=== PATIENT | female | born 2000 | race Caucasian/White ===

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

== ENCOUNTER → 2019-04-19 09:43 | Outpatient (CLI) | payer BC, SELFPAY ==
[2018-08-17 17:57] VITALS: BMI 36.1
[2019-04-19 12:26] LABS: Erythrocyte Sedimentation Rate 68 mm/hr (0-20)
[2019-04-19 12:29] LABS: Absolute Neutrophil Count 8.5 X10^3/uL (2.0-7.7); Basophil# 0.04 X10^3/uL; Basophil% 0.3 % (0-1); Eosinophil# 0.11 X10^3/uL; Eosinophils% 0.9 % (0-5); Hematocrit 36.6 % (37-47); Hemoglobin 11.1 g/dL (12.0-15.0); Mean Corp Hgb Conc 30.3 g/dL (32-36); Mean Corpuscular Hgb 24.4 pg (27.0-32.0); Mean Corpuscular Volume 80.4 fL (81-99); Mean Platelet Vol. 11.5 fl (6.2-12.0); Monocyte% 4.1 % (0-10); NRBC Flagged by Analyzer 0 % (0-5); Neutrophil # 8.52 X10^3/uL (2.7-7.7); Neutrophil % 70.5 % (47-70); Platelet Count 358 K/mm3 (150-450); RBC Distribution Width CV 14.8 % (11.6-14.6); RBC Distribution Width SD 43.2 fl (35.1-43.9); Red Blood Count 4.55 M/mm3 (4.2-5.4); White Blood Count 12.1 K/mm3 (4.4-11.0)
[2019-04-19 12:41] LABS: ALB/GLOB Ratio 0.6 RATIO (0.9-2.4); AST(SGOT) 8 U/L (15-37); Alanine Aminotransfer ALT/SGPT 16 U/L (13-56); Alkaline Phosphatase 103 U/L (45-117); Anion Gap 8 (5-15); BUN 7 mg/dL (7-18); BUN/Creat Ratio 9.9 RATIO (10-20); Calcium,Total 8.9 mg/dL (8.5-10.1); Chloride 109 mmol/L (98-107); Creatinine, Serum 0.71 mg/dL (0.55-1.02); EST Glomerular Filtration Rate 112 mL/min (>60); Est Glom Filt Rate - Afr Amer 135 mL/min (>60); Glucose 75 mg/dL (74-106); Potassium 4.2 mmol/L (3.5-5.1); Sodium Level 141 mmol/L (136-145)
[2019-04-22 15:07] LABS: Beef <0.10 kU/L (Class 0); Chocolate <0.10 kU/L (Class 0); Corn <0.10 kU/L (Class 0); Egg, Whole <0.10 kU/L (Class 0); Milk (Cow) <0.10 kU/L (Class 0); Peanut <0.10 kU/L (Class 0); Pork <0.10 kU/L (Class 0); Soybean <0.10 kU/L (Class 0); Wheat <0.10 kU/L (Class 0)
[2019-04-23 10:11] LABS: Chicken <0.10 kU/L (Class 0); Pork <0.10 kU/L (Class 0)
== END ==
PROVIDERS: Family Provider Family Medicine; PCP Family Medicine; Referring Provider Family Medicine; Visit Provider Family Medicine
DX: R10.31 Right lower quadrant pain (principal)
CPT/HCPCS: 36415; 80053; 85025; 85652; 86003; 86005; 86140

== ENCOUNTER → 2019-04-25 06:51 | Outpatient (CLI) | payer BC, SELFPAY ==
[2018-08-17 17:57] VITALS: BMI 36.1
--- NOTE | 2019-04-25 06:55 | CT_ITS ---
STUDY: CT ABDOMEN AND PELVIS WITH CONTRAST REASON FOR EXAM: Female, 18 years old. Intermittent diffuse abdominal pain for 8 months. Tender right lower quadrant. RADIATION DOSAGE (If Supplied By Facility): CTDIvol = ( 13.48 ) mGy, DLP = ( 101.39 ) mGycm TECHNIQUE: Transaxial images were obtained from the dome of the diaphragm to the symphysis pubis with oral contrast. 100cc IV/Oral Isovue 300 was administered. Sagittal and coronal images were reconstructed. Individualized dose optimization techniques were used for this CT. COMPARISON: None. FINDINGS: The visualized lung bases are unremarkable. The visualized portions of the heart are within normal limits. Normal liver. Normal gallbladder and extrahepatic biliary system. Normal spleen. Normal pancreas. Normal bilateral adrenal glands. Normal right kidney. 3 mm nonobstructive calculus in the upper pole calyx of the left kidney. Normal visualized stomach. Normal small intestine. Normal colon. The appendix is visualized and appears normal. Normal abdominal aorta. Normal inferior vena cava. There is borderline retroperitoneal lymphadenopathy with enlarged nodes no greater than 10mm in the short axis diameter. Normal urinary bladder. Normal abdominal wall. Small benign-appearing bilateral inguinal lymph nodes. Normal osseous structures. CT/Abdomen/Pelvis WITH Contrast IMPRESSION: Nonobstructive calculus in the upper pole calyx of the left kidney. Electronically Signed: Eagle Storey, at 15:16 EDT , Service support ,
== END ==
PROVIDERS: Family Provider Family Medicine; PCP Family Medicine; Referring Provider Family Medicine; Visit Provider Family Medicine
DX: R10.31 Right lower quadrant pain (principal); R19.7 Diarrhea, unspecified
CPT/HCPCS: 74177; Q9967

== ENCOUNTER → 2019-05-02 13:39 | Outpatient (CLI) | payer BC, SELFPAY ==
[2018-08-17 17:57] VITALS: BMI 36.1
[2019-05-05 14:12] LABS: CMV Acute Antibody IgM < 30.0 AU/mL (0.0-29.9); EBV Acute VCA IgM < 36.0 U/mL (0.0-35.9); EBV Early Antigen IgG <9.0 U/mL (0.0-8.9); EBV Nuclear Antigen IgG < 18.0 U/mL (0.0-17.9); EBV-VCA IgG < 18.0 U/mL (0.0-17.9); PARVOVIRUS B19 IGG 5.8 index (0.0-0.8); PARVOVIRUS B19 IGM 0.2 index (0.0-0.8); Toxoplasma Gondii IgM < 3.0 AU/mL (0.0-7.9)
== END ==
PROVIDERS: Family Provider Family Medicine; PCP Family Medicine; Referring Provider Family Medicine; Visit Provider Family Medicine
DX: R59.9 Enlarged lymph nodes, unspecified (principal)
CPT/HCPCS: 36415; 86645; 86663; 86664; 86665; 86747; 86778

== ENCOUNTER → 2019-06-04 11:46 | Outpatient (CLI) | payer BC, SELFPAY ==
[2018-08-17 17:57] VITALS: BMI 36.1
== END ==
PROVIDERS: Family Provider Family Medicine; PCP Family Medicine; Visit Provider Family Medicine
DX: J02.9 Acute pharyngitis, unspecified (principal)
CPT/HCPCS: 87070

== ENCOUNTER → 2020-02-05 08:46 | Outpatient (CLI) | payer OTHER, SELFPAY ==
[2019-08-27 13:50] VITALS: BMI 36.1
[2020-02-05 09:28] LABS: Erythrocyte Sedimentation Rate 29 mm/hr (0-20)
[2020-02-05 09:31] LABS: Absolute Lymphocyte Count 2.71 X10^3/uL (0.83-4.51); Absolute Neutrophil Count 7.9 X10^3/uL (2.0-7.7); Basophil# 0.03 X10^3/uL; Basophil% 0.3 % (0-1); Eosinophil# 0.05 X10^3/uL; Eosinophils% 0.4 % (0-5); Hematocrit 37.9 % (37-47); Hemoglobin 11.6 g/dL (12.0-15.0); Lymphocyte # 2.71 X10^3/ul (4.0); Lymphocyte % 24.3 % (19-41); Mean Corp Hgb Conc 30.6 g/dL (32-36); Mean Corpuscular Hgb 23.8 pg (27.0-32.0); Mean Corpuscular Volume 77.8 fL (81-99); Mean Platelet Vol. 10.8 fl (6.2-12.0); Monocyte# 0.45 X10^3/uL; NRBC Flagged by Analyzer 0 % (0-5); Neutrophil # 7.88 X10^3/uL (2.7-7.7); Neutrophil % 70.6 % (47-70); Platelet Count 440 K/mm3 (150-450); RBC Distribution Width CV 15.9 % (11.6-14.6); RBC Distribution Width SD 44.8 fl (35.1-43.9); Red Blood Count 4.87 M/mm3 (4.2-5.4); White Blood Count 11.2 K/mm3 (4.4-11.0)
[2020-02-05 09:49] LABS: ALB/GLOB Ratio 0.6 RATIO (0.9-2.4); AST(SGOT) 13 U/L (15-37); Alanine Aminotransfer ALT/SGPT 16 U/L (13-56); Albumin, Serum 2.9 g/dL (3.2-5.0); Alkaline Phosphatase 89 U/L (45-117); Anion Gap 10 (5-15); BUN 8 mg/dL (7-18); BUN/Creat Ratio 9.7 RATIO (10-20); Calcium,Total 8.8 mg/dL (8.5-10.1); Chloride 104 mmol/L (98-107); Creatinine, Serum 0.83 mg/dL (0.55-1.02); EST Glomerular Filtration Rate 93 mL/min (>60); Est Glom Filt Rate - Afr Amer 113 mL/min (>60); Ferritin 4 ng/mL (8-252); Globulin 5.2 g/dL (2.2-4.2); Glucose 87 mg/dL (74-106); Iron 46 ug/dL (50-170); Iron Binding Capacity,Total 599 ug/dL (250-450); PERCENT IRON SATURATION 7.7 % (15.0-55.0); Potassium 3.9 mmol/L (3.5-5.1); Protein, Total 8.1 g/dL (6.4-8.2); Sodium Level 138 mmol/L (136-145); Thyroid Stim Hormone (TSH) 3.76 uIU/mL (0.358-3.74)
== END ==
PROVIDERS: PCP Family Medicine; Referring Provider Family Medicine; Visit Provider Family Medicine
DX: R19.4 Change in bowel habit (principal); R70.0 Elevated erythrocyte sedimentation rate
CPT/HCPCS: 36415; 80053; 82728; 83540; 83550; 84443; 85025; 85652; 86140

== ENCOUNTER → 2020-02-07 07:45 | Outpatient (CLI) | payer OTHER, SELFPAY ==
[2019-08-27 13:50] VITALS: BMI 36.1
--- NOTE | 2020-02-07 07:50 | CT_ITS ---
STUDY: CT ABDOMEN AND PELVIS WITH CONTRAST REASON FOR EXAM: Female, 19 years old. LOW ABD PAIN X 1 YR, DIARRHEA/CONSTIPATION RADIATION DOSAGE (If Supplied By Facility): CTDIvol = ( 15.15 ) mGy, DLP = ( 1259.14 ) mGycm TECHNIQUE: Transaxial images were obtained from the dome of the diaphragm to the symphysis pubis with oral contrast. Oral and amp; IV Readi-CAT and amp; 100mL Isovue-300 was administered. Sagittal and coronal images were reconstructed. Individualized dose optimization techniques were used for this CT. COMPARISON: Comparison is made with prior examination dated April 25, 2019. FINDINGS: The visualized lung bases are unremarkable. The visualized portions of the heart are within normal limits. Normal liver. Normal gallbladder and extrahepatic biliary system. Normal spleen. Normal pancreas. Normal bilateral adrenal glands. Normal right kidney. Normal left kidney. Normal visualized stomach. Normal small intestine. Normal colon. The appendix is visualized and appears normal. Normal abdominal aorta. Normal inferior vena cava. Normal retroperitoneum. Normal urinary bladder. Normal abdominal wall. Normal osseous structures. CT/Abdomen/Pelvis WITH Contrast IMPRESSION: Normal enhanced CT of the abdomen and pelvis. Electronically Signed: Eagle Storey, at 9:27 EDT , Service support ,
== END ==
PROVIDERS: PCP Family Medicine; Referring Provider Family Medicine; Visit Provider Family Medicine
DX: R10.30 Lower abdominal pain, unspecified (principal)
CPT/HCPCS: 74177; Q9967

== ENCOUNTER → 2020-02-25 16:37 | Outpatient (CLI) | payer OTHER, SELFPAY ==
[2019-08-27 13:50] VITALS: BMI 36.1
[2020-02-27 16:08] LABS: Endomysial Antibody IgA Negative (Negative)
[2020-03-01 17:45] LABS: Immunoglobulin A 216 mg/dL (87-352); t-Transglutaminase IgA <2 U/mL (0-3)
== END ==
PROVIDERS: PCP Family Medicine; Referring Provider Internal Medicine Gastroenterology; Visit Provider Internal Medicine Gastroenterology
DX: R10.9 Unspecified abdominal pain (principal); R19.7 Diarrhea, unspecified
CPT/HCPCS: 36415; 82784; 83516; 86255

== ENCOUNTER → 2020-03-10 | Outpatient (CLI) | payer OTHER, SELFPAY ==
[2019-08-27 13:50] VITALS: BMI 36.1
--- NOTE | 2020-03-10 12:10 | COLBX_PTH ---
PATIENT: HILDA MORGAN LOC: [facility] U#:[id number] AGE/SX: 19/F ROOM: RE03/10/[address]: Dr. Esteban Rhoades MD : 2000 BED: DIS: 03/10/2020 SPEC #: [id number] RECD: 03/10/20 14:59 STATUS: DAMI MELVIN #: [id number] WALE: 03/10/20 12:[address]: Esteban Rhoades DEPT: SURGICAL PATHOLOGY RECD BY: Fish Mak ENTERED: 03/11/20 07:38 SP TYPE: COLON BX OTHR DR: Dr. Antonio Templeton MD [facility] Tissues: A - Ileum, NOS B - COLON BIOPSY Procedures: Surgery Specimen Level IV HEADER OPERATION: Colonoscopy PRE-OP DIAGNOSIS: Abdominal pain, diarrhea, iron deficiency anemia TISSUE SUBMITTED: A - Terminal ileum, rule out Crohn's, B - Right and left colon, rule out microscopic colitis MICROSCOPIC DIAGNOSIS A. Terminal ileum, biopsy: Fragments of small intestinal mucosa, no pathologic diagnosis. B. Right and left colon, biopsy: Fragments of colonic mucosa, no pathologic diagnosis. MIRANDA:sarah 03/12/20 COMMENT Correlation with clinical, endoscopic findings and appropriate follow up are necessary. MICROSCOPIC DESCRIPTION Slides are reviewed. GROSS DESCRIPTION A - Received in fixative is one container labeled with the patient's name and designated terminal ileum. The specimen consists of multiple irregular fragments of light fontanez soft tissue that in aggregate measure 0.5 x 0.5 x 0.1 cm. The specimen is totally submitted in one cassette. B - Received in fixative is one container labeled with the patient's name and designated right and left colon. The specimen consists of multiple irregular fragments of light fontanez soft tissue that in aggregate measure 1.5 x 0.6 x 0.1 cm. The specimen is totally submitted in one cassette. / MIRANDA:sarah 03/11/20 TC:4 CPT: 51555 x2
== END | disposition home or self-care (01) ==
PROVIDERS: PCP Family Medicine; Referring Provider Internal Medicine Gastroenterology; Visit Provider Internal Medicine Gastroenterology
DX: R10.9 Unspecified abdominal pain (principal); R19.7 Diarrhea, unspecified; D50.9 Iron deficiency anemia, unspecified
CPT/HCPCS: 88305

== ENCOUNTER → 2020-05-09 16:25 | Outpatient (CLI) | payer OTHER, SELFPAY ==
[2020-05-09 13:05] VITALS: BMI 40.1
[2020-05-15 16:43] LABS: HPV Reflexed? NOT INDICATED
== END ==
PROVIDERS: PCP Family Medicine; Referring Provider Obstetrics & Gynecology; Visit Provider Obstetrics & Gynecology
DX: Z12.4 Encounter for screening for malignant neoplasm of cervix (principal)
CPT/HCPCS: 88175; G0145

== ENCOUNTER → 2020-08-01 08:12 | Outpatient (CLI) | payer OTHER, SELFPAY ==
[2020-06-25 14:48] VITALS: BMI 40.4
[2020-08-01 09:22] LABS: Hematocrit 38.4 % (37-47); Hemoglobin 11.7 g/dL (12.0-15.0); Mean Corp Hgb Conc 30.5 g/dL (32-36); Mean Corpuscular Hgb 25.2 pg (27.0-32.0); Mean Corpuscular Volume 82.8 fL (81-99); Mean Platelet Vol. 11.3 fl (6.2-12.0); Platelet Count 364 K/mm3 (150-450); RBC Distribution Width CV 15.5 % (11.6-14.6); RBC Distribution Width SD 46.5 fl (35.1-43.9); Red Blood Count 4.64 M/mm3 (4.2-5.4); White Blood Count 7.9 K/mm3 (4.4-11.0)
[2020-08-01 09:54] LABS: Ferritin 16 ng/mL (8-252); Iron 30 ug/dL (50-170)
== END ==
PROVIDERS: PCP Family Medicine; Referring Provider Internal Medicine Gastroenterology; Visit Provider Internal Medicine Gastroenterology
DX: D50.9 Iron deficiency anemia, unspecified (principal)
CPT/HCPCS: 36415; 82728; 83540; 85027

== ENCOUNTER → 2020-10-03 13:03 | Outpatient (CLI) | payer OTHER, SELFPAY ==
[2020-08-04 09:26] VITALS: BMI 40.5
[2020-10-03 15:16] LABS: Absolute Lymphocyte Count 4.25 X10^3/uL (0.83-4.51); Absolute Neutrophil Count 5.5 X10^3/uL (2.0-7.7); Basophil# 0.05 X10^3/uL; Basophil% 0.5 % (0-1); Eosinophil# 0.12 X10^3/uL; Eosinophils% 1.1 % (0-5); Hematocrit 39.3 % (37-47); Hemoglobin 11.8 g/dL (12.0-15.0); Lymphocyte # 4.25 X10^3/ul (4.0); Lymphocyte % 40.4 % (19-41); Mean Corpuscular Hgb 25.3 pg (27.0-32.0); Mean Corpuscular Volume 84.3 fL (81-99); Mean Platelet Vol. 10.8 fl (6.2-12.0); Monocyte# 0.55 X10^3/uL; Monocyte% 5.2 % (0-10); NRBC Flagged by Analyzer 0 % (0-5); Neutrophil # 5.51 X10^3/uL (2.7-7.7); Neutrophil % 52.5 % (47-70); Platelet Count 336 K/mm3 (150-450); RBC Distribution Width CV 15.7 % (11.6-14.6); RBC Distribution Width SD 48.5 fl (35.1-43.9); Red Blood Count 4.66 M/mm3 (4.2-5.4); White Blood Count 10.5 K/mm3 (4.4-11.0)
[2020-10-03 15:47] LABS: Ferritin 30 ng/mL (8-252); Iron 122 ug/dL (50-170)
== END ==
PROVIDERS: PCP Family Medicine; Referring Provider Internal Medicine Gastroenterology; Visit Provider Internal Medicine Gastroenterology
DX: D50.9 Iron deficiency anemia, unspecified (principal)
CPT/HCPCS: 36415; 82728; 83540; 85025

== ENCOUNTER → 2021-02-25 16:53 | Outpatient (CLI) | payer OTHER, SELFPAY ==
[2020-08-04 09:26] VITALS: BMI 40.5
[2021-02-25 17:50] LABS: Absolute Lymphocyte Count 1.98 X10^3/uL (0.83-4.51); Absolute Neutrophil Count 3.8 X10^3/uL (2.0-7.7); Basophil# 0.03 X10^3/uL; Basophil% 0.5 % (0-1); Eosinophil# 0.08 X10^3/uL; Eosinophils% 1.3 % (0-5); Hematocrit 42.3 % (37-47); Hemoglobin 13.3 g/dL (12.0-15.0); Lymphocyte # 1.98 X10^3/ul (0.83-4.51); Lymphocyte % 31.4 % (19-41); Mean Corp Hgb Conc 31.4 g/dL (32-36); Mean Corpuscular Hgb 27.4 pg (27.0-32.0); Mean Corpuscular Volume 87.2 fL (81-99); Mean Platelet Vol. 10.6 fl (6.2-12.0); Monocyte# 0.39 X10^3/uL; Monocyte% 6.2 % (0-10); NRBC Flagged by Analyzer 0 % (0-5); Neutrophil # 3.82 X10^3/uL (2.7-7.7); Neutrophil % 60.4 % (47-70); Platelet Count 329 K/mm3 (150-450); RBC Distribution Width CV 13.6 % (11.6-14.6); RBC Distribution Width SD 43.8 fl (35.1-43.9); Red Blood Count 4.85 M/mm3 (4.2-5.4); White Blood Count 6.3 K/mm3 (4.4-11.0)
[2021-02-25 18:29] LABS: Erythrocyte Sedimentation Rate 65 mm/hr (0-30)
[2021-02-25 18:42] LABS: ALB/GLOB Ratio 0.8 RATIO (0.9-2.4); AST(SGOT) 19 U/L (15-37); Alanine Aminotransfer ALT/SGPT 24 U/L (13-56); Albumin, Serum 3.8 g/dL (3.2-5.0); Alkaline Phosphatase 183 U/L (45-117); Anion Gap 9 (5-15); BUN 11 mg/dL (7-18); BUN/Creat Ratio 14.3 RATIO (10-20); Calcium,Total 8.9 mg/dL (8.5-10.1); Chloride 102 mmol/L (98-107); Creatinine, Serum 0.77 mg/dL (0.55-1.02); EST Glomerular Filtration Rate 100 mL/min (>60); Est Glom Filt Rate - Afr Amer 121 mL/min (>60); Free T3 2.9 pg/mL (2.18-3.98); Glucose 71 mg/dL (74-106); Potassium 3.8 mmol/L (3.5-5.1); Protein, Total 8.8 g/dL (6.4-8.2); Sodium Level 137 mmol/L (136-145); T4 Free Direct 1.08 ng/dL (0.76-1.46); Thyroid Stim Hormone (TSH) 1.99 uIU/mL (0.358-3.74)
[2021-02-27 07:30] LABS: ASO Titer 27.2 IU/mL (0.0-200.0)
[2021-02-27 11:04] LABS: HCG BETA-SUBUNIT QUANT. < 1 mIU/mL (.)
== END ==
PROVIDERS: PCP Family Medicine; Visit Provider Family Medicine
DX: R53.83 Other fatigue (principal); R70.0 Elevated erythrocyte sedimentation rate
CPT/HCPCS: 36415; 80053; 84439; 84443; 84481; 84702; 85025; 85652; 86060; 86140; 86141

== ENCOUNTER 2021-03-06 12:55 | Emergency (ER) | payer OTHER, SELFPAY ==
[2021-03-01 09:38] VITALS: BMI 40.0
[2021-03-06 12:56] VITALS: BP 163/82; PULSE 122; RESP 18; TEMP 36.4; O2SAT 97; BMI 40.4
--- NOTE | 2021-03-06 14:20 | RAD_ITS ---
STUDY: X-RAY - ABDOMEN/PELVIS REASON FOR EXAM: Female, 20 years old. Constipation TECHNIQUE: Single AP view of the abdomen / pelvis. COMPARISON: None. FINDINGS: Normal visualized lung bases. There is a moderate amount of colonic fecal material. The visualized liver, spleen and kidneys are grossly normal in size and morphology. An IUD is seen in the pelvis. Normal visualized osseous structures. RAD/Abdomen Single View IMPRESSION: Moderate amount of fecal material is seen in the pelvis. Electronically Signed: Eagle Storey MD at 14:49 EDT , Service support ,
[2021-03-06] MEDS: Ondansetron ODT 4 MG Tablet PO (14:42)
--- NOTE | 2021-03-06 15:13 | EX.ED.DYSGE1 ---
HPI History of Present Illness Chief Complaint: Constipation Informant: patient Narrative Narrative: 20-year-old female states that last week she was not feeling very well. She noted fatigue congestion. She was experiencing earache and headache. She was seen at urgent care. She got a prescription for Augmentin which was filled on Tuesday. She states that yesterday and today she has had vomiting and she has been constipated for approximately 3 days. She states she feels very full and distended. She has been having flatus. No fevers. [facility] Medical History IBS (irritable bowel syndrome) Iron deficiency Vertigo Home Medications levonorgestrel 20.1 mcg/24 hrs (6 yrs) 52 mg intrauterine device 1 device INTRAUTERINE ONCE #1 ea 06/25/20 [Rx Last Taken Unknown] alosetron 0.5 mg tablet 0.5 mg PO DAILY 08/04/20 [History Last Taken Unknown] albuterol sulfate 90 mcg/actuation aerosol inhaler 1 - 2 puff INHALATION Q6H PRN #8.5 g 03/01/21 [Rx Last Taken Unknown] amoxicillin 875 mg-potassium clavulanate 125 mg tablet 1 tab PO BID #14 tab 03/04/21 [Rx Last Taken Unknown] magnesium citrate 300 ml PO X1 #2 bottle 03/06/21 [Rx Last Taken Unknown] ondansetron 4 mg PO Q6H PRN PRN #15 tab 03/06/21 [Rx Last Taken Unknown] Allergy/AdvReac Type Severity Reaction Status Date / Time No Known Allergies Allergy Verified 03/06/21 12:59 Social History number of children: 0 current occupational status: unemployed Smoking Status: Never smoker alcohol intake: current alcohol intake frequency: a few times a week substance use type: does not use diet: vegetarian seatbelt use: always do you feel safe at home: Yes additional social history: -Yaniv PATI ROS ED Constitutional Constitutional ED: Denies chills or weight loss Eyes Eyes: Denies change in vision or diplopia ENT ENT ED: Reports ear pain; Denies rhinorrhea or sore throat Cardiovascular Cardiovascular: Denies chest pain, orthopnea, palpitations or racing heartbeat Respiratory/Chest Respiratory/Chest: Denies cough, dyspnea or orthopnea Gastrointestinal Gastrointestinal: Reports abdominal pain, constipation, nausea and vomiting; Denies diarrhea Genitourinary Genitourinary ED: Denies dysuria, hematuria or urinary frequency Musculoskeletal Musculoskeletal: Denies arthralgias or myalgias Integumentary Denies abscess or rash Neurologic Neurologic: Reports headache(s); Denies weakness Psychiatric Psychiatric: Denies anxiety, depression, suicidal ideation or suicidal thoughts Endocrine Endocrinology: Denies polydipsia, polyphagia or polyuria Allergic/Immunologic Allergic/Immunologic ED: Denies mouth swelling, tongue swelling or urticaria EXAM Physical Exam Const Vital Signs: 03/06/21 12:56 Temperature 97.6 F L Temperature Source Temporal Pulse Rate 122 H Respiratory Rate 18 Blood Pressure 163/82 H Blood Pressure Mean 109 Pulse Ox 97 Oxygen Delivery Method Room Air Positive well nourished and well developed General Appearance ED: well developed HEENT Reports normocephalic, head/scalp atraumatic and moist mucous membranes Eyes PERRL and EOMs intact bilaterally Neck no lymphadenopathy, supple and no JVD Resp normal respiratory effort and clear to auscultation bilaterally Cardio regular rate, regular rhythm and no murmurs GI normal to inspection, nondistended, normoactive bowel sounds and non-tender Palpation: soft Back/Spine no CVA tenderness and normal ROM Extremity normal to inspection General Extremety ED: Negative for edema General Extremity: Negative for edema Neuro oriented x3 and CN's II-XII intact bilaterally Sensorium / Orientation: alert Motor Exam: strength 5/5 throughout Psych mental status grossly normal Mood & Affect: Negative for depressed or tearful Skin no rashes or lesions noted and no wounds MDM MDM MDM Narrative Medical decision making narrative: My impression of the abdominal x-rays is moderate stool consistent with constipation. No obstructive pattern seen. Patient received Zofran and her nausea significantly improved. She is tolerated a popsicle. At this point I will refer the patient to have Zofran and magnesium citrate at home return if worsening or concerns Radiography Diagnostic Testing: Radiology Impression KUB X-Ray 03/06/21 14:20 IMPRESSION: Moderate amount of fecal material is seen in the pelvis. Electronically Signed: Eagle Storey MD at 14:49 EDT , Service support , Discharge Plan Triage Chief Complaint: Constipation ED Provider: Jace Canseco Dx/Rx/DC Orders Clinical Impression: Constipation, Vomiting Instructions: ED Constipation (Adult) Prescriptions: New ondansetron [ondansetron] 4 MG tablet 4 mg PO Q6H PRN PRN (Reason: Nausea) Qty: 15 RF: 0 magnesium citrate Solution 300 ml PO X1 Qty: 2 RF: 0 No Action Liletta 20.1 mcg/24 hrs (6 yrs) 52 mg intrauterine device 1 device intrauterine ONCE Qty: 1 RF: 0 alosetron 0.5 mg tablet 0.5 mg PO DAILY RF: 0 albuterol sulfate [ProAir HFA] 90 mcg/actuation HFA aerosol inhaler 1 - 2 puff inhalation Q6H PRN (Reason: shortness of breath or wheezing) Qty: 8.5 RF: 1 amoxicillin-pot clavulanate [Augmentin] 875-125 mg tablet 1 tab PO BID Qty: 14 RF: 0 Primary Care Provider: Antonio Templeton Referrals: Antonio Templeton MD [Primary Care Provider] - As Needed Disposition Disposition: Home, Self Care
== END 2021-03-06 15:34 | disposition home or self-care (01) ==
PROVIDERS: Emergency Provider Emergency Medicine; PCP Family Medicine
DX: K59.00 Constipation, unspecified (principal); R11.10 Vomiting, unspecified; H92.09 Otalgia, unspecified ear; R51.9 Headache, unspecified; R53.83 Other fatigue
CPT/HCPCS: 74018; 99283

== ENCOUNTER → 2021-03-09 15:45 | Outpatient (CLI) | payer OTHER, SELFPAY ==
[2021-03-06 12:56] VITALS: BMI 40.4
[2021-03-09 17:58] LABS: Erythrocyte Sedimentation Rate 43 mm/hr (0-30)
[2021-03-09 18:30] LABS: ALB/GLOB Ratio 0.6 RATIO (0.9-2.4); AST(SGOT) 280 U/L (15-37); Alanine Aminotransfer ALT/SGPT 410 U/L (13-56); Albumin, Serum 3.2 g/dL (3.2-5.0); Alkaline Phosphatase 428 U/L (45-117); Anion Gap 6 (5-15); BUN 7 mg/dL (7-18); BUN/Creat Ratio 6.5 RATIO (10-20); Calcium,Total 8.7 mg/dL (8.5-10.1); Chloride 105 mmol/L (98-107); Creatinine, Serum 1.07 mg/dL (0.55-1.02); EST Glomerular Filtration Rate 68 mL/min (>60); Est Glom Filt Rate - Afr Amer 83 mL/min (>60); Glucose 85 mg/dL (74-106); Potassium 3.9 mmol/L (3.5-5.1); Protein, Total 8.2 g/dL (6.4-8.2); Rheumatoid Factor < 10.0 IU/mL (<15); Sodium Level 138 mmol/L (136-145)
[2021-03-12 10:57] LABS: CCP IgG Antibodies 12 units (0-19)
[2021-03-12 16:21] LABS: ANTINUCLEAR ANTIBODIES DIRECT Negative (Negative)
== END ==
PROVIDERS: PCP Family Medicine; Referring Provider Family Medicine; Visit Provider Family Medicine
DX: R70.0 Elevated erythrocyte sedimentation rate (principal)
CPT/HCPCS: 36415; 80053; 85652; 86038; 86141; 86200; 86431

== ENCOUNTER → 2021-03-17 16:01 | Outpatient (CLI) | payer OTHER, SELFPAY ==
[2021-03-06 12:56] VITALS: BMI 40.4
[2021-03-17 18:06] LABS: Erythrocyte Sedimentation Rate 72 mm/hr (0-30)
[2021-03-18 10:18] LABS: Hepatitis B Surface Antibody Reactive; Hepatitis B Surface Antigen Non-Reactive (Nonreactive); Hepatitis C Antibody Non-Reactive (Nonreactive)
[2021-03-20 10:49] LABS: CCP IgG Antibodies 12 units (0-19)
== END ==
PROVIDERS: PCP Family Medicine; Referring Provider Internal Medicine Rheumatology; Visit Provider Internal Medicine Rheumatology
DX: M06.4 Inflammatory polyarthropathy (principal); K58.0 Irritable bowel syndrome with diarrhea; R42 Dizziness and giddiness; D50.9 Iron deficiency anemia, unspecified
CPT/HCPCS: 36415; 85652; 86140; 86200; 86706; 86803; 87340

== ENCOUNTER → 2021-03-18 07:48 | Outpatient (CLI) | payer OTHER, SELFPAY ==
[2021-03-06 12:56] VITALS: BMI 40.4
--- NOTE | 2021-03-18 07:51 | US_ITS ---
STUDY: ABDOMINAL ULTRASOUND - RIGHT UPPER QUADRANT REASON FOR VISIT: Female, 20 years old ELEVATED ENZYMES . Pruritus. TECHNIQUE: Ultrasound evaluation of the right upper quadrant was performed with real-time and static enamorado-scale imaging. TECHNICAL QUALITY: Adequate. COMPARISON: None. FINDINGS: Liver: The liver measures 16.2 cm. There is increased echogenicity consistent with a mild degree of fatty infiltration. The bile ducts are within normal limits. There is hepatic color flow. The direction of portal flow is hepatopetal. There is no demonstrated mass lesion. Gallbladder: Normal distended gallbladder. The gallbladder wall measures 2.8 mm. There is a negative sonographic Schaeffer''s sign. There is no pericholecystic fluid. There are no gallstones. Common Bile Duct (C.B.D.): The common bile duct measures 4.8 mm. Pancreas: Normal size of the head, body and tail of the pancreas. There is normal echogenicity of the pancreas. There is no demonstrated pancreatic mass or cyst. Right Kidney: Normal size of the right kidney. The right kidney measures 10.8 cm x 5.6 cm x 4.5 cm. Normal renal cortex. The right cortex measures 1.6 cm. There is no demonstrated renal mass or cyst. There is no right hydronephrosis. US/Liver IMPRESSION: Mild degree of fatty infiltration of the liver. Electronically Signed: Eagle Storey MD at 9:13 EDT , Service support ,
== END ==
PROVIDERS: PCP Family Medicine; Referring Provider Internal Medicine Rheumatology; Visit Provider Internal Medicine Rheumatology
DX: M06.4 Inflammatory polyarthropathy (principal); K58.0 Irritable bowel syndrome with diarrhea; R42 Dizziness and giddiness; D50.9 Iron deficiency anemia, unspecified
CPT/HCPCS: 76705

== ENCOUNTER → 2021-05-13 16:34 | Outpatient (CLI) | payer OTHER, SELFPAY ==
[2021-05-13 18:04] LABS: ALB/GLOB Ratio 0.8 RATIO (0.9-2.4); AST(SGOT) 22 U/L (15-37); Alanine Aminotransfer ALT/SGPT 38 U/L (13-56); Albumin, Serum 3.7 g/dL (3.2-5.0); Alkaline Phosphatase 121 U/L (45-117); Anion Gap 5 (5-15); BUN 12 mg/dL (7-18); BUN/Creat Ratio 15.2 RATIO (10-20); Calcium,Total 9.1 mg/dL (8.5-10.1); Chloride 106 mmol/L (98-107); Creatinine, Serum 0.79 mg/dL (0.55-1.02); EST Glomerular Filtration Rate 96 mL/min (>60); Est Glom Filt Rate - Afr Amer 117 mL/min (>60); Globulin 4.6 g/dL (2.2-4.2); Glucose 91 mg/dL (74-106); Potassium 3.8 mmol/L (3.5-5.1); Protein, Total 8.3 g/dL (6.4-8.2); Sodium Level 139 mmol/L (136-145)
== END ==
PROVIDERS: PCP Family Medicine; Referring Provider Internal Medicine Gastroenterology; Visit Provider Internal Medicine Gastroenterology
DX: M19.90 Unspecified osteoarthritis, unspecified site (principal)
CPT/HCPCS: 36415; 80053; 86140

== ENCOUNTER → 2021-05-20 18:16 | Outpatient (CLI) | payer OTHER, SELFPAY ==
--- NOTE | 2021-05-20 18:20 | US_ITS ---
EXAM: US PELVIS TRANSABDOMINAL, COMPLETE : 2000 CLINICAL INDICATION: IUD PLACEMENT TECHNIQUE: Transabdominal pelvic ultrasound was performed with grayscale and color Doppler imaging. This report was created using [employer] report [employer] technology. COMPARISON: None. FINDINGS: UTERUS/CERVIX: Uterus measures 6.9 x 3.2 x 4.6 cm. The endometrium measures 3 mm. Anteverted. There is no uterine mass. RIGHT OVARY: The right ovary measures 3.2 x 1.9 x 2.3 cm. Blood flow is present in the right ovary. LEFT OVARY: The left ovary measures 1.5 x 0.9 x 1.1 cm. Blood flow is present in the left ovary. FREE FLUID: None. BLADDER: Unremarkable as visualized. Wall is normal thickness for degree of distention. TUBES, LINES AND DEVICES: There is an echogenic focus in the endometrium compatible with an intrauterine device. US/Pelvic (Non ) IMPRESSION: Intrauterine device in place. There is no acute abnormality. at 2253 Reported and signed by: Skip Glez MD Electronically Signed: Skpi Glez MD at 22:52 EDT Tel , Service support ,
--- NOTE | 2021-05-20 18:21 | US_ITS ---
EXAM: US PELVIS TRANSABDOMINAL, COMPLETE : 2000 CLINICAL INDICATION: IUD PLACEMENT TECHNIQUE: Transabdominal pelvic ultrasound was performed with grayscale and color Doppler imaging. This report was created using [employer] report [employer] technology. COMPARISON: None. FINDINGS: UTERUS/CERVIX: Uterus measures 6.9 x 3.2 x 4.6 cm. The endometrium measures 3 mm. Anteverted. There is no uterine mass. RIGHT OVARY: The right ovary measures 3.2 x 1.9 x 2.3 cm. Blood flow is present in the right ovary. LEFT OVARY: The left ovary measures 1.5 x 0.9 x 1.1 cm. Blood flow is present in the left ovary. FREE FLUID: None. BLADDER: Unremarkable as visualized. Wall is normal thickness for degree of distention. TUBES, LINES AND DEVICES: There is an echogenic focus in the endometrium compatible with an intrauterine device. US/Transvaginal Non- IMPRESSION: Intrauterine device in place. There is no acute abnormality. at 2253 Reported and signed by: Skip Glez MD Electronically Signed: Skip Glez MD at 22:52 EDT Tel , Service support ,
== END ==
PROVIDERS: PCP Family Medicine; Visit Provider Obstetrics & Gynecology
DX: Z30.431 Encounter for routine checking of intrauterine contraceptive device (principal)
CPT/HCPCS: 76830; 76856

== ENCOUNTER → 2021-07-16 07:45 | Outpatient (CLI) | payer OTHER, SELFPAY ==
[2021-07-16 10:14] LABS: Absolute Lymphocyte Count 3.46 X10^3/uL (0.83-4.51); Absolute Neutrophil Count 3.4 X10^3/uL (2.0-7.7); Basophil# 0.03 X10^3/uL; Basophil% 0.4 % (0-1); Eosinophils% 1.4 % (0-5); Hematocrit 41.2 % (37-47); Hemoglobin 13.4 g/dL (12.0-15.0); Lymphocyte # 3.46 X10^3/ul (0.83-4.51); Lymphocyte % 46.8 % (19-41); Mean Corp Hgb Conc 32.5 g/dL (32-36); Mean Corpuscular Volume 89.2 fL (81-99); Mean Platelet Vol. 11.7 fl (6.2-12.0); Monocyte# 0.42 X10^3/uL; Monocyte% 5.7 % (0-10); NRBC Flagged by Analyzer 0 % (0-5); Neutrophil # 3.38 X10^3/uL (2.7-7.7); Neutrophil % 45.6 % (47-70); Platelet Count 288 K/mm3 (150-450); RBC Distribution Width CV 13.2 % (11.6-14.6); Red Blood Count 4.62 M/mm3 (4.2-5.4); White Blood Count 7.4 K/mm3 (4.4-11.0)
[2021-07-16 10:34] LABS: ALB/GLOB Ratio 0.8 RATIO (0.9-2.4); AST(SGOT) 23 U/L (15-37); Alanine Aminotransfer ALT/SGPT 31 U/L (13-56); Albumin, Serum 3.6 g/dL (3.2-5.0); Alkaline Phosphatase 118 U/L (45-117); Anion Gap 6 (5-15); BUN 12 mg/dL (7-18); BUN/Creat Ratio 14.9 RATIO (10-20); Calcium,Total 9.3 mg/dL (8.5-10.1); Chloride 106 mmol/L (98-107); EST Glomerular Filtration Rate 95 mL/min (>60); Est Glom Filt Rate - Afr Amer 114 mL/min (>60); Globulin 4.8 g/dL (2.2-4.2); Glucose 93 mg/dL (74-106); Potassium 4.2 mmol/L (3.5-5.1); Protein, Total 8.4 g/dL (6.4-8.2); Sodium Level 140 mmol/L (136-145)
== END ==
PROVIDERS: PCP Family Medicine; Referring Provider Internal Medicine Rheumatology; Visit Provider Internal Medicine Rheumatology
DX: M06.4 Inflammatory polyarthropathy (principal); K76.0 Fatty (change of) liver, not elsewhere classified; K58.0 Irritable bowel syndrome with diarrhea; R42 Dizziness and giddiness; D50.9 Iron deficiency anemia, unspecified; Z79.899 Other long term (current) drug therapy
CPT/HCPCS: 36415; 80053; 85025

== ENCOUNTER 2021-09-07 11:43 | Outpatient (CLI) | payer OTHER, SELFPAY ==
--- NOTE | 2021-09-07 11:46 | RAD_ITS ---
STUDY: X-RAY CHEST REASON FOR EXAM: Female, 21 years old. Cough and shortness of breath. TECHNIQUE: PA and lateral views of the chest. COMPARISON: None. FINDINGS: The lungs are clear and expanded. There is no demonstrated pleural abnormality. Normal size heart. Normal mediastinum and fortunato. Normal visualized pulmonary arteries. Normal visualized aortic arch and descending thoracic aorta. Normal visualized thoracic spine. Normal visualized ribs, clavicles, and shoulders. There is no demonstrated abnormality of the visualized soft tissue structures of the upper abdomen. RAD/Chest PA and Lateral IMPRESSION: Normal x-ray examination of the chest. Electronically Signed: Eagle Storey MD at 14:28 EST , Service support ,
== END 2021-09-07 23:59 | disposition short-term general hospital (02) ==
PROVIDERS: PCP Family Medicine; Referring Provider Family Medicine; Visit Provider Family Medicine
DX: J39.9 Disease of upper respiratory tract, unspecified (principal); R06.02 Shortness of breath
CPT/HCPCS: 71046; 87635; U0003; U0005

== ENCOUNTER 2021-10-07 16:13 | Outpatient (CLI) | payer OTHER, SELFPAY ==
[2021-10-07 17:26] LABS: GGTP 21 U/L (5-55); LDH 265 U/L (84-246)
[2021-10-07 18:04] LABS: Erythrocyte Sedimentation Rate 18 mm/hr (0-30)
[2021-10-09 14:09] LABS: Anti-Centromere B Ab <0.2 AI (0.0-0.9); Anti-Chromatin <0.2 AI (0.0-0.9); Anti-Jo <0.2 AI (0.0-0.9); Anti-Scleroderma-70 AB <0.2 AI (0.0-0.9); RNP Ab 0.7 AI (0.0-0.9); SJOGREN'S Anti-SS-A test < 0.2 AI (0.0-0.9); SJOGREN'S Anti-SS-B test < 0.2 AI (0.0-0.9); Smith Ab <0.2 AI (0.0-0.9)
[2021-10-09 14:42] LABS: Anti-dsDNA Ab <1 IU/mL (0-9)
[2021-10-09 20:46] LABS: Anti-Mitochondrial AB <20.0 Units (0.0-20.0)
[2021-10-14 17:07] LABS: Albumin 4.2 g/dL (2.9-4.4); Alpha-1-Globulins 0.3 g/dL (0.0-0.4); Alpha-2-Globulins 1.2 g/dL (0.4-1.0); Cytoplasmic Ab (C-ANCA) <1:20 titer (Neg:<1:20); Gamma Globulin 1.4 g/dL (0.4-1.8); Immunoglobulin A 232 mg/dL (87-352); Immunoglobulin G 1197 mg/dL (586-1602); Immunoglobulin M 197 mg/dL (26-217); PROEL- TOTAL PROTEIN 8.5 g/dL (6.0-8.5)
[2021-10-14 17:55] LABS: Immunoglobulin E 8 IU/mL (6-495); Perinuclear Ab (P-ANCA) <1:20 titer (Neg:<1:20)
== END 2021-10-07 23:59 | disposition home or self-care (01) ==
PROVIDERS: PCP Family Medicine; Visit Provider Internal Medicine Gastroenterology
DX: M06.9 Rheumatoid arthritis, unspecified (principal)
CPT/HCPCS: 36415; 82784; 82785; 82977; 83516; 83615; 84165; 85652; 86140; 86225; 86235; 86256; 86334

== ENCOUNTER 2021-12-11 07:52 | Outpatient (CLI) | payer OTHER, SELFPAY ==
--- NOTE | 2021-12-11 07:54 | US_ITS ---
STUDY: ABDOMINAL ULTRASOUND - RIGHT UPPER QUADRANT REASON FOR VISIT: Female, 21 years old . Fatty liver. TECHNIQUE: Ultrasound evaluation of the right upper quadrant was performed with real-time and static enamorado-scale imaging. TECHNICAL QUALITY: Adequate. COMPARISON: Comparison is made with prior examination dated 03/18/2021. FINDINGS: Liver: The liver measures 15.2 cm. There is increased echogenicity consistent with a mild degree of fatty infiltration. The bile ducts are within normal limits. There is hepatic color flow. The direction of portal flow is hepatopetal. There is no demonstrated mass lesion. Gallbladder: Normal distended gallbladder. The gallbladder wall measures 2.1 mm. There is a negative sonographic Schaeffer''s sign. There is no pericholecystic fluid. There are no gallstones. Common Bile Duct (C.B.D.): The common bile duct measures 3.4 mm. Pancreas: Normal size of the head, body and tail of the pancreas. There is normal echogenicity of the pancreas. There is no demonstrated pancreatic mass or cyst. Right Kidney: Normal size of the right kidney. The right kidney measures 11 cm x 5.5 cm x 4.5 cm. Normal renal cortex. The right cortex measures 1.5 cm. There is no demonstrated renal mass or cyst. There is no right hydronephrosis. US/Abdomen Limited IMPRESSION: Mild degree of fatty infiltration of the liver. This is unchanged. Electronically Signed: Eagle Storey MD at 9:10 EDT ,
--- NOTE | 2021-12-11 07:54 | US_ITS ---
STUDY: ABDOMINAL ULTRASOUND - ELASTOGRAPHY REASON FOR VISIT: Female, 21 years old. Fatty infiltration of the liver. TECHNIQUE: Liver stiffness measurements were obtained on a [employer] RS 85 ultrasound machine using a CA 1-7 probe following the SRU guidelines. 3 measurements were obtained using a 2-D-SWE method. The IQR/M was 22% suggesting a quality data set. TECHNICAL QUALITY: Adequate. COMPARISON: Comparison is made with prior ultrasound done earlier today. FINDINGS: Liver: Fatty infiltration of the liver. Median liver stiffness measured 4.8 kPa. US/Elastography Parenchyma/Organ IMPRESSION: Liver stiffness measures 4.8 kPa compatible with F0-F1 (Normal to mild liver fibrosis) Metavir score. Electronically Signed: Eagle Storey MD at 9:12 EDT ,
== END 2021-12-11 23:59 | disposition home or self-care (01) ==
LOC: US 07:53
PROVIDERS: PCP Family Medicine; Referring Provider Internal Medicine Gastroenterology; Visit Provider Internal Medicine Gastroenterology
DX: K76.0 Fatty (change of) liver, not elsewhere classified (principal)
CPT/HCPCS: 76705; 76981

== ENCOUNTER 2022-10-24 14:26 | Emergency (ER) | payer OTHER, SELFPAY ==
[2022-10-24 14:28] VITALS: BP 155/108; PULSE 107; RESP 16; TEMP 36.7; O2SAT 97; BMI 40.3
--- NOTE | 2022-10-24 14:39 | CT_ITS ---
INDICATION: Right flank pain EXAMINATION: CT ABDOMEN AND PELVIS WITHOUT CONTRAST - CT Abdomen And Pelvis W/O Contrast Injection TECHNIQUE: Helically acquired images were obtained of the abdomen and pelvis without oral or IV contrast. A radiation dose optimization technique was used for this scan. IV Contrast dosage and agent: None. Oral contrast: None. COMPARISON: 02/07/2020 FINDINGS: LOWER CHEST: Lung bases are clear. No cardiomegaly or pericardial effusion. LIVER: Homogeneous. No focal mass. GALLBLADDER AND BILIARY TREE: No calcified gallstones. No gallbladder distension or wall edema. No intra- or extrahepatic biliary ductal dilation. PANCREAS: No focal cystic or solid mass. SPLEEN: Normal size without focal cystic or solid mass. ADRENAL GLANDS: No nodules. KIDNEYS AND URETERS: Bilateral nonobstructing nephrolithiasis. Mild prominence right renal collecting system with 3 mm calculus in the distal right ureter near the UVJ. PERITONEUM: No ascites or free air. BOWEL: No evidence of acute appendicitis. No stomach or bowel distension. No focal inflammatory change. LYMPH NODES: Scattered, mildly enlarged mesenteric lymph nodes in the mid abdomen. VESSELS: Aorta is non-dilated. URINARY BLADDER: Nondistended. REPRODUCTIVE ORGANS: IUD in place. 2.0 cm left ovarian cyst. ABDOMINAL WALL: No discrete abdominal or pelvic wall hernia. BONES: Unremarkable. CT/Abdomen/Pelvis without Cont IMPRESSION: Partially obstructing 3 mm distal right ureteral calculus. Electronically Signed: Luis Cortes MD at 16:06 EST ,
--- NOTE | 2022-10-24 14:41 | EX.ED.DYSGE1 ---
HPI <CORAL Gatica - Last Filed: 10/24/22 17:05> History of Present Illness Chief Complaint: Flank Pain Narrative Narrative: 22-year-old female with history of IBS, obesity, arthritis who has an IUD with a negative test last week presents to the emergency department with severe sudden onset of right back pain that rates down her right front. Patient states it did wake her from sleep. She did not think anything of it secondary to her IBS pain. However the pain got much worse as the day has been going on. Patient states that radiates from her back to her anterior lower abdomen. She denies any urinary symptoms. Denies any fever or chills. Did have 1 episode of nausea and vomiting PFSH <CORAL Gatica - Last Filed: 10/24/22 17:05> PFSH Medical History IBS (irritable bowel syndrome) Iron deficiency Vertigo Home Medications levonorgestrel 20.4 mcg/24 hrs (8 yrs) 52 mg intrauterine device (Liletta) 1 device intrauterine ONCE #1 ea 06/25/20 [Rx Last Taken Unknown] albuterol sulfate 90 mcg/actuation aerosol inhaler (ProAir HFA) 1 - 2 puff inhalation Q6H PRN shortness of breath or wheezing #8.5 grams 03/01/21 [Rx Last Taken Unknown] magnesium citrate 300 ml PO X1 #2 BOTTLES 03/06/21 [Rx Last Taken Unknown] ondansetron 4 mg disintegrating tablet 4 mg PO Q6H PRN PRN Nausea #15 tabs 03/06/21 [Rx Last Taken Unknown] prednisone 10 mg tablet 10 mg PO DAILY PRN 05/13/21 [History Last Taken Unknown] hyoscyamine sulfate 0.125 mg disintegrating tablet 0.125 mg PO BID-QID PRN dyspepsia #30 tabs 11/19/21 [Rx Last Taken Unknown] celecoxib 200 mg capsule 200 mg PO DAILY 02/12/22 [History Last Taken Unknown] alosetron 0.5 mg tablet 0.5 mg PO DAILY #90 tabs 04/05/22 [Rx Last Taken Unknown] ondansetron 4 mg disintegrating tablet 4 mg PO Q8H PRN PRN Nausea #10 tabs 10/24/22 [Rx Last Taken Unknown] oxycodone-acetaminophen 5 mg-325 mg tablet (Percocet) 1 tab PO Q8H PRN pain 3 days #10 tabs 10/24/22 [Rx Last Taken Unknown] Allergy/AdvReac Type Severity Reaction Status Date / Time amoxicillin [From Augmentin] Allergy Other Verified 10/24/22 14:27 clavulanic acid Allergy Other Verified 10/24/22 14:27 [From Augmentin] Surgical History no surgical history Social History number of children: 0 current occupational status: employed Smoking Status: Never smoker alcohol intake: current alcohol intake frequency: a few times a week substance use type: does not use diet: vegetarian seatbelt use: always do you feel safe at home: Yes additional social history: Works at [employer] EXAM <CORAL Gatica - Last Filed: 10/24/22 17:05> Physical Exam Const Vital Signs: 10/24/22 14:28 10/24/22 14:53 10/24/22 17:30 Temperature 98.1 F 98.2 F Temperature Source Temporal Temporal Pulse Rate 107 H 88 Respiratory Rate 16 15 Respiratory Effort Normal Non-Labored Blood Pressure 155/108 H 132/70 H Blood Pressure Mean 123 90 Pulse Ox 97 97 Oxygen Delivery Method Room Air Room Air <Dr. George Black DO - Last Filed: 10/24/22 22:01> Physical Exam Const Vital Signs: 10/24/22 14:28 10/24/22 14:53 10/24/22 17:30 Temperature 98.1 F 98.2 F Temperature Source Temporal Temporal Pulse Rate 107 H 88 Respiratory Rate 16 15 Respiratory Effort Normal Non-Labored Blood Pressure 155/108 H 132/70 H Blood Pressure Mean 123 90 Pulse Ox 97 97 Oxygen Delivery Method Room Air Room Air MDM <CORAL Gatica - Last Filed: 10/24/22 17:05> MDM Lab Data Labs: Laboratory Results - last 24 hr 10/24/22 10/24/22 10/24/22 14:47 14:47 14:50 WBC 13.2 H RBC 4.33 Hgb 13.3 Hct 39.4 MCV 91.0 MCH 30.7 MCHC 33.8 RDW Std Deviation 40.3 RDW Coeff of Celeste 12.2 Plt Count 290 MPV 10.5 Immature Gran % (Auto) 0.300 Neut % (Auto) 60.3 Lymph % (Auto) 32.7 Cooke % (Auto) 5.7 Eos % (Auto) 0.8 Baso % (Auto) 0.2 Absolute Neuts (auto) 7.9 H Absolute Lymphs (auto) 4.31 Nucleated RBC % 0 Sodium 140 Potassium 3.8 Chloride 105 Carbon Dioxide 27.0 Anion Gap 8 BUN 10 Creatinine 0.75 Estim Creat Clear Calc 109.21 Est GFR (MDRD) Af Amer 123 Est GFR (MDRD) Non-Af 102 BUN/Creatinine Ratio 13.4 Glucose 98 Calcium 9.5 Total Bilirubin 0.20 AST 14 L ALT 26 Alkaline Phosphatase 121 H Total Protein 7.6 Albumin 3.5 Globulin 4.1 Albumin/Globulin Ratio 0.9 Lipase 129 Urine Color Yellow Urine Clarity Sl. Cloudy Urine pH 6.5 Ur Specific [place] 1.020 Urine Protein 30 H Urine Glucose (UA) Normal Urine Ketones 5 H Urine Occult Blood 250 H Urine Nitrite Negative Urine Bilirubin Negative Urine Urobilinogen Normal Ur Leukocyte Esterase 25 H Urine RBC 25-50 SEEN Urine WBC 0-5 SEEN Ur Squamous Epith Cells 0-5 SEEN Urine Bacteria 0 SEEN Urine Mucus 0 SEEN Urine Test Negative Radiography Diagnostic Testing: Clinical Impression(s) from Imaging Studies Abdomen/Pelvis CT 10/24/22 14:39 IMPRESSION: Partially obstructing 3 mm distal right ureteral calculus. Electronically Signed: Luis Cortes MD at 16:06 EST , Treatment and Re-Evaluation Narrative: All radiologic examinations were read, reviewed by the emergency department attending. From these reads, a plan of care will be put in place. Patient arrives in mild distress secondary to right-sided flank pain. Patient presents to the emergency department with right flank pain, right lower abdominal pain. Patient states the pain started all of a sudden and is severe. Patient's physical examination as well as her story is consistent with a possible kidney stone. Patient received a kidney stone work-up, also concerning for bowel obstruction, appendicitis. Patient's laboratory values showed a slight leukocytosis with a white blood count of 13.2, however I believe this is reactionary. Patient's chemistries were unremarkable lipase was negative. Patient's urinalysis showed blood, 25 leukocyte Estrace, however no bacteria, no nitrites. There is no evidence to suspect any pyelonephritis. This will be sent for culture. Patient CT scan of the abdomen pelvis showed partially obstructing 3 mm distal right ureteral calculus. This is what is causing the patient's right flank pain that rates on the right lower abdominal pain. Patient was given IV fluids, IV morphine x2 as well as IV Toradol. Patient felt much better, she will follow-up outpatient. She is instructed to return for any worsening back pain, fever chills nausea vomiting. I did give the discharge instructions well to the patient's mother and . They also given return precautions. Patient instructed to follow-up. <Dr. George Black, DO - Last Filed: 10/24/22 22:01> MDM MDM Narrative Medical decision making narrative: Interventions / MDM: Differential diagnosis: Kidney stones, shingles, cholecystitis Diagnosis considered but do not suspect: N/A My EKG interpretation: N/A Imaging independently reviewed and interpreted by myself: CT abdomen pelvis 3 mm distal ureteral stone also read by radiology External documents reviewed: N/A Test considered but not ordered:N/A ED course: Attending note: Patient seen and evaluated with signs cleaner. I perform my own [id number] evaluation. I agree with the plan of work-up. Worsening flank pain rating to the right upper quadrant started this morning worsening after eating. History of air bowel syndrome. No fevers. No urinary symptoms. Exam no rash in the flank region there is mild tenderness right upper quadrant. No guarding or rebound. Work-up abdominal labs White count 3.2 lipase normal liver enzymes mild elevated alk phos 121. Urine with blood. hCG negative. [address] scan confirms a 3 mm distal ureteral stone. She is treated for pain symptoms with improvement. Urine strainer for home urology follow-up. Prescription medication for symptom control. Return precautions. Re-evaluation: stable Disposition discussed with patient/family/significant other: Patient and significant other Case discussed with consulting clinician: N/A Lab Data Attestation: I reviewed the patient's lab results. Labs: Laboratory Results - last 24 hr 10/24/22 10/24/22 10/24/22 14:47 14:47 14:50 WBC 13.2 H RBC 4.33 Hgb 13.3 Hct 39.4 MCV 91.0 MCH 30.7 MCHC 33.8 RDW Std Deviation 40.3 RDW Coeff of [place]este 12.2 Plt Count 290 MPV 10.5 Immature Gran % (Auto) 0.300 Neut % (Auto) 60.3 Lymph % (Auto) 32.7 Cooke % (Auto) 5.7 Eos % (Auto) 0.8 Baso % (Auto) 0.2 Absolute Neuts (auto) 7.9 H Absolute Lymphs (auto) 4.31 Nucleated RBC % 0 Sodium 140 Potassium 3.8 Chloride 105 Carbon Dioxide 27.0 Anion Gap 8 BUN 10 Creatinine 0.75 Estim Creat Clear Calc 109.21 Est GFR (MDRD) Af Amer 123 Est GFR (MDRD) Non-Af 102 BUN/Creatinine Ratio 13.4 Glucose 98 Calcium 9.5 Total Bilirubin 0.20 AST 14 L ALT 26 Alkaline Phosphatase 121 H Total Protein 7.6 Albumin 3.5 Globulin 4.1 Albumin/Globulin Ratio 0.9 Lipase 129 Urine Color Yellow Urine Clarity Sl. Cloudy Urine pH 6.5 Ur Specific [place] 1.020 Urine Protein 30 H Urine Glucose (UA) Normal Urine Ketones 5 H Urine Occult Blood 250 H Urine Nitrite Negative Urine Bilirubin Negative Urine Urobilinogen Normal Ur Leukocyte Esterase 25 H Urine RBC 25-50 SEEN Urine WBC 0-5 SEEN Ur Squamous Epith Cells 0-5 SEEN Urine Bacteria 0 SEEN Urine Mucus 0 SEEN Urine Test Negative Radiography Diagnostic Testing: Clinical Impression(s) from Imaging Studies Abdomen/Pelvis CT 10/24/22 14:39 IMPRESSION: Partially obstructing 3 mm distal right ureteral calculus. Electronically Signed: Luis Cortes MD at 16:06 EST , Discharge Plan Triage Chief Complaint: Flank Pain ED Midlevel Provider: Alexi Alexander ED Provider: George Black Dx/Rx/DC Orders Clinical Impression: Kidney calculi Instructions: ED Kidney Stone w/ Colic Prescriptions: New ondansetron 4 mg tablet,disintegrating 4 mg PO Q8H PRN PRN (Reason: Nausea) Qty: 10 0RF oxycodone-acetaminophen [Percocet] 5-325 mg tablet 1 tab PO Q8H PRN (Reason: pain) 3 Days Qty: 10 0RF No Action Liletta 20.1 mcg/24 hrs (6 yrs) 52 mg intrauterine device 1 device intrauterine ONCE Qty: 1 0RF Rx Instructions: as a single dose prednisone 10 mg tablet 10 mg PO DAILY PRN albuterol sulfate [ProAir HFA] 90 mcg/actuation HFA aerosol inhaler 1 - 2 puff inhalation Q6H PRN (Reason: shortness of breath or wheezing) Qty: 8.5 1RF hyoscyamine sulfate 0.125 mg tablet,disintegrating 0.125 mg PO BID-QID PRN (Reason: dyspepsia) Qty: 30 0RF celecoxib 200 mg capsule 200 mg PO DAILY ondansetron [ondansetron] 4 MG tablet 4 mg PO Q6H PRN PRN (Reason: Nausea) Qty: 15 0RF magnesium citrate Solution 300 ml PO X1 Qty: 2 0RF Rx Instructions: May repeat in 12 hours if no bowel movement alosetron 0.5 mg tablet 0.5 mg PO DAILY Qty: 90 3RF Primary Care Provider: Antonio Templeton Referrals: Antonio Templeton MD [Primary Care Provider] - Arthur Jung MD [Med Staff - Active Staff] - Activity Restrictions/Additional Instructions: Return for any worsening back pain, fever chills nausea or vomiting. Disposition Disposition: Home, Self Care Discharge Date/Time: 10/24/22 17:32
[2022-10-24] MEDS: Morphine 4 MG/ML Syringe IV ×2 (14:48→16:23)
[2022-10-24] MEDS: Ondansetron 4 MG/2 ML Vial IV (14:48)
[2022-10-24] MEDS: 0.9% Normal Saline 1,000 ML 1000 ML IV (14:51)
[2022-10-24 14:52] LABS: Absolute Lymphocyte Count 4.31 X10^3/uL (0.83-4.51); Absolute Neutrophil Count 7.9 X10^3/uL (2.0-7.7); Basophil# 0.03 X10^3/uL; Basophil% 0.2 % (0-1); Eosinophils% 0.8 % (0-5); Hematocrit 39.4 % (37-47); Hemoglobin 13.3 g/dL (12.0-15.0); Lymphocyte # 4.31 X10^3/ul (0.83-4.51); Lymphocyte % 32.7 % (19-41); Mean Corp Hgb Conc 33.8 g/dL (32-36); Mean Corpuscular Hgb 30.7 pg (27.0-32.0); Mean Platelet Vol. 10.5 fl (6.2-12.0); Monocyte# 0.75 X10^3/uL; Monocyte% 5.7 % (0-10); NRBC Flagged by Analyzer 0 % (0-5); Neutrophil # 7.94 X10^3/uL (2.7-7.7); Neutrophil % 60.3 % (47-70); Platelet Count 290 K/mm3 (150-450); RBC Distribution Width CV 12.2 % (11.6-14.6); RBC Distribution Width SD 40.3 fl (35.1-43.9); Red Blood Count 4.33 M/mm3 (4.2-5.4); White Blood Count 13.2 K/mm3 (4.4-11.0)
[2022-10-24 14:54] LABS: Bacteria 0 SEEN /hpf (None Seen); Mucous, Urine 0 SEEN /hpf (<or=2+)
[2022-10-24 14:56] LABS: Color, Urine Yellow (Yellow); Glucose, Dipstick Normal (Normal); Ketone-Dipstick 5 mg/dl (Negative); Leukocyte Esterase-Dipstick 25 /ul (Negative); Nitrite-Dipstick Negative (Negative); Occult Blood-Urine 250 /ul (Negative); Protein-Dipstick 30 mg/dl (Negative); Urine Bilirubin Dipstick Negative (Negative); Urine Clarity Sl. Cloudy (Clear); Urine Urobilinogen Normal (Normal); Urine pH 6.5 (5.0 - 8.0)
[2022-10-24 15:09] LABS: ALB/GLOB Ratio 0.9 RATIO (0.9-2.4); AST(SGOT) 14 U/L (15-37); Alanine Aminotransfer ALT/SGPT 26 U/L (13-56); Albumin, Serum 3.5 g/dL (3.2-5.0); Alkaline Phosphatase 121 U/L (45-117); Anion Gap 8 (5-15); BUN 10 mg/dL (7-18); BUN/Creat Ratio 13.4 RATIO (10-20); Calcium,Total 9.5 mg/dL (8.5-10.1); Chloride 105 mmol/L (98-107); Creatinine, Serum 0.75 mg/dL (0.55-1.02); EST Glomerular Filtration Rate 102 mL/min (>60); Est Glom Filt Rate - Afr Amer 123 mL/min (>60); Estimated Creatinine Clearance 109.21 ml/min; Globulin 4.1 g/dL (2.2-4.2); Glucose 98 mg/dL (74-106); Lipase 129 U/L (73-393); Potassium 3.8 mmol/L (3.5-5.1); Protein, Total 7.6 g/dL (6.4-8.2); Sodium Level 140 mmol/L (136-145)
[2022-10-24 15:12] LABS: Red Blood Cells-Urine 25-50 SEEN /hpf (0-5); Squamous Epithelial Cells - UA 0-5 SEEN /hpf (5-10); White Blood Cells 0-5 SEEN /hpf (0-5)
[2022-10-24 15:19] LABS: Internal QC Validated? YES +Cl - CLEAR BKGD; Pregnancy, Urine Negative Negative
--- NOTE | 2022-10-24 15:35 | ED.RN ---
patient concerned for potential adverse reaction with Toradol as she was advised she cannot have NSAIDS &/or ibuprofen; therefore she refused additional pain medication at time. RAYSHAWN Truong, advised.
[2022-10-24] MEDS: Ketorolac 15 MG/ML Vial IV (16:46)
[2022-10-24 17:30] VITALS: BP 132/70; PULSE 88; RESP 15; TEMP 36.8; O2SAT 97
== END 2022-10-24 17:32 | disposition home or self-care (01) ==
PROVIDERS: Nurse Practitioner; Emergency Provider Emergency Medicine; PCP Family Medicine; Visit Provider Emergency Medicine
DX: N20.2 Calculus of kidney with calculus of ureter (principal)
CPT/HCPCS: 74176; 80053; 81001; 81025; 83690; 85025; 96361; 96374; 96375; 96376; 99283; A4216; J2405

== ENCOUNTER → 2022-11-17 | Outpatient (CLI) | payer OTHER, SELFPAY ==
[2022-11-23 22:18] LABS: HPV Reflexed? NOT INDICATED
== END | disposition home or self-care (01) ==
LOC: LABSPEC 10:34
PROVIDERS: PCP Family Medicine; Visit Provider Obstetrics & Gynecology
DX: Z12.4 Encounter for screening for malignant neoplasm of cervix (principal)
CPT/HCPCS: 88175; G0145

== ENCOUNTER 2022-12-14 22:09 | Emergency (ER) | payer OTHER, SELFPAY ==
[2022-12-14 22:10] VITALS: BP 139/101; PULSE 99; RESP 18; TEMP 36.1; O2SAT 97; BMI 40.1
--- NOTE | 2022-12-14 23:42 | EDS_ITS ---
HPI History of Present Illness Chief Complaint: Occup Expose Narrative Narrative: Patient is a 22-year-old female with past medical history of IBS and iron deficiency anemia. 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 She states when she was doing this somehow the needle poked through the And struck her in the right thumb. Secondary to the needle exposure patient was sent to the hospital for further evaluation [facility] Medical History Contact with and (suspected) exposure to other viral communicable diseases IBS (irritable bowel syndrome) Iron deficiency URI (upper respiratory infection) Vertigo Home Medications levonorgestrel 20.4 mcg/24 hrs (8 yrs) 52 mg intrauterine device (Liletta) 1 device intrauterine ONCE #1 ea 06/25/20 [Rx Last Taken Unknown] albuterol sulfate 90 mcg/actuation aerosol inhaler (ProAir HFA) 1 - 2 puff inhalation Q6H PRN shortness of breath or wheezing #8.5 grams 03/01/21 [Rx Last Taken Unknown] prednisone 10 mg tablet 10 mg PO DAILY PRN 05/13/21 [History Last Taken Unknown] hyoscyamine sulfate 0.125 mg disintegrating tablet 0.125 mg PO BID-QID PRN dyspepsia #30 tabs 11/19/21 [Rx Last Taken Unknown] ondansetron 4 mg disintegrating tablet 4 mg PO Q8H PRN PRN Nausea #10 tabs 10/24/22 [Rx Last Taken Unknown] oxycodone-acetaminophen 5 mg-325 mg tablet (Percocet) 1 tab PO Q8H PRN pain 3 days #10 tabs 10/24/22 [Rx Last Taken Unknown] ascorbic acid (vitamin C) 500 mg capsule 500 mg PO BID 11/08/22 [History Last Taken Unknown] celecoxib 200 mg capsule 200 mg PO BID 11/08/22 [History Last Taken Unknown] ferrous sulfate 325 mg (65 mg iron) tablet 325 mg PO DAILY 11/08/22 [History Last Taken Unknown] multivitamin 1 tab PO DAILY 11/08/22 [History Last Taken Unknown] Allergy/AdvReac Type Severity Reaction Status Date / Time amoxicillin [From Augmentin] Allergy Other Verified 12/14/22 22:09 clavulanic acid Allergy Other Verified 12/14/22 22:09 [From Augmentin] Social History (Updated 11/17/22 @ 08:41 by Paula Shaw) number of children: 0 current occupational status: employed Smoking Status: Never smoker alcohol intake: current alcohol intake frequency: a few times a week substance use type: does not use diet: vegetarian seatbelt use: always do you feel safe at home: Yes additional social history: Works at [employer] ROS ROS ED Constitutional Constitutional ED: Denies chills or fever(s) ENT ENT ED: Denies sore throat Cardiovascular Cardiovascular: Denies chest pain Respiratory/Chest Respiratory/Chest: Denies cough or dyspnea Gastrointestinal Gastrointestinal: Denies abdominal pain, diarrhea, nausea or vomiting Genitourinary Genitourinary ED: Denies dysuria Musculoskeletal Musculoskeletal: Denies myalgias Integumentary Reports other Details: Positive puncture wound right thumb ; Denies rash Neurologic Neurologic: Denies headache(s) Hematologic/Lymphatic Hematologic/Lymphatic: Denies easy bleeding or easy bruising EXAM Physical Exam Const Vital Signs: 12/14/22 22:10 Temperature 96.9 F L Temperature Source Temporal Pulse Rate 99 Respiratory Rate 18 Blood Pressure 139/101 H Blood Pressure Mean 113 Pulse Ox 97 Oxygen Delivery Method Room Air Positive well nourished and well developed General Appearance ED: well developed Eyes PERRL and EOMs intact bilaterally Neck supple Resp normal respiratory effort and clear to auscultation bilaterally Cardio regular rate and regular rhythm Extremity Extremity Narrative: Patient has a pinpoint puncture wound to the volar aspect of the right distal thumb. There is no foreign body or active bleeding. No surrounding erythema or warmth or lymphangitic streaking. No obvious felon or paronychia noted. Remainder the exam is normal Neuro oriented x3 and CN's II-XII intact bilaterally Sensorium / Orientation: alert Psych mental status grossly normal Skin Skin Narrative: Puncture wound to the right thumb as documented above MDM MDM MDM Narrative Medical decision making narrative: Patient presented to the ER shortly after a needlestick exposure to her right thumb. Risk for transmission is low secondary to the small nature and depth of the needle poke. However because of possible blood-borne pathogen exposure and transmission patient underwent basic laboratory testing for occupational exposu re. However at this time as my concern for transmission is low there is no need to start her on antivirals or HIV treatment. The patient was informed of this decision based on the exposure and risk of harriet a illness and she is agreeable to the plan of care. Therefore as the basic blood-borne pathogen exposures have been obtained and patient has no signs of foreign body or active hemorrhage or secondary infection she is otherwise safe for discharge History & Record Review Discussion w/independent historian: Patient Discharge Plan Triage Chief Complaint: Occup Expose ED Provider: Ac Cabrera Dx/Rx/DC Orders Clinical Impression: Accidental needlestick injury with exposure to body fluid Prescriptions: No Action Liletta 20.1 mcg/24 hrs (6 yrs) 52 mg intrauterine device 1 device intrauterine ONCE Qty: 1 0RF Rx Instructions: as a single dose prednisone 10 mg tablet 10 mg PO DAILY PRN albuterol sulfate [ProAir HFA] 90 mcg/actuation HFA aerosol inhaler 1 - 2 puff inhalation Q6H PRN (Reason: shortness of breath or wheezing) Qty: 8.5 1RF hyoscyamine sulfate 0.125 mg tablet,disintegrating 0.125 mg PO BID-QID PRN (Reason: dyspepsia) Qty: 30 0RF celecoxib 200 mg capsule 200 mg PO BID ascorbic acid (vitamin C) 500 mg capsule 500 mg PO BID ferrous sulfate 325 mg (65 mg iron) tablet 325 mg PO DAILY multivitamin Tablet 1 tab PO DAILY ondansetron 4 mg tablet,disintegrating 4 mg PO Q8H PRN PRN (Reason: Nausea) Qty: 10 0RF oxycodone-acetaminophen [Percocet] 5-325 mg tablet 1 tab PO Q8H PRN (Reason: pain) 3 Days Qty: 10 0RF Primary Care Provider: Antonio Templeton Referrals: Antonio Templeton MD [Primary Care Provider] - Disposition Disposition: Home, Self Care Discharge Date/Time: 12/15/22 00:07
[2022-12-14 23:57] LABS: HIV - WCH Non-Reactive (Nonreactive); Hepatitis B Surface Antibody Reactive; Hepatitis B Surface Antigen Non-Reactive (Nonreactive); Hepatitis C Antibody Non-Reactive (Nonreactive)
== END 2022-12-15 00:07 | disposition home or self-care (01) ==
PROVIDERS: Emergency Provider Emergency Medicine; PCP Family Medicine; Visit Provider Emergency Medicine
DX: S69.91XA Unspecified injury of right wrist, hand and finger(s), initial encounter (principal); W46.0XXA Contact with hypodermic needle, initial encounter
CPT/HCPCS: 36415; 86703; 86706; 86803; 87340; 99282

== ENCOUNTER → 2023-02-01 | Outpatient (CLI) | payer OTHER, SELFPAY ==
[2023-02-01 12:20] LABS: Absolute Lymphocyte Count 3.75 X10^3/uL (0.83-4.51); Absolute Neutrophil Count 6.6 X10^3/uL (2.0-7.7); Basophil# 0.04 X10^3/uL; Basophil% 0.4 % (0-1); Eosinophil# 0.11 X10^3/uL; Hematocrit 41.8 % (37-47); Hemoglobin 13.3 g/dL (12.0-15.0); Lymphocyte # 3.75 X10^3/ul (0.83-4.51); Lymphocyte % 34.1 % (19-41); Mean Corp Hgb Conc 31.8 g/dL (32-36); Mean Corpuscular Hgb 29.8 pg (27.0-32.0); Mean Corpuscular Volume 93.7 fL (81-99); Monocyte# 0.49 X10^3/uL; Monocyte% 4.5 % (0-10); NRBC Flagged by Analyzer 0 % (0-5); Neutrophil # 6.57 X10^3/uL (2.7-7.7); Neutrophil % 59.7 % (47-70); Platelet Count 305 K/mm3 (150-450); RBC Distribution Width CV 12.5 % (11.6-14.6); RBC Distribution Width SD 43.1 fl (35.1-43.9); Red Blood Count 4.46 M/mm3 (4.2-5.4)
[2023-02-01 12:59] LABS: ALB/GLOB Ratio 0.9 RATIO (0.9-2.4); AST(SGOT) 16 U/L (15-37); Alanine Aminotransfer ALT/SGPT 22 U/L (13-56); Albumin, Serum 3.6 g/dL (3.2-5.0); Alkaline Phosphatase 119 U/L (45-117); Anion Gap 5 (5-15); BUN 11 mg/dL (7-18); BUN/Creat Ratio 15.9 RATIO (10-20); Chloride 108 mmol/L (98-107); Creatinine, Serum 0.69 mg/dL (0.55-1.02); EST Glomerular Filtration Rate 111 mL/min (>60); Est Glom Filt Rate - Afr Amer 134 mL/min (>60); Ferritin 391 ng/mL (8-252); Globulin 4.2 g/dL (2.2-4.2); Glucose 90 mg/dL (74-106); Iron 76 ug/dL (50-170); Iron Binding Capacity,Total 310 ug/dL (250-450); PERCENT IRON SATURATION 24.5 % (15.0-55.0); Potassium 4.5 mmol/L (3.5-5.1); Protein, Total 7.8 g/dL (6.4-8.2); Sodium Level 138 mmol/L (136-145)
== END | disposition home or self-care (01) ==
LOC: LAB 11:34
PROVIDERS: PCP Family Medicine; Referring Provider Nurse Practitioner Adult Health; Visit Provider Nurse Practitioner Adult Health
DX: R10.13 Epigastric pain (principal); E61.1 Iron deficiency
CPT/HCPCS: 36415; 80053; 82728; 83540; 83550; 85025

== ENCOUNTER → 2023-08-02 | Outpatient (CLI) | payer OTHER, SELFPAY ==
[2023-08-02 12:09] LABS: Hematocrit 39.7 % (37-47); Hemoglobin 12.1 g/dL (12.0-15.0); Mean Corp Hgb Conc 30.5 g/dL (32-36); Mean Corpuscular Hgb 26.4 pg (27.0-32.0); Mean Corpuscular Volume 86.7 fL (81-99); Mean Platelet Vol. 11.7 fl (6.2-12.0); Platelet Count 330 K/mm3 (150-450); RBC Distribution Width CV 14.1 % (11.6-14.6); Red Blood Count 4.58 M/mm3 (4.2-5.4); White Blood Count 10.7 K/mm3 (4.4-11.0)
[2023-08-02 12:49] LABS: Vitamin B12 251 pg/mL (211-911)
[2023-08-02 13:23] LABS: ALB/GLOB Ratio 0.7 RATIO (0.9-2.4); AST(SGOT) 11 U/L (15-37); Alanine Aminotransfer ALT/SGPT 19 U/L (13-56); Albumin, Serum 3.1 g/dL (3.2-5.0); Alkaline Phosphatase 80 U/L (45-117); Anion Gap 6 (5-15); BUN 10 mg/dL (7-18); BUN/Creat Ratio 14.1 RATIO (10-20); Calcium,Total 8.9 mg/dL (8.5-10.1); Chloride 108 mmol/L (98-107); Creatinine, Serum 0.71 mg/dL (0.55-1.02); EST Glomerular Filtration Rate 108 mL/min (>60); Est Glom Filt Rate - Afr Amer 130 mL/min (>60); Ferritin 256 ng/mL (8-252); Globulin 4.5 g/dL (2.2-4.2); Glucose 86 mg/dL (74-106); Protein, Total 7.6 g/dL (6.4-8.2); Sodium Level 136 mmol/L (136-145); Thyroid Stim Hormone (TSH) 2.05 uIU/mL (0.358-3.74)
[2023-08-02 13:30] LABS: Hemoglobin A1c 5.2 % (3.8-5.6)
[2023-08-03 04:07] LABS: Fructosamine 210 umol/L (0-285)
== END | disposition home or self-care (01) ==
LOC: MFPLAB 10:25
PROVIDERS: PCP Family Medicine; Visit Provider Family Medicine
DX: N92.0 Excessive and frequent menstruation with regular cycle (principal); D64.9 Anemia, unspecified; E16.2 Hypoglycemia, unspecified; L83 Acanthosis nigricans; R42 Dizziness and giddiness
CPT/HCPCS: 36415; 80053; 82607; 82728; 82746; 82985; 83036; 84443; 85027

== ENCOUNTER → 2023-09-12 | Outpatient (CLI) | payer OTHER, SELFPAY ==
[2023-09-12 16:06] LABS: Bacteria 0 SEEN /hpf (None Seen); Mucous, Urine 0 SEEN /hpf (<or=2+); White Blood Cells 0 SEEN /hpf (0-5)
[2023-09-12 17:31] LABS: Color, Urine Yellow (Yellow); Glucose, Dipstick Normal (Normal); Ketone-Dipstick 5 mg/dl (Negative); Leukocyte Esterase-Dipstick Negative /ul (Negative); Nitrite-Dipstick Negative (Negative); Occult Blood-Urine 25 /ul (Negative); Protein-Dipstick 15 mg/dl (Negative); Urine Bilirubin Dipstick Negative (Negative); Urine Urobilinogen Normal (Normal)
[2023-09-12 17:38] LABS: Urine Clarity Sl. Cloudy (Clear)
[2023-09-12 17:39] LABS: Absolute Lymphocyte Count 4.15 X10^3/uL (0.83-4.51); Absolute Neutrophil Count 11.5 X10^3/uL (2.0-7.7); Basophil# 0.05 X10^3/uL; Basophil% 0.3 % (0-1); Eosinophils% 0.6 % (0-5); Hematocrit 41.2 % (37-47); Hemoglobin 12.7 g/dL (12.0-15.0); Lymphocyte # 4.15 X10^3/ul (0.83-4.51); Lymphocyte % 25.1 % (19-41); Mean Corp Hgb Conc 30.8 g/dL (32-36); Mean Corpuscular Hgb 26.7 pg (27.0-32.0); Mean Corpuscular Volume 86.6 fL (81-99); Mean Platelet Vol. 11.7 fl (6.2-12.0); Monocyte# 0.68 X10^3/uL; Monocyte% 4.1 % (0-10); NRBC Flagged by Analyzer 0 % (0-5); Neutrophil # 11.53 X10^3/uL (2.7-7.7); Neutrophil % 69.6 % (47-70); Platelet Count 343 K/mm3 (150-450); RBC Distribution Width CV 13.6 % (11.6-14.6); RBC Distribution Width SD 43.4 fl (35.1-43.9); Red Blood Count 4.76 M/mm3 (4.2-5.4); White Blood Count 16.6 K/mm3 (4.4-11.0)
[2023-09-12 17:55] LABS: Amorphous Sediment 1+ URATE; Red Blood Cells-Urine 0-5 SEEN /hpf (0-5); Squamous Epithelial Cells - UA 0-5 SEEN /hpf (5-10)
[2023-09-12 18:17] LABS: ALB/GLOB Ratio 0.8 RATIO (0.9-2.4); AST(SGOT) 18 U/L (15-37); Alanine Aminotransfer ALT/SGPT 21 U/L (13-56); Albumin, Serum 3.6 g/dL (3.2-5.0); Alkaline Phosphatase 87 U/L (45-117); Anion Gap 8 (5-15); BUN 13 mg/dL (7-18); BUN/Creat Ratio 13.3 RATIO (10-20); Calcium,Total 9.5 mg/dL (8.5-10.1); Chloride 106 mmol/L (98-107); Creatinine, Serum 0.98 mg/dL (0.55-1.02); EST Glomerular Filtration Rate 74 mL/min (>60); Est Glom Filt Rate - Afr Amer 90 mL/min (>60); Globulin 4.7 g/dL (2.2-4.2); Glucose 89 mg/dL (74-106); Protein, Total 8.3 g/dL (6.4-8.2); Sodium Level 138 mmol/L (136-145)
== END | disposition home or self-care (01) ==
LOC: MFPLAB 16:05
PROVIDERS: PCP Family Medicine; Visit Provider Family Medicine
DX: R10.9 Unspecified abdominal pain (principal)
CPT/HCPCS: 36415; 80053; 81001; 85025; 87086; 87088

== ENCOUNTER 2023-11-01 01:36 | Emergency (ER) | payer OTHER, SELFPAY ==
[2023-11-01 01:38] VITALS: BP 131/90; PULSE 100; RESP 18; TEMP 36.3; O2SAT 99; BMI 40.6
[2023-11-01 02:45] LABS: Mucous, Urine 0 SEEN /hpf (<or=2+); Red Blood Cells-Urine 0 SEEN /hpf (0-5); Squamous Epithelial Cells - UA 0 SEEN /hpf (5-10)
[2023-11-01 02:58] LABS: Glucose, Dipstick Normal (Normal); Ketone-Dipstick Negative (Negative); Leukocyte Esterase-Dipstick 25 /ul (Negative); Nitrite-Dipstick Negative (Negative); Occult Blood-Urine Negative /ul (Negative); Protein-Dipstick 15 mg/dl (Negative); Specific Gravity, Urine 1.015 (1.002-1.030); Urine Bilirubin Dipstick Negative (Negative); Urine Urobilinogen Normal (Normal)
[2023-11-01 02:59] LABS: Color, Urine Yellow (Yellow); Urine Clarity Clear (Clear)
[2023-11-01 03:02] LABS: Internal QC Validated? YES +Cl - CLEAR BKGD; Pregnancy, Serum, hCG Quali. NEGATIVE Negative
[2023-11-01 03:03] LABS: Bacteria 3+ /hpf (None Seen); Transitional Epithelial - Ur 10-25 SEEN /hpf (0-5); White Blood Cells 5-10 SEEN /hpf (0-5)
--- NOTE | 2023-11-01 03:27 | CT_ITS ---
INDICATION: Left flank pain COMPARISON: 10/24/[address] A radiation dose optimization technique was used for this scan. RADIATION DOSAGE (If Supplied By Facility): CTDIvol/DLP = ( 22.87 ) / ( 1228.39 ) mGy/mGycm FINDINGS: Noncontrast serial CT axial images through the abdomen and pelvis with coronal and sagittal reformatted series. PANCREAS: No peripancreatic fat stranding. BOWEL/MESENTERY: No dilated bowel loops. No significant free fluid. No free air. GALLBLADDER: No pericholecystic fat stranding. LIVER/STOMACH: Hepatomegaly measuring over 21 cm in the craniocaudal dimension. APPENDIX: Normal caliber gas containing appendix. URINARY COLLECTING SYSTEM/ KIDNEYS: 4 mm left distal ureter obstructing calculus. Associated mild left hydroureteronephrosis. No significant renal parenchymal abnormality. LUNG BASES: Unremarkable. BONES: Unremarkable for age. CT/Abdomen/Pelvis without Cont IMPRESSION: 4 mm left distal ureter obstructing calculus. Hepatomegaly. UTERUS/ADNEXA: SPLEEN: ABDOMINAL WALL: LYMPH NODE: AORTA/GREAT VESSELS: ADRENALS: Electronically Signed: Florentino Allison MD at 4:36 EST ,
--- NOTE | 2023-11-01 03:28 | EX.ED.DYSGE1 ---
HPI History of Present Illness Chief Complaint: Flank Pain Informant: patient Onset/Context/Timing Onset: Days (3) Context: Gradual Onset Timing: Continuous Quality: Sharp, cramping, burning Location: Left flank and left lower abdomen Worsened by: At rest Relieved by: Ambulating Narrative Narrative: Patient presents with possible kidney stone that has been getting worse over the past 3 days. Patient states she has been having pain in her left flank. Patient describes it as sharp, cramping, and burning. Patient states the pain radiates into her left lower abdomen. Patient states it is better when she is up and ambulating. Patient states it is worse when she is trying to rest. Patient admits to some nausea but denies any vomiting. Patient denies any dysuria, frequency, or hematuria. Patient states she has had kidney stones in the past and states this feels similar. Prior similar symptoms: Yes PFSH [facility] Medical History Accidental puncture and laceration of skin and subcutaneous tissue during a dermatologic procedure Contact with and (suspected) exposure to other viral communicable diseases IBS (irritable bowel syndrome) Iron deficiency URI (upper respiratory infection) Vertigo Home Medications hyoscyamine sulfate 0.125 mg disintegrating tablet 0.125 mg PO BID-QID PRN dyspepsia #30 tabs 11/19/21 [Rx Last Taken Unknown] ascorbic acid (vitamin C) 500 mg capsule 500 mg PO BID 11/08/22 [History Last Taken Unknown] celecoxib 200 mg capsule 200 mg PO BID 11/08/22 [History Last Taken Unknown] ferrous sulfate 325 mg (65 mg iron) tablet 325 mg PO DAILY 11/08/22 [History Last Taken Unknown] multivitamin 1 tab PO DAILY 11/08/22 [History Last Taken Unknown] pantoprazole 40 mg tablet,delayed release 40 mg PO QAM #90 tabs 02/01/23 [Rx Last Taken Unknown] norgestimate 0.25 mg-ethinyl estradiol 35 mcg tablet (Sprintec (28)) 1 tab PO DAILY #84 tabs 04/21/23 [Rx Last Taken Unknown] tamsulosin 0.4 mg capsule 0.4 mg PO Q24H PRN KID STON 09/05/23 [History Last Taken Unknown] vitamin B complex (Vitamins B Complex capsule) 1 cap PO DAILY 09/05/23 [History Last Taken Unknown] ciprofloxacin HCl 500 mg tablet 500 mg PO BID #14 TABLETS 11/01/23 [Rx Last Taken Unknown] hydrocodone-acetaminophen 5-325mg 5mg-325mg 1 tab PO Q6H PRN PRN Pain 3 days #10 TABLETS 11/01/23 [Rx Last Taken Unknown] Allergy/AdvReac Type Severity Reaction Status Date / Time amoxicillin [From Augmentin] Allergy Other Verified 11/01/23 01:38 clavulanic acid Allergy Other Verified 11/01/23 01:38 [From Augmentin] Social History number of children: 0 current occupational status: employed Smoking Status: Never smoker alcohol intake: current alcohol intake frequency: a few times a week substance use type: does not use diet: vegetarian lorenoz/episcopalian: Jehovah Witness seatbelt use: always do you feel safe at home: Yes additional social history: Works at [employer] ROS ED Constitutional Constitutional ED: Denies chills or fever(s) Eyes Eyes: Denies blurry vision or change in vision ENT ENT ED: Denies rhinorrhea or sore throat Cardiovascular Cardiovascular: Denies chest pain or palpitations Respiratory/Chest Respiratory/Chest: Denies cough or dyspnea Gastrointestinal Gastrointestinal: Reports abdominal pain and nausea; Denies vomiting Genitourinary Genitourinary ED: Denies dysuria or hematuria Musculoskeletal Musculoskeletal: Reports back pain; Denies neck pain Integumentary Denies abscess or rash Neurologic Neurologic: Denies headache(s) or weakness Allergic/Immunologic Allergic/Immunologic ED: Denies mouth swelling or urticaria EXAM Physical Exam Const Vital Signs: 11/01/23 01:38 Temperature 97.3 F L Temperature Source Temporal Pulse Rate 100 Respiratory Rate 18 Blood Pressure 131/90 H Blood Pressure Mean 103 Pulse Ox 99 Oxygen Delivery Method Room Air Positive well nourished, well developed and obese General Appearance ED: well developed and NAD Nutritional Appearance: obese HEENT Reports moist mucous membranes Neck supple and no JVD Resp normal respiratory effort and clear to auscultation bilaterally Cardio regular rate and regular rhythm GI non-distended Palpation: soft and tender LLQ Back/Spine General Back: CVA tenderness left Neuro oriented x3, CN's II-XII intact bilaterally and no sensory deficits noted Sensorium / Orientation: alert Motor Exam: strength 5/5 throughout MDM MDM MDM Narrative Medical decision making narrative: Differential diagnosis includes ureteral calculus, pyelonephritis, urinary tract infection, diverticulitis, ovarian cyst, ectopic , and gastroenteritis. CBC will be obtained to assess for leukocytosis and anemia. Basic metabolic profile will be obtained to assess for electrolyte abnormality and renal function. Serum hCG will be obtained to assess for . Urinalysis will be obtained to assess for urinary tract infection and hematuria. CT scan of the abdomen pelvis will be obtained to assess for ureteral calculus, diverticulitis, and pyelonephritis. Lab Data Attestation: I reviewed the patient's lab results. Lab results narrative: Urinalysis was reviewed. Leukocyte esterase was 25 with 5-10 white blood cells and 3+ bacteria. There were also 10-25 transitional epithelial cells. CBC was reviewed. There is a mild leukocytosis of 13.6. The remainder was essentially within normal limits. Basic metabolic profile was reviewed. Creatinine was slightly elevated at 1.10. This is consistent with prior results. Serum hCG was reviewed and was negative. Labs: Laboratory Results - last 24 hr 11/01/23 02:10 WBC 13.6 H RBC 4.32 Hgb 11.6 L Hct 37.1 MCV 85.9 MCH 26.9 L MCHC 31.3 L RDW Std Deviation 41.6 RDW Coeff of Celeste 13.3 Plt Count 311 MPV 11.9 Immature Gran % (Auto) 0.200 Neut % (Auto) 56.8 Lymph % (Auto) 36.8 [place] % (Auto) 4.6 Eos % (Auto) 1.3 Baso % (Auto) 0.3 Absolute Neuts (auto) 7.7 Absolute Lymphs (auto) 4.99 H Nucleated RBC % 0 Sodium 141 Potassium 3.8 Chloride 109 H Carbon Dioxide 25.0 Anion Gap 7 BUN 11 Creatinine 1.10 H Estim Creat Clear Calc 101.26 Est GFR (MDRD) Af Amer 78 Est GFR (MDRD) Non-Af 65 BUN/Creatinine Ratio 10.0 Glucose 93 Calcium 8.9 Serum , Qual NEGATIVE Urine Color Yellow Urine Clarity Clear Urine pH 6.0 Ur Specific [place] 1.015 Urine Protein 15 H Urine Glucose (UA) Normal Urine Ketones Negative Urine Occult Blood Negative Urine Nitrite Negative Urine Bilirubin Negative Urine Urobilinogen Normal Ur Leukocyte Esterase 25 H Urine RBC 0 SEEN Urine WBC 5-10 SEEN Ur Squamous Epith Cells 0 SEEN Ur Transition Epith Cell 10-25 SEEN Urine Bacteria 3+ Urine Mucus 0 SEEN Radiography Diagnostic Testing: Clinical Impression(s) from Imaging Studies Abdomen/Pelvis CT 11/01/23 03:27 IMPRESSION: 4 mm left distal ureter obstructing calculus. Hepatomegaly. UTERUS/ADNEXA: SPLEEN: ABDOMINAL WALL: LYMPH NODE: AORTA/GREAT VESSELS: ADRENALS: Electronically Signed: Florentino Allison MD at 4:36 EST , CT scan of the abdomen pelvis was obtained. There is a 4 mm calculus in the left distal ureter. There is no other acute abnormality noted. This was interpreted by the radiologist was also independently reviewed by myself. Treatment and Re-Evaluation :: Patient was given IV fluids, Zofran, and Toradol. Patient was advised of her findings. Urine culture was ordered. It is questionable whether the bacteria in the urine is contaminant versus urinary tract infection. Patient will be covered with antibiotics. Patient states she has seen Dr. Stormy Carreon in the past for urology. Patient will be instructed to follow-up with her in 5 to 7 days. Patient was given a prescription for [place]. Patient understood and was agreeable with the plan. All questions were answered. Discharge Plan Triage Chief Complaint: Flank Pain ED Provider: Antonio Ramirez Dx/Rx/DC Orders Clinical Impression: Acute left flank pain, Calculus of distal left ureter Instructions: ED Kidney Stone with Pain Prescriptions: New hydrocodone-acetaminophen [hydrocodone-acetaminophen] 5-325 mg tablet 1 tab PO Q6H PRN PRN (Reason: Pain) 3 Days Qty: 10 0RF ciprofloxacin HCl [ciprofloxacin HCl] 500 mg tablet 500 mg PO BID Qty: 14 0RF No Action hyoscyamine sulfate 0.125 mg tablet,disintegrating 0.125 mg PO BID-QID PRN (Reason: dyspepsia) Qty: 30 0RF celecoxib 200 mg capsule 200 mg PO BID ascorbic acid (vitamin C) 500 mg capsule 500 mg PO BID ferrous sulfate 325 mg (65 mg iron) tablet 325 mg PO DAILY multivitamin Tablet 1 tab PO DAILY pantoprazole 40 mg tablet,delayed release (DR/EC) 40 mg PO QAM Qty: 90 1RF tamsulosin 0.4 mg capsule 0.4 mg PO Q24H PRN (Reason: KID STON) Patient Comments: TAKE 1 CAPSULE BY MOUTH DAILY TO TWICE DAILY TO PASS KIDNEY STONE vitamin B complex [Vitamins B Complex] Capsule 1 cap PO DAILY norgestimate-ethinyl estradiol [Sprintec (28)] 0.25-35 mg-mcg tablet 1 tab PO DAILY Qty: 84 4RF Rx Instructions: take active pills only Primary Care Provider: Antonio Templeton Referrals: Antonio Templeton MD [Primary Care Provider] - Stormy Carreon MD [Med Staff - Active Staff] - 3-5 Days Disposition Disposition: Home, Self Care
[2023-11-01 03:34] LABS: Absolute Lymphocyte Count 4.99 X10^3/uL (0.83-4.51); Absolute Neutrophil Count 7.7 X10^3/uL (2.0-7.7); Basophil# 0.04 X10^3/uL; Basophil% 0.3 % (0-1); Eosinophil# 0.18 X10^3/uL; Eosinophils% 1.3 % (0-5); Hematocrit 37.1 % (37-47); Hemoglobin 11.6 g/dL (12.0-15.0); Lymphocyte # 4.99 X10^3/ul (0.83-4.51); Lymphocyte % 36.8 % (19-41); Mean Corp Hgb Conc 31.3 g/dL (32-36); Mean Corpuscular Hgb 26.9 pg (27.0-32.0); Mean Corpuscular Volume 85.9 fL (81-99); Mean Platelet Vol. 11.9 fl (6.2-12.0); Monocyte# 0.63 X10^3/uL; Monocyte% 4.6 % (0-10); NRBC Flagged by Analyzer 0 % (0-5); Neutrophil # 7.68 X10^3/uL (2.7-7.7); Neutrophil % 56.8 % (47-70); Platelet Count 311 K/mm3 (150-450); RBC Distribution Width CV 13.3 % (11.6-14.6); RBC Distribution Width SD 41.6 fl (35.1-43.9); Red Blood Count 4.32 M/mm3 (4.2-5.4); White Blood Count 13.6 K/mm3 (4.4-11.0)
[2023-11-01] MEDS: 0.9% Normal Saline (1000mL) 1,000 ML 1000 ML IV (03:38)
[2023-11-01] MEDS: Ketorolac 30 MG/ML Syringe IV (03:38)
[2023-11-01] MEDS: Ondansetron 4 MG/2 ML Vial IV (03:39)
[2023-11-01 03:44] LABS: Anion Gap 7 (5-15); BUN 11 mg/dL (7-18); Calcium,Total 8.9 mg/dL (8.5-10.1); Chloride 109 mmol/L (98-107); EST Glomerular Filtration Rate 65 mL/min (>60); Est Glom Filt Rate - Afr Amer 78 mL/min (>60); Estimated Creatinine Clearance 101.26 ml/min; Glucose 93 mg/dL (74-106); Potassium 3.8 mmol/L (3.5-5.1); Sodium Level 141 mmol/L (136-145)
[2023-11-01] MEDS: Ciprofloxacin 500 MG Tablet PO (05:21)
[2023-11-01 05:29] VITALS: BP 138/90; PULSE 78; RESP 18; TEMP 36.7; O2SAT 97
== END 2023-11-01 05:30 | disposition home or self-care (01) ==
PROVIDERS: Emergency Provider Emergency Medicine; PCP Family Medicine; Visit Provider Emergency Medicine
DX: R10.9 Unspecified abdominal pain (principal); N20.1 Calculus of ureter; E66.9 Obesity, unspecified
CPT/HCPCS: 74176; 80048; 81001; 84703; 85025; 96361; 96374; 96375; 99282; J7030; A4216; J2405

== ENCOUNTER → 2023-12-16 | Outpatient (CLI) | payer OTHER, SELFPAY ==
[2023-12-16 11:01] LABS: Erythrocyte Sedimentation Rate 57 mm/hr (0-30)
[2023-12-16 11:07] LABS: PTHIN 68.6 pg/mL (18.4-80.1)
[2023-12-16 11:11] LABS: Prolactin 6.4 ng/mL
[2023-12-22 22:06] LABS: ACCA 17 units (0-90); ALCA 26 units (0-60); AMCA 13 units (0-100); Adrenocorticotropic Hormone 2.7 pg/mL (7.2-63.3); Albumin 3.6 g/dL (2.9-4.4); Alpha-1-Globulins 0.3 g/dL (0.0-0.4); Alpha-2-Globulins 1.2 g/dL (0.4-1.0); Angiotensin Convert Enzyme 37 U/L (14-82); Dopamine, Pl <30 pg/mL (0-48); Epinephrine, Pl <15 pg/mL (0-62); Gamma Globulin 0.9 g/dL (0.4-1.8); Gastrin, Serum 33 pg/mL (0-115); IgG, Quant 955 mg/dL (586-1602); Immunoglobulin A 154 mg/dL (87-352); Immunoglobulin G, Subclass 1 526 mg/dL (248-810); Immunoglobulin G, Subclass 2 377 mg/dL (130-555); Immunoglobulin G, Subclass 3 41 mg/dL (15-102); Immunoglobulin G, Subclass 4 25 mg/dL (2-96); Immunoglobulin M 186 mg/dL (26-217); Norepinephrine, Pl 204 pg/mL (0-874); PROEL- TOTAL PROTEIN 7.1 g/dL (6.0-8.5); gASCA 0 units (0-50)
== END | disposition home or self-care (01) ==
LOC: LAB 10:11
PROVIDERS: PCP Family Medicine; Referring Provider Internal Medicine Gastroenterology; Visit Provider Internal Medicine Gastroenterology
DX: R10.13 Epigastric pain (principal)
CPT/HCPCS: 36415; 82024; 82164; 82384; 82533; 82784; 82787; 82941; 83516; 83970; 84146; 84165; 84244; 85652; 86036; 86140; 86334; 86671

== ENCOUNTER → 2023-12-27 | Outpatient (CLI) | payer OTHER, SELFPAY ==
--- NOTE | 2023-12-27 16:36 | CT_ITS ---
STUDY: CT ABDOMEN AND PELVIS WITHOUT CONTRAST REASON FOR EXAM: Female, 23 years old. URETERAL STONE L. History of kidney stones. RADIATION DOSAGE (If Supplied By Facility): CTDIvol = ( 22.16 ) mGy, DLP = ( 1217.77 ) mGycm TECHNIQUE: Transaxial images were obtained from the dome of the diaphragm to the symphysis pubis without oral contrast, and without intravenous contrast. Sagittal and coronal images were reconstructed. Individualized dose optimization techniques were used for this CT. COMPARISON: Comparison is made with prior study dated November 01, 2023. FINDINGS: The visualized lung bases are unremarkable. The visualized portions of the heart are within normal limits. Stable hepatomegaly. Normal gallbladder and extrahepatic biliary system. Normal spleen. Normal pancreas. Normal bilateral adrenal glands. Punctate calculus is seen in the lower pole calyx of the right kidney. 2 mm calculus is seen in the anterior lower pole calyx of the right kidney as well. Mild degree of left hydronephrosis. There is a 4.6 mm calculus in the distal portion of the left ureter just proximal to the ureterovesical junction. This is essentially unchanged. Normal visualized stomach. Normal small intestine. Normal colon. The appendix is visualized and appears normal. Normal abdominal aorta. Normal inferior vena cava. Normal retroperitoneum. Normal urinary bladder. Normal abdominal wall. Normal osseous structures. CT/Abdomen/Pelvis without Cont IMPRESSION: Stable mild left hydronephrosis due to a 4.6 mm calculus in the distal portion of the left ureter. This is unchanged. Mild hepatomegaly. Electronically Signed: Eagle Storey MD at 8:57 EDT ,
== END | disposition home or self-care (01) ==
LOC: CT 16:35
PROVIDERS: PCP Family Medicine; Referring Provider Urology; Visit Provider Urology
DX: N20.1 Calculus of ureter (principal)
CPT/HCPCS: 74176

== ENCOUNTER 2024-01-05 11:22 | Day surgery (SDC) | payer OTHER, SELFPAY ==
[2024-01-05] VITALS (9 sets, daily range): BP systolic 112–140; BP diastolic 71–89; PULSE 86–105; RESP 14–18; TEMP 36.1–37.2; O2SAT 95–100; BMI 39.2
[2024-01-05 12:03] LABS: Internal QC Validated? YES +Cl - CLEAR BKGD
[2024-01-05 12:05] LABS: Pregnancy, Urine Negative Negative
[2024-01-05] MEDS: Lactated Ringers 1,000 ML 15 ML IV (12:16)
[2024-01-05] MEDS: Ciprofloxacin 400 MG/200 ML BAG 200 MG IV (12:41)
--- NOTE | 2024-01-05 12:49 | OP.PCM_ITS ---
Report of Operation Date of Procedure: 01/05/24 Pre-Operative Diagnosis: Left ureteral calculus Post-Operative Diagnosis: Same Surgery/Procedure Performed:: Cystoscopy, left ureteroscopy, laser lithotripsy, stone basket extraction, Surgeon: Stormy Carreon Type of Anesthesia: General Specimen's removed: Stone fragments Description of Procedure: The patient is a 23-year-old female with a left ureteral calculus that has not passed, and she now presents for surgical intervention. Informed consent was obtained. Grafts/Implants Used: 4.5 Dominican by 26 cm JJ stent Complications None Admit VTE Documentation VTE Present on Admission: Yes VTE Mechan Device Prophylaxis: SCD's VTE Pharm Prophylaxis ordered?: No Reason prophylaxis not ordered:: Treatment Not Indicated
--- NOTE | 2024-01-05 12:49 | PCM.OPRPT ---
Problems Associated Problem List Diagnoses (1) Ureteral stone: Report of Operation Date of Procedure: 01/05/24 Pre-Operative Diagnosis: Left ureteral calculus Post-Operative Diagnosis: Same Surgery/Procedure Performed:: Cystoscopy, left ureteroscopy, thulium laser lithotripsy, stone basket extraction, left ureteral stent insertion Surgeon: Stormy Carreon Type of Anesthesia: General Specimen's removed: Stone fragments Description of Procedure: The patient is a 23-year-old female with a left ureteral calculus that has not passed, and she now presents for surgical intervention. Informed consent was obtained. She was taken to the operating room and placed on the operating room table. Anesthesia monitored the head, neck, airway, IV access and vital signs throughout the case. Once anesthesia was appropriate ministered, she was placed into dorsolithotomy position was prepped and draped in usual sterile fashion. The cystoscope was inserted through the urethra under direct visualization into the urinary bladder. The bladder mucosa was visualized revealing no evidence of mass, erythema, ulceration or foreign body. The left ureteral orifice was intubated with a 0.035 Glidewire which advanced into the renal pelvis without difficulty. The stone was palpable in the distal ureter with the wire. At this time the semirigid ureteroscope was inserted with the help of a 0.025 Glidewire and advanced within the distal ureter to the area of the stone. The stone was then broken into multiple pieces using the thulium laser which were removed using a basket. Some fragments were sent for analysis. When all of the fragments were removed, the safety wire was used for placing a 4.5 x 26 cm JJ stent with good positioning in the renal pelvis as well as the urinary bladder. Her bladder was then emptied and the cystoscope was removed. She was awakened and taken to the recovery room in good condition. There were no complications during this procedure. Grafts/Implants Used: 4.5 Nepali by 26 cm JJ stent Complications None Admit VTE Documentation VTE Present on Admission: Yes VTE Mechan Device Prophylaxis: SCD's VTE Pharm Prophylaxis ordered?: No Reason prophylaxis not ordered:: Treatment Not Indicated
--- NOTE | 2024-01-05 12:55 | CALC_PTH ---
PATIENT: HILDA MORGAN LOC: [facility] [place] U#:[id number] AGE/SX: 23 ROOM: RE01/05/[address]: Dr. Stormy Carreon MD : 2000 BED: DIS: 01/05/2024 SPEC #: [id number] RECD: 01/05/24 13:56 STATUS: DAMI MELVIN #: [id number] WALE: 01/05/24 12:[address]: Stormy Carreon DEPT: SURGICAL PATHOLOGY RECD BY: Fish Mak ENTERED: 01/05/24 13:56 SP TYPE: Calculi OTHR DR: Dr. Antonio Templeton MD Tissues: CALCULI Procedures: Surgery Specimen Level I HEADER OPERATION: Cysto, left ureteroscopy laser lithotripsy, stone basket PRE-OP DIAGNOSIS: Ureteral stone, renal stone TISSUE SUBMITTED: Calculi GROSS DIAGNOSIS Fragments of this stone clinically left ureteral stone (gross only). COMMENT The calculus is submitted in its entirety for chemical stone analysis. The results from this study will be reported separately. GROSS DESCRIPTION Received without fixative labeled with the patient's name and designated left ureteral calculi. The specimen consists of multiple fragments of brown stone measuring in aggregate 0.5 x 0.3 x 0.1 cm. The entire specimen is submitted for stone analysis. Talisha 01/05/24 CPT: 18045
--- NOTE | 2024-01-05 13:45 | SUR.PHASEI ---
pt awake. drowsy.pt having intermittent abdominal spasms. will give ativan per anesthesia order.
--- NOTE | 2024-01-05 13:48 | DCINST_ITS ---
Discharge Instructions Diet Discharge Diet: No restrictions Activity Discharge Activity: Return to Normal Activity Dressing / Incision Call your doctor if you observe: Fever of 101 or Higher, Inability to urinate and Inability to have a bowel movement Follow Up Care Please Follow Up With: Stormy Carreon MD When: Next week for stent removal Test Results: Test results from this visit will be discussed in further detail at your follow- up appointment, if applicable. Discharge Plan Admission Attending Provider: Stormy Carreon Primary Care Provider: Antonio Templeton Discharge Orders/Prescriptions Prescriptions: New phenazopyridine [Pyridium] 200 mg tablet 200 mg PO TID PRN PRN (Reason: Bladder Spasms) 7 Days Qty: 30 0RF sulfamethoxazole-trimethoprim [sulfamethoxazole-trimethoprim] 800-160 mg tablet 1 tab PO BID 3 Days Qty: 6 0RF oxycodone-acetaminophen [Percocet] 5-325 mg tablet 1 tab PO Q8H PRN (Reason: pain) 3 Days Qty: 10 0RF Continued hyoscyamine sulfate 0.125 mg tablet,disintegrating 0.125 mg PO BID-QID PRN (Reason: dyspepsia) Qty: 30 0RF celecoxib 200 mg capsule 200 mg PO DAILY ascorbic acid (vitamin C) 500 mg capsule 500 mg PO BID multivitamin Tablet 1 tab PO DAILY pantoprazole 40 mg tablet,delayed release (DR/EC) 40 mg PO QAM Qty: 90 1RF tamsulosin 0.4 mg capsule 0.4 mg PO Q24H PRN (Reason: KID STON) Patient Comments: TAKE 1 CAPSULE BY MOUTH DAILY TO TWICE DAILY TO PASS KIDNEY STONE vitamin B complex [Vitamins B Complex] Capsule 1 cap PO DAILY hydrocodone-acetaminophen 5-325 mg tablet 1 tab PO Q6H PRN PRN (Reason: Pain) 3 Days Qty: 10 0RF ferrous sulfate 325 mg (65 mg iron) tablet 325 mg PO DAILY PRN (Reason: LOW IRON) meclizine 12.5 mg tablet 12.5 mg PO Q8H PRN PRN (Reason: dizziness) norgestimate-ethinyl estradiol [Sprintec (28)] 0.25-35 mg-mcg tablet 1 tab PO DAILY Qty: 84 4RF Rx Instructions: take active pills only Referrals / Follow Up: Antonio Templeton MD [Primary Care Provider] - Disposition Disposition (needs filled in before D/C Order can be placed): Home, Self Care
== END 2024-01-05 15:10 | disposition home or self-care (01) ==
LOC: SDC 11:24 → AC 11:27
PROVIDERS: PCP Family Medicine; Referring Provider Urology; Visit Provider Urology
PROC: 0TJ98ZZ Inspection of Ureter, Via Natural or Artificial Opening Endoscopic (ICD-10-PCS; CPT 52352; principal; 2024-01-05 12:45)
DX: N20.1 Calculus of ureter (principal); D50.9 Iron deficiency anemia, unspecified; Z79.899 Other long term (current) drug therapy
CPT/HCPCS: 52356; 76000; 81025; 82360; 88300; J7120; J0744; J2405

== ENCOUNTER → 2024-02-27 | Outpatient (CLI) | payer OTHER, SELFPAY ==
[2024-02-27 12:39] LABS: Erythrocyte Sedimentation Rate 17 mm/hr (0-30)
== END | disposition home or self-care (01) ==
LOC: LAB 12:02
PROVIDERS: PCP Family Medicine; Referring Provider Internal Medicine Gastroenterology; Visit Provider Internal Medicine Gastroenterology
DX: K58.0 Irritable bowel syndrome with diarrhea (principal)
CPT/HCPCS: 36415; 85652; 86140

== ENCOUNTER → 2024-05-08 | Outpatient (CLI) | payer OTHER, SELFPAY ==
[2024-05-08 12:26] LABS: Erythrocyte Sedimentation Rate 8 mm/hr (0-30)
== END | disposition home or self-care (01) ==
PROVIDERS: PCP Family Medicine; Referring Provider Internal Medicine Gastroenterology; Visit Provider Internal Medicine Gastroenterology
DX: R79.82 Elevated C-reactive protein (CRP) (principal)
CPT/HCPCS: 36415; 85652; 86140

== ENCOUNTER → 2024-06-26 | Outpatient (CLI) | payer OTHER, SELFPAY ==
[2024-06-26 12:27] LABS: Absolute Lymphocyte Count 3.54 X10^3/uL (0.83-4.51); Absolute Neutrophil Count 16.6 X10^3/uL (2.0-7.7); Basophil# 0.06 X10^3/uL; Basophil% 0.3 % (0-1); Eosinophils% 0.5 % (0-5); Hematocrit 38.9 % (37-47); Hemoglobin 12.2 g/dL (12.0-15.0); Lymphocyte # 3.54 X10^3/ul (0.83-4.51); Lymphocyte % 16.7 % (19-41); Mean Corp Hgb Conc 31.4 g/dL (32-36); Mean Corpuscular Volume 92.4 fL (81-99); Mean Platelet Vol. 10.7 fl (6.2-12.0); Monocyte# 0.68 X10^3/uL; Monocyte% 3.2 % (0-10); NRBC Flagged by Analyzer 0 % (0-5); Neutrophil # 16.63 X10^3/uL (2.7-7.7); Neutrophil % 78.7 % (47-70); Platelet Count 378 K/mm3 (150-450); RBC Distribution Width CV 12.5 % (11.6-14.6); RBC Distribution Width SD 42.4 fl (35.1-43.9); Red Blood Count 4.21 M/mm3 (4.2-5.4); White Blood Count 21.1 K/mm3 (4.4-11.0)
[2024-06-26 12:48] LABS: Erythrocyte Sedimentation Rate 30 mm/hr (0-30)
[2024-06-26 13:01] LABS: ALB/GLOB Ratio 0.9 RATIO (0.9-2.4); AST(SGOT) 8 U/L (15-37); Alanine Aminotransfer ALT/SGPT 21 U/L (13-56); Albumin, Serum 3.4 g/dL (3.2-5.0); Alkaline Phosphatase 64 U/L (45-117); Anion Gap 7 (5-15); BUN 11 mg/dL (7-18); Calcium,Total 9.1 mg/dL (8.5-10.1); Chloride 106 mmol/L (98-107); Creatinine, Serum 0.92 mg/dL (0.55-1.02); EST Glomerular Filtration Rate 79 mL/min (>60); Est Glom Filt Rate - Afr Amer 96 mL/min (>60); Ferritin 228 ng/mL (8-252); Globulin 3.8 g/dL (2.2-4.2); Glucose 85 mg/dL (74-106); Potassium 3.8 mmol/L (3.5-5.1); Protein, Total 7.2 g/dL (6.4-8.2); Sodium Level 140 mmol/L (136-145)
[2024-06-27 15:08] LABS: Albumin 3.6 g/dL (2.9-4.4); Alpha-1-Globulins 0.3 g/dL (0.0-0.4); Alpha-2-Globulins 1.1 g/dL (0.4-1.0); Gamma Globulin 0.6 g/dL (0.4-1.8); Immunoglobulin A 127 mg/dL (87-352); Immunoglobulin G 691 mg/dL (586-1602); Immunoglobulin M 157 mg/dL (26-217); PROEL- TOTAL PROTEIN 6.7 g/dL (6.0-8.5)
== END | disposition home or self-care (01) ==
LOC: LAB 11:58
PROVIDERS: PCP Family Medicine; Referring Provider Internal Medicine Gastroenterology; Visit Provider Internal Medicine Gastroenterology
DX: R79.82 Elevated C-reactive protein (CRP) (principal)
CPT/HCPCS: 36415; 80053; 82728; 82784; 84165; 85025; 85652; 86140; 86334

== ENCOUNTER → 2024-07-13 | Outpatient (CLI) | payer OTHER, SELFPAY ==
[2024-07-13 12:26] LABS: Prothrombin Time (Protime)PT. 13.6 SECONDS (11.7-14.9)
[2024-07-13 12:32] LABS: ALB/GLOB Ratio 0.8 RATIO (0.9-2.4); AST(SGOT) 10 U/L (15-37); Alanine Aminotransfer ALT/SGPT 19 U/L (13-56); Albumin, Serum 3.1 g/dL (3.2-5.0); Alkaline Phosphatase 59 U/L (45-117); Anion Gap 5 (5-15); BUN 11 mg/dL (7-18); BUN/Creat Ratio 12.7 RATIO (10-20); Calcium,Total 9.3 mg/dL (8.5-10.1); Chloride 106 mmol/L (98-107); Creatinine, Serum 0.86 mg/dL (0.55-1.02); EST Glomerular Filtration Rate 85 mL/min (>60); Est Glom Filt Rate - Afr Amer 103 mL/min (>60); Globulin 4.1 g/dL (2.2-4.2); Glucose 86 mg/dL (74-106); Potassium 3.8 mmol/L (3.5-5.1); Protein, Total 7.2 g/dL (6.4-8.2); Sodium Level 139 mmol/L (136-145)
[2024-07-13 12:39] LABS: Absolute Lymphocyte Count 5.18 X10^3/uL (0.83-4.51); Absolute Neutrophil Count 8.5 X10^3/uL (2.0-7.7); Basophil# 0.06 X10^3/uL; Basophil% 0.4 % (0-1); Eosinophil# 0.13 X10^3/uL; Eosinophils% 0.9 % (0-5); Hematocrit 39.7 % (37-47); Lymphocyte # 5.18 X10^3/ul (0.83-4.51); Lymphocyte % 35.7 % (19-41); Mean Corp Hgb Conc 30.2 g/dL (32-36); Mean Corpuscular Hgb 28.6 pg (27.0-32.0); Mean Corpuscular Volume 94.5 fL (81-99); Mean Platelet Vol. 11.7 fl (6.2-12.0); Monocyte# 0.58 X10^3/uL; NRBC Flagged by Analyzer 0 % (0-5); Neutrophil # 8.53 X10^3/uL (2.7-7.7); Neutrophil % 58.8 % (47-70); POSITIVE DIFFERENTIAL YES; Platelet Count 348 K/mm3 (150-450); RBC Distribution Width CV 12.1 % (11.6-14.6); RBC Distribution Width SD 41.8 fl (35.1-43.9); White Blood Count 14.5 K/mm3 (4.4-11.0)
[2024-07-13 12:41] LABS: Differential Indicated SCAN CRITERIA MET; Erythrocyte Sedimentation Rate 15 mm/hr (0-30)
[2024-07-13 13:17] LABS: Differential Comment SCANNED; Platelet Estimate ADEQUATE (ADEQ); Red Cell Morphology NORM C+C NORMAL (NORM C&C)
== END | disposition home or self-care (01) ==
LOC: BIMLAB 08:35
PROVIDERS: PCP Family Medicine; Referring Provider Internal Medicine Gastroenterology; Visit Provider Internal Medicine Gastroenterology
DX: R79.82 Elevated C-reactive protein (CRP) (principal)
CPT/HCPCS: 36415; 80053; 85025; 85610; 85652; 86140

== ENCOUNTER → 2024-11-16 | Outpatient (CLI) | payer OTHER, SELFPAY ==
--- NOTE | 2024-11-16 09:15 | RAD_ITS ---
EXAM: XR Left Hip With Pelvis When Performed, 2 or 3 Views CLINICAL INDICATION: HIP PAIN TECHNIQUE: Two or three views of the left hip with pelvis when performed. COMPARISON: No relevant prior studies available. FINDINGS: BONES/JOINTS: Unremarkable. No acute fracture. No dislocation. SOFT TISSUES: Unremarkable. RAD/HIP, UNI W/ Pelvis 2-3 Views IMPRESSION: Normal left hip x-rays. [facility]
--- NOTE | 2024-11-16 09:15 | RAD_ITS ---
EXAM: XR S-I Jts 3 CLINICAL INDICATION: CHRONIC PAIN PAIN IN LEFT HIP AND KNEE TECHNIQUE: 3 views of the sacroiliac joints. COMPARISON: No relevant prior studies available. FINDINGS: Mild degenerative change of the sacroiliac joints, bilaterally. RAD/S-I Jts 3 or More Views IMPRESSION: Degenerative changes as above. [facility]
--- NOTE | 2024-11-16 09:15 | RAD_ITS ---
EXAM: XR Left Knee Complete, 4 or More Views CLINICAL INDICATION: CHRONIC KNEE PAIN HIP PAIN TECHNIQUE: Four or more views of the left knee. COMPARISON: No relevant prior studies available. FINDINGS: BONES/JOINTS: Unremarkable. No acute fracture. No dislocation. SOFT TISSUES: Unremarkable. RAD/Knee 4 or More Views IMPRESSION: No acute fracture. [facility]
--- NOTE | 2024-11-16 09:15 | RAD_ITS ---
EXAM: XR Right Knee Complete, 4 or More Views CLINICAL INDICATION: CHRONIC PAIN OF LEFT KNEE AND HIP TECHNIQUE: Four or more views of the right knee. COMPARISON: No relevant prior studies available. FINDINGS: BONES/JOINTS: Unremarkable. No acute fracture. No dislocation. SOFT TISSUES: Unremarkable. RAD/Knee 4 or More Views IMPRESSION: No acute fracture. Reading [facility]
[2024-11-16 10:51] LABS: Color, Urine Yellow (Yellow); Glucose, Dipstick Normal (Normal); Ketone-Dipstick Negative (Negative); Leukocyte Esterase-Dipstick Negative /ul (Negative); Nitrite-Dipstick Negative (Negative); Occult Blood-Urine Negative /ul (Negative); Protein-Dipstick 15 mg/dl (Negative); Urine Bilirubin Dipstick Negative (Negative); Urine Clarity Sl. Cloudy (Clear); Urine Urobilinogen Normal (Normal)
[2024-11-16 10:54] LABS: Absolute Lymphocyte Count 2.94 X10^3/uL (0.83-4.51); Absolute Neutrophil Count 6.1 X10^3/uL (2.0-7.7); Basophil# 0.04 X10^3/uL; Basophil% 0.4 % (0-1); Eosinophil# 0.08 X10^3/uL; Eosinophils% 0.8 % (0-5); Erythrocyte Sedimentation Rate 19 mm/hr (0-30); Hematocrit 39.7 % (37-47); Hemoglobin 12.7 g/dL (12.0-15.0); Lymphocyte # 2.94 X10^3/ul (0.83-4.51); Lymphocyte % 30.6 % (19-41); Mean Corpuscular Hgb 27.9 pg (27.0-32.0); Mean Corpuscular Volume 87.1 fL (81-99); Mean Platelet Vol. 11.4 fl (6.2-12.0); Monocyte# 0.41 X10^3/uL; Monocyte% 4.3 % (0-10); NRBC Flagged by Analyzer 0 % (0-5); Neutrophil # 6.11 X10^3/uL (2.7-7.7); Neutrophil % 63.7 % (47-70); Platelet Count 345 K/mm3 (150-450); RBC Distribution Width CV 13.8 % (11.6-14.6); RBC Distribution Width SD 43.8 fl (35.1-43.9); Red Blood Count 4.56 M/mm3 (4.2-5.4); White Blood Count 9.6 K/mm3 (4.4-11.0)
[2024-11-16 11:04] LABS: Protein, Urine (Random) 9.3 mg/dL (0.0-12.0); Protein:Creat Ratio 101 mg/g CRE (0-200)
[2024-11-16 11:50] LABS: PTHIN 42 pg/mL (11-61)
[2024-11-16 11:56] LABS: AST(SGOT) 17 U/L (<=31); Alanine Aminotransfer ALT/SGPT 11 U/L (<=34); Alkaline Phosphatase 100 U/L (35-104); Bilirubin, Direct 0.08 mg/dL (0.00-0.30); CPK Total, Creatine Kinase 138 U/L (24-195); Creatinine, Serum 0.71 mg/dL (0.70-1.20); EST Glomerular Filtration Rate 120 (>60); Ferritin 266 ng/mL (22-378); Globulin 3.6 g/dL (2.2-4.2); Protein, Total 7.6 g/dL (5.9-8.4); Total Bilirubin 0.18 mg/dL (0.00-1.30)
[2024-11-16 12:05] LABS: Hepatitis B Surface Antibody REAC; Hepatitis B Surface Antigen Nonreactive (Nonreactive); Hepatitis C Antibody Nonreactive (Nonreactive)
[2024-11-16 12:41] LABS: Iron 40 ug/dL (50-170); Rheumatoid Factor < 10.0 IU/mL (<15)
[2024-11-17 14:08] LABS: CCP IgG Antibodies 6 units (0-19); Complement C3 218 mg/dL (82-167)
[2024-11-19 14:08] LABS: Anti-Centromere B Ab <0.2 AI (0.0-0.9); Anti-Jo <0.2 AI (0.0-0.9); Anti-Nuclear Antibody Test Negative (.); Anti-Scleroderma-70 AB <0.2 AI (0.0-0.9); Anti-dsDNA Ab <1 IU/mL (0-9); RNP Ab 0.2 AI (0.0-0.9); Smith Ab <0.2 AI (0.0-0.9)
== END | disposition home or self-care (01) ==
LOC: RAD 09:09
PROVIDERS: PCP Family Medicine
DX: M25.552 Pain in left hip (principal); M25.562 Pain in left knee; G89.29 Other chronic pain; M25.561 Pain in right knee
CPT/HCPCS: 36415; 72202; 73502; 73564; 80076; 81002; 82550; 82565; 82570; 82728; 83540; 83970; 84156; 85025; 85652; 86038; 86140; 86160; 86200; 86225; 86235; 86431; 86706; 86803; 87086; 87340

== ENCOUNTER → 2025-04-02 | Outpatient (CLI) | payer OTHER, SELFPAY ==
[2025-04-02 13:56] LABS: AST(SGOT) 22 U/L (<=31); Alanine Aminotransfer ALT/SGPT 17 U/L (<=34); Albumin, Serum 4.4 g/dL (3.5-5.0); Alkaline Phosphatase 132 U/L (35-104); Anion Gap 12 (5-15); BUN 12 mg/dL (4-19); BUN/Creat Ratio 14.1 RATIO (10-20); CRP 20.50 mg/L (0.0-3.0); Calcium,Total 9.6 mg/dL (7.6-11.0); Carbon Dioxide 22.3 mmol/L (21.0-32.0); Chloride 104 mmol/L (98-108); Globulin 3.5 g/dL (2.2-4.2); Glucose 88 mg/dL (70-99); Potassium 4.4 mmol/L (3.3-5.1)
--- OUTSIDE RECORDS SUMMARY | 2025-04-02 19:08 | XMS RPT_ITS | CCD ---
Author Organization [facility] CliniSysd Care Team Providers Care Gaming Associate Name Role Phone Dr. Antonio Templeton Primary Care Provider Dr. Antonio Templeton Referring Provider Dr. Sonido Winchester Attending Provider Friend, Dr. Dick Attending Provider Dr. Antonio Templeton Primary Care Provider [phone] Dr. Antonio Templeton Referring Provider RAYSHAWN Rojas Attending Provider Dr. Antonio Templeton Primary Care Provider Dr. Antonio Templeton Referring Provider RAYSHAWN Rojas Attending Provider RAYSHAWN Tony Attending Provider Dr. Roxana Huffman Attending Provider Dr. Antonio Templeton Primary Care Provider [phone] Dr. Antonio Templeton Referring Provider [phone] RAYSHAWN Tony Attending Provider Dr. Monica Martinez Attending Provider RAYSHAWN Rojas Attending Provider Dr. Antonio Templeton Primary Care Provider Dr. Antonio Templeton Referring Provider Dr. Antonio Templeton Primary Care Provider Dr. Antonio Templeton Referring Provider [phone] Dr. Monica Martinez Attending Provider RAYSHAWN Rojas Attending Provider [phone] Friend, Dr. Dick Attending Provider Dr. Antonio Templeton Primary Care Provider [phone] Dr. Antonio Templeton Referring Provider Dr. Monica Martinez Attending Provider [phone] Antonio Templeton MD Primary Care Provider [phone] Dr. Antonio Templeton MD Referring Provider Nu Hall Attending Provider COUETTE, TONJA Attending Provider COUETTE, TONJA Referring Provider Unavailable Primary Care Provider Unavailabl e COUETTE, TONJA L Attending Unavailable FRIEND, TIMOTHY Referring Unavailable COUETTE, TONJA L Attending Unavailable COUETTE, TONJA L Attending Unavailable COUETTE, TONJA L Admitting Unavailable COUETTE, TONJA L Referring Unavailable COUETTE, TONJA L Attending Unavailable COUETTE, TONJA L Referring Unavailable COUETTE, TONJA L Attending Unavailable FRIEND, TIMOTHY Referring Unavailable COUETTE, TONJA L Attending Unavailable COUETTE, TONJA L Attending Unavailable Jareth JOHNSON, Dr. Alvarez Primary Care Provider Velma JOHNSON, Dr. Burrows Attending Provider [phone] Dr. Antonio Templeton MD Referring Provider Lorraine Sahu CNM Attending Provider REBECCA VALLE Attending Unavailable REBECCA VALLE Referring Unavailable Templeton, Antonio Primary Care Unavailable Stormy Carreon Attending Unavailable Stormy Carreon Referring Unavailable Templeton, Antonio Primary Care Unavailable Friend, Timothy Attending Unavailable Templeton, Antonio Primary Care Unavailable Templeton, Antonio Referring Unavailable Lorraine Sahu Attending Unavailable Templeton, Antonio Referring Unavailable Templeton, Antonio Primary Care Unavailable Nu Kelly Attending Unavailable Templeton, Antonio Referring Unavailable Templeton, Antonio Primary Care Unavailable Friend, Timothy Referring Unavailable Templeton, Antonio Primary Care Unavailable Friend, Timothy Attending Unavailable Friend, Timothy Attending Unavailable Friend, Timothy Referring Unavailable Templeton, Antonio Primary Care Unavailable Friend, Timothy Attending Unavailable FriendTimothy Referring Unavailable Antonio Templeton Primary Care Unavailable Darin Tony Attending Provider Allergies Allergy Classification Reported Allergen(s) Allergy Type Date of Onset Reaction(s) Facility (11 sources) Amoxicillin Drug Allergy 3 Other [facility] (11 sources) Clavulanate Drug Allergy 3 Other [facility] (1 source) Amoxicillin / Clavulanate Drug Allergy 5 Other (See Comments) [facility] (1 source) Amoxicillin Drug Allergy 5 [facility] (1 source) Clavulanate Drug Allergy 5 [facility] Medications Current Medications Medication Drug Class(es) Dates Sig (Normalized) Sig (Original) ascorbic acid 500 mg oral capsule (11 sources) Vitamin C Start: 11-08-2022 take 1 capsule by mouth twice daily Ascorbic Acid (Vitamin C) 500 mg capsule Active 500 mg PO TWICE A DAY November 08, 2022 12:00am B Complex Vitamins (VITAMIN B COMPLEX) TABS (1 source) B Complex Vitami ns (VITAMIN B COMPLEX) TABS as directed Orally Active ferrous sulfate 325 mg oral tablet (15 sources) Start: 01-02-2024 take 1 tablet by mouth once daily as needed Ferrous Sulfate 325 mg (65 mg iron) tablet Active 325 mg PO DAILY as needed for LOW IRON January 02, 2024 12:00am Start: 11-08-2022 End: 12-16-2023 take 1 tablet by mouth once daily Ferrous Sulfate 325 mg (65 mg iron) tablet Discontinued 325 mg PO DAILY November 08, 2022 12:00am December 16, 2023 9:35am fluticasone propionate 0.05 mg/actuat metered dose nasal spray (1 source) Corticosteroid take 1 spray(s) nasal route once daily Fluticasone propionate (FLONASE ALLERGY RELIEF) 50 MCG/ACT nasal spray 1 spray in each nostril Nasally Once a day Active hyoscyamine sulfate 0.125 mg disintegrating oral tablet (13 sources) Start: 2 Hyoscyamine Sulfate 0.125 mg tablet,disintegratin g Active 0.125 mg PO 2 to 4 times per day as needed for dyspepsia 30 0 November 19, 2021 12:00am hyoscyamine (LEV SIN) 0.125 MG tablet Take by mouth every 4 hours as needed for Cramping. Active meclizine hydrochloride 12.5 mg oral tablet (6 sources) Antiemetic Start: 01-02-2024 take 1 tablet by mouth every eight hours as needed for dizziness Meclizine 12.5 mg tablet Active 12.5 mg PO EVERY 8 HOURS NEEDED as needed for dizziness January 02, 2024 12:00am Multiple Vitamin (ONE DAILY MULTIVITAMIN ADULT) TABS (1 source) take 1 tablet by mouth once daily Multiple Vitamin (ONE DAILY MULTIVITAMIN ADULT) TABS 1 tab(s) orally once a day for 30 day(s) Active Multivitamin preparation (7 sources) Start: 11-08-2022 take 1 tablet by mouth once daily Multivitamin Active 1 TABLET PO DAILY November 07, 2022 11:00pm Start: 11-08-2022 take 1 tablet by isaias once daily Multivitamin Active 1 TABLET PO DAILY November 08, 2022 12:00am Multivitamin tablet (3 sources) Start: 11-08-2022 Multivitamin tablet Active 1 {tbl} PO DAILY November 08, 2022 12:00am nabumetone 750 mg oral tablet (1 source) Nonsteroidal Anti-inflammatory Drug Start: 09-11-2024 take 1 tablet by mouth every twelve hours nabumetone (RELAFEN) 750 MG tablet Take 1 tablet by mouth every 12 hours. 09/11/2024 Active predniSONE 20 mg oral tablet (20 sources) Start: 07-13-2024 take 10 mg by mouth once daily Prednisone 20 mg tablet Active 10 mg PO DAILY July 13, 2024 2:04pm Start: 03-02-2024 End: 07-13-2024 take 2 tablets by mouth once daily Prednisone 20 mg tablet Discontinued 40 mg PO DAILY 60 1 May 10, 2024 7:04am July 13, 2024 2:04pm Start: 05-13-2021 End: 09-05-2023 take 1 tablet by mouth once daily as needed Prednisone 10 mg tablet Discontinued 10 mg PO DAILY as needed May 13, 2021 12:00am September 05, 2023 5:16pm tamsulosin hydrochloride 0.4 mg oral capsule (9 sources) alpha-Adrenergic Amanda Start: 09-05-2023 take 1 capsule by mouth every twenty-four hours as needed Tamsulosin 0.4 mg capsule Active 0.4 mg PO Q24H as needed for KID STON September 05, 2023 1:00am Start: 09-05-2023 Tamsulosin Act navid MG PO September 05, 2023 12:00am Vitamin B Complex (Vitamins B Complex) capsule (8 sources) Start: 09-05-2023 Vitamin B Comp carolyn (Vitamins B Complex) capsule Active 1 NMA PO DAILY September 05, 2023 1:00am Start: 09-05-2023 take 1 capsule by mo [facility] once daily Vitamin B Complex (Vitamins B Complex) capsule Active 1 CAP PO DAILY September 05, 2023 1:00am Start: 09-05-2023 take 1 capsule by mo [facility] once daily Vitamin B Complex (Vitamins B Complex) capsule Active 1 CAP PO DAILY September 05, 2023 12:00am Completed/Discontinued Medications Medication Drug Class(es) Dates Sig (Normalized) Sig (Original) acetaminophen 325 mg / HYDROcodone bitartrate 5 mg oral tablet (8 sources) Opioid Agonist Start: 11-01-2023 End: 01-31-2024 Hydrocodone-Acetami nophen 5-325 mg tablet Discontinued 1 {tbl} PO EVERY 6 HOURS NEEDED as needed for Pain 10 3 November 01, 2023 January 31, 2024 3:21pm Calculus of distal left ureter Calculus of ureter Start: 11-01-2023 hydrocodone-ac etaminophen (NORCO) 5-325 MG Take by mouth. 11/01/2023 Active Start: 11-01-2023 take 1 tablet by isaias every six hours as needed Hydrocodone-Acetaminophen Active 1 TABLE T PO EVERY 6 HOURS NEEDED 10 3 November 01, 2023 acetaminophen 325 mg / oxyCODONE hydrochloride 5 mg oral tablet (15 sources) Opioid Agonist Start: 01-05-2024 End: 01-31-2024 Oxycodone-Acetaminophen (Percocet) 5-325 mg tablet Discontinued 1 {tbl} PO Q8H as needed for pain 10 3 0 January 05, 2024 January 31, 2024 3:21pm Calculus of ureter Calculus of ureter Start: 10-24-2022 End: 02-01-2023 Oxycodone-Acetaminophen (Per cocet) 5-325 mg tablet Discontinued 1 {tbl} PO Q8H as needed for pain 10 3 0 October 24, 2022 February 01, 2023 11:17am Calculus of kidney Calculus of kidney [id number] actuat albuterol 0.09 mg/actuat metered dose inhaler (12 sources) beta2-Adrenergic Agonist Start: 03-01-2021 End: 09-05-2023 Albuterol Sulfate (Proair Hfa) 90 mcg/actuation HFA aerosol inhaler Discontinued 1 - 2 NMA INHALATION EVERY 6 HOURS as needed for shortness of breath or wheezing 8.5 1 March 01, 2021 12:00am September 05, 2023 5:17pm Start: 03-01-2021 End: 09-05-2023 take 1 puff(s) by inhalation every six hours Albuterol Sulfate (Proair Hfa) 90 mcg/actuation HFA aerosol inhaler Discontinued 1 - 2 PUFF INHALATION EVERY 6 HOURS 8.5 March 01, 2021 12:00am September 05, 2023 5:17pm alosetron 1 mg oral tablet (20 sources) Serotonin-3 Receptor Antagonist Start: 02-01-2023 End: 09-05-2023 take 1 tablet by mouth once daily Alosetron 1 mg tablet Discontinued 1 mg PO DAILY 90 February 01, 2023 12:00am September 05, 2023 5:17pm Start: 08-04-2020 End: 11-08-2022 take 1 tablet by mouth once daily Alosetron 0.5 mg tablet Discontinued 0.5 mg PO DAILY 90 3 April 05, 2022 5:19pm November 08, 2022 11:58am amoxicillin 875 mg / clavulanate 125 mg oral tablet (12 sources) Penicillin-class Antibacterial Start: 03-04-2021 End: 05-13-2021 Amoxicillin-Pot Clavulanate (Augmentin) 875-125 mg tablet Discontinued 1 {tbl} PO TWICE A DAY 14 0 March 04, 2021 12:00am May 13, 2021 1:03pm celecoxib 200 mg oral capsule (20 sources) Nonsteroidal Anti-inflammatory Drug Start: 12-16-2023 End: 07-13-2024 take 1 capsule by mouth once daily Celecoxib 200 mg capsule Discontinued 200 mg PO DAILY December 16, 2023 9:35am July 13, 2024 2:03pm Start: 11-08-2022 End: 12-16-2023 take 1 capsule by mouth twice daily Celecoxib 200 mg capsule Discontinued 200 mg PO TWICE A DAY November 08, 2022 11:59am December 16, 2023 9:36am Start: 02-12-2022 End: 11-08-2022 take 1 capsule by mouth once daily Celecoxib 200 mg capsule Discontinued 200 mg PO DAILY February 12, 2022 12:00am November 08, 2022 12:00pm cephalexin 500 mg oral capsule (11 sources) Cephalosporin Antibacterial Start: 12-19-2021 End: 12-29-2021 take 1 capsule by mouth every twelve hours Cephalexin 500 mg capsule Discontinued 500 mg PO Q12H 20 10 0 December 19, 2021 12:00am December 28, 2021 12:00am December 29, 2021 12:04am ciprofloxacin 500 mg oral tablet (7 sources) Quinolone Antimicrobial Start: 11-01-2023 End: 12-16-2023 take 1 tablet by mouth twice daily Ciprofloxacin Hcl 500 mg tablet Discontinued 500 mg PO TWICE A DAY 14 0 November 01, 2023 1:00am December 16, 2023 9:35am docosahexaenoic acid 200 mg oral capsule (12 sources) Start: 05-09-2020 End: 03-01-2021 take 1 mg by mouth twice daily Docosahexaenoic Acid ( Dha) 200 mg capsule Discontinued mg PO TWICE A DAY May 09, 2020 12:00am March 01, 2021 9:37am 168 hr ethinyl estradiol 0.41888 mg/hr / norelgestromin 0.38725 mg/hr transdermal system (20 sources) Progestin, Estrogen Start: 08-27-2019 End: 06-25-2020 Norelgestromin-Ethin .Estradiol (Xulane) 150-35 mcg/24 hr patch weekly Discontinued 1 NMA TD EVERY WEEK 12 May 07, 2020 11:10am June 25, 2020 2:54pm apply once weekly for continuous cycling. Start: 08-27-2019 End: 06-25-2020 Norelgestromin-Ethin.Estradi ol (Xulane) 150-35 mcg/24 hr patch weekly Discontinued 1 PATCH TD EVERY WEEK May 07, 2020 11:10am June 25, 2020 2:54pm apply once weekly for continuous cycling. Norgestimate-Ethinyl Estradiol (20 sources) Progestin, Estrogen Start: 02-18-2025 End: 03-21-2025 Norgestimate-Ethinyl Estradiol (Sprintec (28)) 0.25-0.035 mg tablet Discontinued 1 {tbl} PO DAILY 84 0 February 18, 2025 1:37pm March 21, 2025 3:30pm take active pills only Start: 09-14-2024 take 1 tablet by isaias th once daily, then take 0.25-35 tablets by mouth once norgestimate-ethinyl estradiol (ORTHO-CYCLEN, SPRINTEC) 0.25-35 MG-MCG per tablet TAKE 1 TABLET BY MOUTH EVERY DAY. TAKE ACTIVE TABLETS ONLY 09/14/2024 Active Start: 01-31-2024 End: 02-18-2025 take 1 tablet by mouth once daily Norgestimate-Ethinyl Estradiol (Sprintec (28)) 0.25-35 mg-mcg tablet Discontinued 1 {tbl} PO DAILY 84 January 31, 2024 3:34pm February 18, 2025 1:38pm take active pills only Start: 01-31-2024 take 1 tablet by isaias th once daily Norgestimate-Ethinyl Estradiol (Sprintec (28)) 0.25-35 mg-mcg tablet Active 1 {tbl} PO DAILY 84 January 31, 2024 3:34pm take active pills only Start: 04-21-2023 End: 01-31-2024 take 1 tablet by mouth once daily Norgestimate-Ethinyl Estradiol (Sprintec (28)) 0.25-35 mg-mcg tablet Discontinued 1 {tbl} PO DAILY 84 April 21, 2023 8:26am January 31, 2024 3:34pm take active pills only Start: 04-21-2023 End: 01-31-2024 take 1 tablet by mouth once daily Norgestimate-Ethinyl Estradiol (Sprintec (28)) 0.25-35 mg-mcg tablet Discontinued 1 {tbl} PO DAILY 84 April 21, 2023 8:26am January 31, 2024 3:34pm take active pills only Start: 04-21-2023 take 1 tablet by isaias th once daily Norgestimate-Ethinyl Estradiol (Sprintec (28)) 0.25-35 mg-mcg tablet Active 1 TABLET PO DAILY April 21, 2023 8:26am take active pills only Start: 04-21-2023 take 1 tablet by isaias th once daily Norgestimate-Ethinyl Estradiol (Sprintec (28)) 0.25-35 mg-mcg tablet Active 1 TABLET PO DAILY April 21, 2023 7:26am take active pills only Start: 04-20-2023 End: 04-21-2023 Norgestimate-Ethinyl Estradi ol (Sprintec (28)) 0.25-35 mg-mcg tablet Discontinued 1 {tbl} PO DAILY 84 April 20, 2023 1:14pm April 21, 2023 8:26am Start: 04-20-2023 End: 04-21-2023 Norgestimate-Ethinyl Estradi ol (Sprintec (28)) 0.25-35 mg-mcg tablet Discontinued 1 {tbl} PO DAILY April 20, 2023 1:14pm April 21, 2023 8:26am Start: 04-20-2023 End: 04-21-2023 take 1 tablet by mouth once daily Norgestimate-Ethinyl Estradiol (Sprintec (28)) 0.25-35 mg-mcg tablet Discontinued 1 TABLET PO DAILY April 20, 2023 1:14pm April 21, 2023 8:26am Start: 04-20-2023 End: 04-21-2023 take 1 tablet by mouth once daily Norgestimate-Ethinyl Estradiol (Sprintec (28)) 0.25-35 mg-mcg tablet Discontinued 1 TABLET PO DAILY April 20, 2023 12:14pm April 21, 2023 7:26am Start: 02-22-2023 End: 04-20-2023 Norgestimate-Ethinyl Estradi ol (Sprintec (28)) 0.25-35 mg-mcg tablet Discontinued 1 {tbl} PO DAILY 84 February 22, 2023 12:00am April 20, 2023 1:15pm Start: 02-22-2023 End: 04-20-2023 Norgestimate-Ethinyl Estradi ol (Sprintec (28)) 0.25-35 mg-mcg tablet Discontinued 1 {tbl} PO DAILY 84 February 22, 2023 12:00am April 20, 2023 1:15pm Start: 02-22-2023 End: 04-20-2023 take 1 tablet by mouth once daily Norgestimate-Ethinyl Estradiol (Sprintec (28)) 0.25-35 mg-mcg tablet Discontinued 1 TABLET PO DAILY 84 February 22, 2023 12:00am April 20, 2023 1:15pm Start: 02-22-2023 End: 04-20-2023 take 1 tablet by mouth once daily Norgestimate-Ethinyl Estradiol (Sprintec (28)) 0.25-35 mg-mcg tablet Discontinued 1 TABLET PO DAILY 84 February 21, 2023 11:00pm April 20, 2023 12:15pm Start: 09-08-2017 End: 08-27-2019 take 1 tablet by mouth once daily Norgestimate-Ethinyl Estradiol Discontinued 1 TABLET PO DAILY 84 84 September 08, 2017 1:31pm August 27, 2019 2:46pm Start: 09-08-2017 End: 08-27-2019 Norgestimate-Ethinyl Estradi ol 0.25-35 mg-mcg tablet Discontinued 1 {tbl} PO DAILY 84 84 0 September 08, 2017 1:00am August 27, 2019 2:46pm Start: 09-08-2017 End: 08-27-2019 Norgestimate-Ethinyl Estradi ol 0.25-35 mg-mcg tablet Discontinued 1 {tbl} PO DAILY 84 84 September 08, 2017 1:00am August 27, 2019 2:46pm Start: 09-08-2017 End: 08-27-2019 take 1 tablet by mouth once daily Norgestimate-Ethinyl Estradiol Discontinued 1 TABLET PO DAILY 84 84 September 08, 2017 1:00am August 27, 2019 2:46pm Start: 09-08-2017 End: 08-27-2019 take 1 tablet by mouth once daily Norgestimate-Ethinyl Estradiol Discontinued 1 TABLET PO DAILY 84 84 September 08, 2017 12:00am August 27, 2019 1:46pm folic acid 1 mg oral tablet (3 sources) Start: 02-13-2024 End: 03-16-2024 take 1 tablet by mouth once daily Folic Acid 1 mg tablet Discontinued 1 mg PO DAILY 30 2 February 13, 2024 12:00am March 16, 2024 7:28am hydroxychloroquine sulfate 200 mg oral tablet (12 sources) Antimalarial, Antirheumatic Agent Start: 05-13-2021 End: 02-12-2022 take 1 tablet by mouth twice daily Hydroxychloroquine (Plaquenil) 200 mg tablet Discontinued 200 mg PO TWICE A DAY May 13, 2021 12:00am February 12, 2022 1:07pm levonorgestrel 0.264036 mg/hr intrauterine system (13 sources) Progestin, Progestin-contain ing Intrauterine Device Start: 06-25-2020 End: 02-22-2023 Levonorgestrel (Liletta) 20.1 mcg/24 hrs (6 yrs) 52 mg intrauterine device Discontinued 1 NMA INTRA-UTER ONCE 1 0 June 25, 2020 12:00am February 22, 2023 4:20pm as a single dose Start: 06-25-2020 End: 02-22-2023 Levonorgestrel (Liletta) 20. 1 mcg/24 hrs (6 yrs) 52 mg intrauterine device Discontinued 1 DEVICE INTRA-UTER ONCE 1 June 25, 2020 12:00am February 22, 2023 4:20pm as a single dose lisdexamfetamine dimesylate 30 mg oral capsule (12 sources) Central Nervous System Stimulant Start: 08-16-2024 End: 11-21-2024 take 1 capsule by mouth once daily in the morning Lisdexamfetamine (Vyvanse) 30 mg capsule Discontinued 30 mg PO EVERY MORNING 90 90 0 August 23, 2024 November 20, 2024 12:00am November 21, 2024 12:11am High C-reactive protein Irritable bowel syndrome with diarrhea Steatosis of liver Rheumatoid arthritis Elevated C-reactive protein (CRP) Irritable bowel syndrome with diarrhea Fatty (change of) liver, not elsewhere classified Rheumatoid arthritis, unspecified Start: 07-13-2024 End: 08-12-2024 take 1 capsule by mouth once daily in the morning Lisdexamfetamine (Vyvanse) 30 mg capsule Discontinued 30 mg PO EVERY MORNING 30 30 0 July 13, 2024 August 11, 2024 1:00am August 12, 2024 1:08am High C-reactive protein Elevated C-reactive protein (CRP) magnesium citrate 58.2 mg/ml oral solution (12 sources) Start: 03-06-2021 End: 11-08-2022 take 1 mL by mouth once Magnesium Citrate solution Discontinued 300 mL PO ONE TIME 2 March 06, 2021 12:00am November 08, 2022 11:58am May repeat in 12 hours if no bowel movement Start: 03-06-2021 End: 11-08-2022 take 1 mL by mouth once Magnesium Citrate Discontinu ed 300 ML PO ONE TIME 2 March 06, 2021 12:00am November 08, 2022 11:58am May repeat in 12 hours if no bowel movement ondansetron 4 mg disintegrating oral tablet (20 sources) Serotonin-3 Receptor Antagonist Start: 10-24-2022 End: 09-08-2023 take 1 tablet by mouth every eight hours as needed for nausea Ondansetron 4 mg tablet,disintegrating Discontinued 4 mg PO EVERY 8 HOURS NEEDED as needed for Nausea 10 October 24, 2022 1:00am September 08, 2023 9:07am Start: 03-06-2021 End: 11-08-2022 take 1 tablet by mouth every six hours as needed for nausea Ondansetron 4 MG tablet Discontinued 4 mg PO EVERY 6 HOURS NEEDED as needed for Nausea March 06, 2021 3:15pm November 08, 2022 11:58am Start: 08-17-2018 End: 08-27-2019 take 1 tablet by mouth every eight hours as needed for nausea Ondansetron 4 MG tablet Discontinued 4 mg PO EVERY 8 HOURS NEEDED as needed for Nausea August 17, 2018 1:00am August 27, 2019 2:44pm pantoprazole 40 mg delayed release oral tablet (20 sources) Proton Pump Inhibitor Start: 02-01-2023 End: 01-23-2025 take 1 tablet by mouth once daily in the morning Pantoprazole 40 mg tablet,delayed release (DR/EC) Discontinued 40 mg PO EVERY MORNING 90 2 January 22, 2025 2:56pm January 23, 2025 11:16am take 1 tablet by mouth once connie y pantoprazole (PROTONIX) 20 MG tablet 1 tab(s) orally once a day Active phenazopyridine hydrochloride 200 mg oral tablet (4 sources) Start: 01-05-2024 End: 01-31-2024 take 1 tablet by mouth three times daily as needed for muscle spasms Phenazopyridine (Pyridium) 200 mg tablet Discontinued 200 mg PO 3 TIMES DAILY NEEDED as needed for Bladder Spasms 30 7 January 05, 2024 12:00am January 31, 2024 3:21pm sulfamethoxazole 800 mg / trimethoprim 160 mg oral tablet (4 sources) Dihydrofolate Reductase Inhibitor Antibacterial, Sulfonamide Antimicrobial Start: 01-05-2024 End: 01-31-2024 Sulfamethoxazole-Tri methoprim 800-160 mg tablet Discontinued 1 {tbl} PO TWICE A DAY 6 3 January 05, 2024 12:00am January 31, 2024 3:21pm Start: 01-05-2024 take 1 tablet by isaias twice daily Sulfamethoxazole-Trimethoprim Active 1 T ABLET PO TWICE A DAY 6 January 05, 2024 12:00am sulfaSALAzine 500 mg oral tablet (3 sources) Aminosalicylate Start: 02-13-2024 End: 03-16-2024 take 1 tablet by mouth twice daily at mealtime Sulfasalazine 500 mg tablet Discontinued 0.5 g PO TWICE A DAY 60 3 February 13, 2024 12:00am March 16, 2024 7:28am give with food (meal/snack) Problems Active Problems Problem Classification Problem Date Documented Da te Episodic/Chronic Abdominal pain (19 sources) Epigastric pain; Translations: [Epigastric pain] 02-01-2023 Episodic Calculus of urinary tract (20 sources) Kidney stone; Translations: [Calculus of kidney] Onset: 01-09-2025 10-24-2022 Episodic Complications of surgical procedures or medical care (9 sources) Disorder of skin; Translations: [Accidental puncture and laceration of skin and subcutaneous tissue during a dermatologic procedure] 12-22-2022 Episodic Contraceptive and procreative management (1 source) Encounter for contraceptive management, unspecified; Translations: [Encounter for contraceptive management, unspecified] Onset: 03-21-2025 Episodic E Codes: Cut/pierceb (9 sources) Contact with contaminated hypodermic needle, initial encounter; Translations: [Accidental needlestick injury with exposure to body fluid] 12-23-2022 Episodic Immunizations and screening for infectious disease (20 sources) Patient encounter status; Translations: [Encounter for screening for respiratory tuberculosis] 04-22-2022 Episodic Comment on above: No PA needed for Nex planon 02/20/25 Nausea and vomiting (12 sources) Vomiting; Translations: [Vomiting, unspecified] 03-06-2021 Episodic Nutritional deficiencies (12 sources) Iron deficiency; Translations: [Iron deficiency] 02-01-2023 Episodic Other bone disease and musculoskeletal deformities (20 sources) Segmental and somatic dysfunction; Translations: [Segmental and somatic dysfunction of cervical region] 09-07-2023 Episodic Other bone disease and musculoskeletal deformities (12 sources) Segmental and somatic dysfunction of cervical region; Translations: [Nonallopathic lesions, cervical region] 09-05-2023 Episodic Other bone disease and musculoskeletal deformities (12 sources) Segmental and somatic dysfunction of lumbar region; Translations: [Nonallopathic lesions, lumbar region] 09-05-2023 Episodic Other bone disease and musculoskeletal deformities (12 sources) Segmental and somatic dysfunction of sacral region; Translations: [Nonallopathic lesions, sacral region] 09-05-2023 Episodic Other bone disease and musculoskeletal deformities (12 sources) Segmental and somatic dysfunction of thoracic region; Translations: [Nonallopathic lesions, thoracic region] 09-05-2023 Episodic Other gastrointestinal disorders (13 sources) Irritable bowel syndrome with diarrhea; Translations: [Irritable bowel syndrome with diarrhea] 11-20-2021 Chronic Other gastrointestinal disorders (12 sources) Irritable bowel syndrome; Translations: [Irritable bowel syndrome without diarrhea] 05-09-2020 Chronic Other gastrointestinal disorders (2 sources) Irritable bowel syndrome without diarrhea; Translations: [Irritable bowel syndrome] Chronic Other gastrointestinal disorders (4 sources) Irritable bowel syndrome with diarrhea; Translations: [Irritable bowel syndrome] Chronic Other gastrointestinal disorders (12 sources) Constipation; Translations: [Constipation, unspecified] 03-06-2021 Episodic Other hematologic conditions (1 source) ESR raised; Translations: [Elevated erythrocyte sedimentation rate] 01-28-2025 Episodic Other hematologic conditions (1 source) Elevated erythrocyte sedimentation rate; Translations: [Elevated erythrocyte sedimentation rate] Onset: 01-28-2025 Episodic Other liver diseases (12 sources) Steatosis of liver; Translations: [Fatty (change of) liver, not elsewhere classified] 11-19-2021 Chronic Other liver diseases (1 source) Fatty (change of) liver, not elsewhere classified; Translations: [Other chronic nonalcoholic liver disease] Chronic Other nervous system disorders (1 source) Other chronic pain; Translations: [Other chronic pain] Onset: 11-02-2024 Chronic Other non-traumatic joint disorders (1 source) Hip pain; Translations: [Pain in left hip] 01-28-2025 Episodic Other screening for suspected conditions (not mental disorders or infectious disease) (9 sources) Elevated C-reactive protein; Translations: [Elevated C-reactive protein (CRP)] Onset: 08-09-2024 03-14-2024 Episodic Other upper respiratory infections (20 sources) Acute sinusitis; Translations: [Acute sinusitis, unspecified] 12-19-2021 Episodic Rheumatoid arthritis and related disease (13 sources) Rheumatoid arthritis; Translations: [Rheumatoid arthritis, unspecified] Chronic Spondylosis; intervertebral disc disorders; other back problems (20 sources) Backache; Translations: [Dorsalgia, unspecified] 09-07-2023 Episodic Past or Other Problems Problem Classification Problem Date Documented Da te Episodic/Chronic Other non-traumatic joint disorders (2 sources) Pain in left hip; Translations: [Pain in left hip] Onset: 11-22-2024 Episodic Other non-traumatic joint disorders (1 source) Pain in left knee; Translations: [Pain in left knee] Onset: 11-02-2024 Episodic Results Test Name Value Interpretation Reference Range Facility Laboratory - Chemistry and C hemistry - challengeOrdered By: Lorraine Sahu on 03-21-2025 HCG ( test) Ql (U) Negative [facility] Cover Seamer Office Visit Reporton 03-21-2025 Cover Seamer Office Visit Report [facility]'[address], [address] [place] [address] OFFICE VISIT Date of Service: 03/21/25 MR#: [id number] Acct: [id number] Name: HILDA MORGAN Rep #: [id number] : 2000 Provider: MARLON Herrera ams Age/Sex: 24/F [place] [facility] [place]: Signed Intake Vital Signs 01/31/24 15:11 03/21/25 15:27 Height 5 ft 6 in 5 ft 6 in Weight: 245 lb 2 oz BMI 39.5 BP 113/77 Intake Visit Reasons: Nexplanon Insertion Chief Complaint: Nexplanon Insertion System Designer Required: No Is patient in pain?: No Allergies amoxicillin (From Augmentin) Allergy (Verified 03/21/25 15:30) Other clavulanic acid (From Augmentin) Allergy (Verified 03/21/25 15:30) Other Medications ???Medication ???Instructions ???Recorded ???Confirmed ???Type hyoscyamine sulfate 0.125 mg 0.125 mg PO BID-QID PRN dyspepsia 11/19/21 03/21/25 Rx disintegrating tablet #30 tabs ascorbic acid (vitamin C) 500 mg 500 mg PO BID 11/08/22 03/21/25 Hi story capsule multivitamin 1 tab PO DAILY 11/08/22 03/21/25 H istory tamsulosin 0.4 mg capsule 0.4 mg PO Q24H PRN KID STON 03/21/25 History vitamin B complex (Vitamins B 1 cap PO DAILY 09/05/23 03/21/25 H istory Complex capsule) ferrous sulfate 325 mg (65 mg 325 mg PO DAILY PRN LOW IRON 01/0103/21/25 History iron) tablet meclizine 12.5 mg tablet 12.5 mg PO Q8H PRN PRN dizziness 0 01/02/24 03/21/25 History prednisone 20 mg tablet 10 mg PO DAILY 07/13/24 03/21/25 H istory pantoprazole 40 mg tablet,delayed 40 mg PO QAM #90 tabs 01/23/25 Rx release Is last menstrual period known: Yes Last Menstrual Period: 03/19/25 Post menopausal: No Patient : No : No PFSH PFSH Medical History Ureteral stone Wears glasses Anxiety Alcohol use Anemia Back pain Syncope History of IBS Gastric reflux Non-smoker Accidental puncture and laceration of skin and subcutaneous tissue during a dermatologic procedure Contact with and (suspected) exposure to other viral communicable diseases URI (upper respiratory infection) Iron deficiency Vertigo IBS (irritable bowel syndrome) Social History number of children: 0 current occupational status: employed Smoking Status: Never smoker alcohol intake: current alcohol intake frequency: a few times a month Alcohol type: wine substance use type: does not use diet: vegetarian lorenzo/sabianism: Jehovah Witness seatbelt use: always do you feel safe at home: Yes additional social history: Works at [employer]IM [employer] -[employer] HPI Nexplanon Insertion Details: HILDA MORGAN is a 24 year old who presents for Nexplanon insertion. discussed risk and benefits agrees to insertion Female Reproductive History Last Menstrual Period: 03/19/25 Questions: sexually active: Yes Office Procedures Nexplanon Insertion Nexplanon Insertion Details: Sign in Communication: Completed Sign out Discussion: Completed Technique: Patient placed in supine position with left arm bent at the elbow and placed over the head. Skin cleansed with betadine. 1mL of 1% lidocaine with epinephrine injected subQ along insertion site. 5mm stab incision made with a scalpel and Nexplanon uriah inserted under sterile technique. The uriah was palpable under the skin after insertion and the notch visible on the trochar after insertion. Steristrips and sterile pressure dressing applied. Nexplanon Insertion Nexplanon Insertion Details: Sign in Communication: Completed Sign out Discussion: Completed Technique: Patient placed in supine position with left arm bent at the elbow and placed over the head. Skin cleansed with betadine. 1mL of 1% lidocaine with epinephrine injected subQ along insertion site. 5mm stab incision made with a scalpel and Nexplanon uriah inserted under sterile technique. The uriah was palpable under the skin after insertion and the notch visible on the trochar after insertion. Steristrips and sterile pressure dressing applied. Office Meds Nexplanon 68 mg subdermal implant Performing Provider: Lorraine Sahu CNM Performing Location: [facility] Administered by: Lorraine Sahu CNM on 03/21/25 15:55 Dose Route Admin Location Dispensed Lot Number Expiration Date NDC Man ufacturer 68 mg subdermal left arm 68 mg [id number] 02/25/27 14791-057-07 [employer] Results POC Urine Office , Urine Negative Last Edit by Uzma Martinez on 03/21/25 15:38 Coding Level of Care Code Attention Aparna Diagnoses Contraceptive management Z30.9 Assessment and Plan Assessment and Plan (1) Contraceptive management: Status: (more content not included)... Normal [facility] MRI PELVIS WITHOUT IV CONTRA STon 01-28-2025 MRI PELVIS WITHOUT IV CONTRAST EXAM: MRI PELVIS WITHOUT IV CONTRAST HISTORY: Abnormal findings on diagnostic imaging of other parts of musculoskeletal system:Elevated C-reactive protein (CRP):Pain in left hip:Elevated erythrocyte sedimentation rate: COMPARISON: None. TECHNIQUE: Multiplanar, multisequence imaging of the pelvis performed without the administration of intravenous or intra-articular gadolinium contrast. FINDINGS: There are 3 tiny subcentimeter (4-6 mm) foci of T1 hypointense/STIR hyperintense signal within the proximal right femur. Bone marrow signal of the hips and bony pelvis are otherwise normal. There is no acute fracture or dislocation of the hips or bony pelvis. There is no femoral head osteonecrosis. Bilateral hip joints are normal without osteoarthritis or MRI findings of inflammatory arthropathy. There are no periarticular erosions. There are no hip effusions. Bilateral sacroiliac joints are normal without osteoarthritis or inflammatory arthropathy there are no periarticular erosions. The pubic symphysis is normal. Muscles of the hips and pelvis are normal and symmetric bilaterally. There is no greater trochanteric bursitis. Evaluation of the acetabular labrum on this nondedicated nonarthrographic examination demonstrates no discrete acetabular labral tear. IMPRESSION: 1. No acute fracture or dislocation of the bony pelvis or hips. 2. Normal appearance of bilateral hips, bilateral sacroiliac joints, pubic symphysis. Specifically, there are no prior findings of sacroiliitis. 3. Normal and symmetric muscles of the hips and pelvis bilaterally. 4. 3 tiny subcentimeter foci of T1 hypointense/STIR hyperintense signal within the proximal right femur, indeterminate. Diagnosis: Abnormal plain x-ray of sacrum [R93.7 (ICD-10-CM)] Elevated C-reactive protein (CRP) [R79.82 (ICD-10-CM)] Pain of left hip [M25.552 (ICD-10-CM)] Elevated sed rate [R70.0 (ICD-10-CM)] Tech Notes: pt c/o posterior pelvis pain into left hip, abnormal labs. No surg to [place]. No hx CA. Order Comments: Evaluate for sacroillitis Ordering Physician: Tonja Das DO Dose: Normal [facility] Anti-Centromere B Abon 11-19 ANTI-CENT B AB <0.2 Normal 0.0-0.9 [facility] Comment on above: Result Comment: AMENDED REPORT 11/19/241407 ANTI-CENT B previously reported as: Test not performed Performed By: #### L 3890.6301, L3410.0700, L3100.5500, L3410.9998, L501.6710, L509.1000, L3890.6202, L500.3400, L400.2011, L3890.6102, L3410.0500, L3410.4010, L505.7010, L3100.5800, L501.1105, L3100.5700, L4600.0100, L501.3620, L3410.1110, L100.0100, L503.6150, L3100.7950, L101.9900, L503.6550, L501.0900, M100.2200 ####[facility] [address] [place], [place], [address] Anti-Joe 11-19-2024 ANTI-JANICE-1 <0.2 Normal 0.0-0.9 [facility] Comment on above: Result Comment: AMENDED REPORT 11/19/241407 ANTI-JANICE previously reported as: Test not performed Performed By: #### L 3890.6301, L3410.0700, L3100.5500, L3410.9998, L501.6710, L509.1000, L3890.6202, L500.3400, L400.2010, L3890.6102, L3410.0500, L3410.4010, L505.7010, L3100.5800, L501.1105, L3100.5700, L4600.0100, L501.3620, L3410.1110, L100.0100, L503.6150, L3100.7950, L101.9900, L503.6550, L501.0900, M100.2200 ####[facility] [address] [place], [place], [id number] Fxfv-Mqlosnrucvx-45 ABon ANTISCLERODERM <0.2 Normal 0.0-0.9 [facility] Comment on above: Performed By: #### L 500.4050, L501.6710, L300.3900, L101.9900, L100.0100 #### [facility] [address] [place], [place], [id number] Anti-dsDNA [facility] 11-19-2024 ANTI-DNA (DS)AB <1 Normal 0-9 [facility] Comment on above: Result Comment: Nega tive <5 Equivocal 5 - 9 Positive >9 Performed By: #### L 500.4050, L501.6710, L300.3900, L101.9900, L100.0100 #### [facility] [address] [place], [place], [id number] Antiextractable Nug Agon HOBBER Ab 0.2 AI Normal 0.0-0.9 [facility] Comment on above: Result Comment: AMENDED REPORT 11/19/24 1408 HOBBER Ab previously reported as: Test not performed Performed By: #### L 3890.6301, L3410.0700, L3100.5500, L3410.9998, L501.6710, L509.1000, L3890.6202, L500.3400, L400.2011, L3890.6102, L3410.0500, L3410.4010, L505.7010, L3100.5800, L501.1105, L3100.5700, L4600.0100, L501.3620, L3410.1110, L100.0100, L503.6150, L3100.7950, L101.9900, L503.6550, L501.0900, M100.2200 ####[facility] [address] [place], [place], [phone] TEMPLETON Ab <0.2 Normal 0.0-0.9 [facility] Comment on above: Result Comment: AMENDED REPORT 11/19/24 1408 TEMPLETON Ab previously reported as: Test not performed Performed By: #### L 3890.6301, L3410.0700, L3100.5500, L3410.9998, L501.6710, L509.1000, L3890.6202, L500.3400, L400.2011, L3890.6102, L3410.0500, L3410.4010, L505.7010, L3100.5800, L501.1105, L3100.5700, L4600.0100, L501.3620, L3410.1110, L100.0100, L503.6150, L3100.7950, L101.9900, L503.6550, L501.0900, M100.2200 ####[facility] [address] [place], [address] Antinuclear Antibody, IFAon 11-19-2024 ASTON, IFA Negative Normal . [facility] Comment on above: Result Comment: Nega tive <1:80 Borderline 1:80 Positive >1:80 ICAP nomenclature: AC-0 For more information about Hep-2 cell patterns use ANApatterns.org, the official website for the International Consensus on Antinuclear Antibody (ASTON) Patterns (ICAP). Performed at: - [facility] [id number] Senior Paralegal: Esteban Mckenna PhD, Phone: [phone] Performed By: #### L 500.4050, L501.6710, L300.3900, L101.9900, L100.0100 #### [facility] [address] [place], [address] CCP IgG Antibodieson 025 CCP IgG Ab. 6 units Normal 0-19 [facility] Comment on above: Result Comment: Nega tive <20 Weak positive 20 - 39 Moderate positive 40 - 59 Strong positive >59 Performed at: [address] [id number] Senior Paralegal: Esteban Mckenna PhD, Phone: [phone] Performed By: #### L 500.4050, L501.6710, L300.3900, L101.9900, L100.0100 #### [facility] [address] [facility] [place], [place], [id number] Complement C3on 11-17-2024 COMP C3 218 mg/dL High 82-167 [facility] Comment on above: Performed By: #### L 3890.6301, L3410.0700, L3100.5500, L3410.9998, L501.6710, L509.1000, L3890.6202, L500.3400, L400.2010, L3890.6102, L3410.0500, L3410.4010, L505.7010, L3100.5800, L501.1105, L3100.5700, L4600.0100, L501.3620, L3410.1110, L100.0100, L503.6150, L3100.7950, L101.9900, L503.6550, L501.0900, M100.2200 ####[facility] [address] [facility] [place], [address] Complement C4on 11-17-2024 COMPLEMENT, C4 45 mg/dL High 12-38 [facility] Comment on above: Performed By: #### L 3890.6301, L3410.0700, L3100.5500, L3410.9998, L501.6710, L509.1000, L3890.6202, L500.3400, L400.2011, L3890.6102, L3410.0500, L3410.4010, L505.7010, L3100.5800, L501.1105, L3100.5700, L4600.0100, L501.3620, L3410.1110, L100.0100, L503.6150, L3100.7950, L101.9900, L503.6550, L501.0900, M100.2200 ####[facility] [address] [place], [place], [id number] L3410.9998on 11-17-2024 [facility] COM[facility] Normal . [facility] Comment on above: Order Comment: [id number] 3 ANTI CHROMATIN RED POUR OFF FR Result Comment: Test Ordered: [id number] Anti-Chromatin Ab, IgG (RDL) Anti-Chromatin Ab, IgG (RDL) Units [facility] Reference Range: . Please refer to the following specimen for additional lab results. Please refer to [phone] for results. Negative: <20 Weak Positive: 20-39 Moderate Positive: 40-80 Strong Positive: >80 Performed at: [facility] [address] [id number] Senior Paralegal: Esteban Mckenna PhD, Phone: [phone] Performed at: [facility] [email or web address] [address] [id number] Senior Paralegal: Celestine Gustafson MD, Phone: [phone] Performed By: #### L 3410.9998 #### [facility] [address] [place], [place], [id number] [facility]. COMMENT Normal . [facility] Comment on above: Order Comment: [id number] 5THYROID CASCADE TIGER RMT Result Comment: Test Ordered: [id number] Thyroid Sibley Profile TSH 2.760 uIU/mL Reference Range: 0.450-4.500 No apparent thyroid disorder. Additional testing not indicated. In rare instances, Secondary Hypothyroidism as well as Subclinical Hypothyroidism have been reported in some patients with normal TSH values. Performed at: [facility] [address] [id number] Senior Paralegal: Esteban Mckenna PhD, Phone: [phone] Performed By: #### L 3890.6301, L3410.0700, L3100.5500, L3410.9998, L501.6710, L509.1000, L3890.6202, L500.3400, L400.2011, L3890.6102, L3410.0500, L3410.4010, L505.7010, L3100.5800, L501.1105, L3100.5700, L4600.0100, L501.3620, L3410.1110, L100.0100, L503.6150, L3100.7950, L101.9900, L503.6550, L501.0900, M100.2200 ####[facility] [address] [place], [place], [id number] Urine Cultureon 11-17-2024 URC Culture exhibits no growth. Normal [facility] Comment on above: Performed By: #### L 3890.6301, L3410.0700, L3100.5500, L3410.9998, L501.6710, L509.1000, L3890.6202, L500.3400, L400.2011, L3890.6102, L3410.0500, L3410.4010, L505.7010, L3100.5800, L501.1105, L3100.5700, L4600.0100, L501.3620, L3410.1110, L100.0100, L503.6150, L3100.7950, L101.9900, L503.6550, L501.0900, M100.2200 ####[facility] [address] [place], [place], [id number] Absolute neutrophil counton 11-16-2024 Neutrophils (Bld) [#/Vol] 6.1 10*3/uL 2.0-7.7 [facility] Antinuclear antibody (ASTON) a ssayon 11-16-2024 Anti-Nuclear Antibody Screen Negative . [facility] Comment on above: Negative <1:80 Borde rline 1:80 Positive >1:80ICAP nomenclature: AC-0For more information about Hep-2 cell patterns useANApatterns.org, the official website for theInternational Consensus on Antinuclear Antibody (ASTON)Patterns (ICAP).Performed at: [facility] [id number] Director: Esteban Mckenna PhD, Phone: [phone] Basophil percentageon 2024 Basophils/100 WBC (Bld) 0.4 % 0-1 [facility] Bilirubin Test strip Ql (U)o n 11-16-2024 Bilirubin Ql (U) Negative Negative [facility] Bilirubin directon 5 Bilirubin.direct [Mass/Vol] 0.08 mg/dL 0.00-0.30 [facility] Bilirubin, totalon 5 Bilirubin [Mass/Vol] 0.18 mg/dL 0.00-1.30 [facility] CBC W/Diff, Automatedon 10-28 Absolute Lymph 2.94 X10 3/uL Normal 0.83-4.51 [facility] Comment on above: Performed By: #### L 3890.6301, L3410.0700, L3100.5500, L3410.9998, L501.6710, L509.1000, L3890.6202, L500.3400, L400.2011, L3890.6102, L3410.0500, L3410.4010, L505.7010, L3100.5800, L501.1105, L3100.5700, L4600.0100, L501.3620, L3410.1110, L100.0100, L503.6150, L3100.7950, L101.9900, L503.6550, L501.0900, M100.2200 ####[facility] [address] [place], [place], [id number] Absolute Neut 6.1 X10 3/uL Normal 2.0-7.7 [facility] Comment on above: Performed By: #### L 3890.6301, L3410.0700, L3100.5500, L3410.9998, L501.6710, L509.1000, L3890.6202, L500.3400, L400.2011, L3890.6102, L3410.0500, L3410.4010, L505.7010, L3100.5800, L501.1105, L3100.5700, L4600.0100, L501.3620, L3410.1110, L100.0100, L503.6150, L3100.7950, L101.9900, L503.6550, L501.0900, M100.2200 ####[facility] [address] [place], [place], [phone](870) Basophils/100 WBC (Bld) 0.4 % Normal 0-1 [facility] Comment on above: Performed By: #### L 3890.6301, L3410.0700, L3100.5500, L3410.9998, L501.6710, L509.1000, L3890.6202, L500.3400, L400.2011, L3890.6102, L3410.0500, L3410.4010, L505.7010, L3100.5800, L501.1105, L3100.5700, L4600.0100, L501.3620, L3410.1110, L100.0100, L503.6150, L3100.7950, L101.9900, L503.6550, L501.0900, M100.2200 ####[facility] [address] [place], [place], [phone](423) Eosinophils/100 WBC (Bld) 0.8 % Normal 0-5 [facility] Comment on above: Performed By: #### L 3890.6301, L3410.0700, L3100.5500, L3410.9998, L501.6710, L509.1000, L3890.6202, L500.3400, L400.2011, L3890.6102, L3410.0500, L3410.4010, L505.7010, L3100.5800, L501.1105, L3100.5700, L4600.0100, L501.3620, L3410.1110, L100.0100, L503.6150, L3100.7950, L101.9900, L503.6550, L501.0900, M100.2200 ####[facility] [address] [facility] [place], [place], [id number] Erythrocyte distribution width (RBC) [Ratio] 13.8 % Normal 11.6-14.6 [facility] Comment on above: Performed By: #### L 3890.6301, L3410.0700, L3100.5500, L3410.9998, L501.6710, L509.1000, L3890.6202, L500.3400, L400.2010, L3890.6102, L3410.0500, L3410.4010, L505.7010, L3100.5800, L501.1105, L3100.5700, L4600.0100, L501.3620, L3410.1110, L100.0100, L503.6150, L3100.7950, L101.9900, L503.6550, L501.0900, M100.2200 ####[facility] [address] [place], [place], [id number] Hematocrit (Bld) [Volume fraction] 39.7 % Normal 37-47 [facility] Comment on above: Performed By: #### L 3890.6301, L3410.0700, L3100.5500, L3410.9998, L501.6710, L509.1000, L3890.6202, L500.3400, L400.2011, L3890.6102, L3410.0500, L3410.4010, L505.7010, L3100.5800, L501.1105, L3100.5700, L4600.0100, L501.3620, L3410.1110, L100.0100, L503.6150, L3100.7950, L101.9900, L503.6550, L501.0900, M100.2200 ####[facility] [address] [facility]. [place], [place], [id number] Hemoglobin (Bld) [Mass/Vol] 12.7 g/dL Normal 12.0-15.0 [facility] Comment on above: Performed By: #### L 3890.6301, L3410.0700, L3100.5500, L3410.9998, L501.6710, L509.1000, L3890.6202, L500.3400, L400.2011, L3890.6102, L3410.0500, L3410.4010, L505.7010, L3100.5800, L501.1105, L3100.5700, L4600.0100, L501.3620, L3410.1110, L100.0100, L503.6150, L3100.7950, L101.9900, L503.6550, L501.0900, M100.2200 ####[facility] [address] [facility] [place], [place], [id number] IG% 0.200 Normal 0.0-0.9 [facility] Comment on above: Result Comment: IG% - Immature Granulocytes (promyelocytes, myelocytes and metamyelocytes) > 1% indicates that a LEFT SHIFT is Present. Performed By: #### L 3890.6301, L3410.0700, L3100.5500, L3410.9998, L501.6710, L509.1000, L3890.6202, L500.3400, L400.2011, L3890.6102, L3410.0500, L3410.4010, L505.7010, L3100.5800, L501.1105, L3100.5700, L4600.0100, L501.3620, L3410.1110, L100.0100, L503.6150, L3100.7950, L101.9900, L503.6550, L501.0900, M100.2200 ####[facility] [address] [place], [address] Lymphocytes/100 WBC (Bld) 30.6 % Normal 19-41 [facility] Comment on above: Performed By: #### L 3890.6301, L3410.0700, L3100.5500, L3410.9998, L501.6710, L509.1000, L3890.6202, L500.3400, L400.2011, L3890.6102, L3410.0500, L3410.4010, L505.7010, L3100.5800, L501.1105, L3100.5700, L4600.0100, L501.3620, L3410.1110, L100.0100, L503.6150, L3100.7950, L101.9900, L503.6550, L501.0900, M100.2200 ####[facility] [address] [place], [address] MCH (RBC) [Entitic mass] 27.9 pg Normal 27.0-32.0 [facility] Comment on above: Performed By: #### L 3890.6301, L3410.0700, L3100.5500, L3410.9998, L501.6710, L509.1000, L3890.6202, L500.3400, L400.2011, L3890.6102, L3410.0500, L3410.4010, L505.7010, L3100.5800, L501.1105, L3100.5700, L4600.0100, L501.3620, L3410.1110, L100.0100, L503.6150, L3100.7950, L101.9900, L503.6550, L501.0900, M100.2200 ####[facility] [address] [facility] [place], [address] MCHC (RBC) [Mass/Vol] 32.0 g/dL Normal 32-36 [facility] Comment on above: Performed By: #### L 3890.6301, L3410.0700, L3100.5500, L3410.9998, L501.6710, L509.1000, L3890.6202, L500.3400, L400.2011, L3890.6102, L3410.0500, L3410.4010, L505.7010, L3100.5800, L501.1105, L3100.5700, L4600.0100, L501.3620, L3410.1110, L100.0100, L503.6150, L3100.7950, L101.9900, L503.6550, L501.0900, M100.2200 ####[facility] [address] [place], [address] MCV (RBC) [Entitic vol] 87.1 fL Normal 81-99 [facility] Comment on above: Performed By: #### L 3890.6301, L3410.0700, L3100.5500, L3410.9998, L501.6710, L509.1000, L3890.6202, L500.3400, L400.2011, L3890.6102, L3410.0500, L3410.4010, L505.7010, L3100.5800, L501.1105, L3100.5700, L4600.0100, L501.3620, L3410.1110, L100.0100, L503.6150, L3100.7950, L101.9900, L503.6550, L501.0900, M100.2200 ####[facility] [id number] [facility] [place], [place], [id number] Monocytes/100 WBC (Bld) 4.3 % Normal 0-10 [facility] Comment on above: Performed By: #### L 3890.6301, L3410.0700, L3100.5500, L3410.9998, L501.6710, L509.1000, L3890.6202, L500.3400, L400.2011, L3890.6102, L3410.0500, L3410.4010, L505.7010, L3100.5800, L501.1105, L3100.5700, L4600.0100, L501.3620, L3410.1110, L100.0100, L503.6150, L3100.7950, L101.9900, L503.6550, L501.0900, M100.2200 ####[facility] [address] [facility]. [place], [place], [address] Neutrophils/100 WBC (Bld) 63.7 % Normal 47-70 [facility] Comment on above: Performed By: #### L 3890.6301, L3410.0700, L3100.5500, L3410.9998, L501.6710, L509.1000, L3890.6202, L500.3400, L400.2011, L3890.6102, L3410.0500, L3410.4010, L505.7010, L3100.5800, L501.1105, L3100.5700, L4600.0100, L501.3620, L3410.1110, L100.0100, L503.6150, L3100.7950, L101.9900, L503.6550, L501.0900, M100.2200 ####[facility] [address] [facility]. [place], [place], [address] Nucleated RBC (Bld) [#/Vol] 0 10*3/uL Normal 0-5 [facility] Comment on above: Performed By: #### L 3890.6301, L3410.0700, L3100.5500, L3410.9998, L501.6710, L509.1000, L3890.6202, L500.3400, L400.2011, L3890.6102, L3410.0500, L3410.4010, L505.7010, L3100.5800, L501.1105, L3100.5700, L4600.0100, L501.3620, L3410.1110, L100.0100, L503.6150, L3100.7950, L101.9900, L503.6550, L501.0900, M100.2200 ####[facility] [address] [place], [place], [address] Platelet mean volume (Bld) [Entitic vol] 11.4 fL Normal 6.2-12.0 [facility] Comment on above: Performed By: #### L 3890.6301, L3410.0700, L3100.5500, L3410.9998, L501.6710, L509.1000, L3890.6202, L500.3400, L400.2010, L3890.6102, L3410.0500, L3410.4010, L505.7010, L3100.5800, L501.1105, L3100.5700, L4600.0100, L501.3620, L3410.1110, L100.0100, L503.6150, L3100.7950, L101.9900, L503.6550, L501.0900, M100.2200 ####[facility] [address] [place], [address] Platelets (Bld) [#/Vol] 345 10*3/uL Normal 150-450 [facility] Comment on above: Performed By: #### L 3890.6301, L3410.0700, L3100.5500, L3410.9998, L501.6710, L509.1000, L3890.6202, L500.3400, L400.2011, L3890.6102, L3410.0500, L3410.4010, L505.7010, L3100.5800, L501.1105, L3100.5700, L4600.0100, L501.3620, L3410.1110, L100.0100, L503.6150, L3100.7950, L101.9900, L503.6550, L501.0900, M100.2200 ####[facility] [address] [facility]. [place], [place], [id number] RBC (Bld) [#/Vol] 4.56 10*6/uL Normal 4.2-5.4 [facility] Comment on above: Performed By: #### L 3890.6301, L3410.0700, L3100.5500, L3410.9998, L501.6710, L509.1000, L3890.6202, L500.3400, L400.2010, L3890.6102, L3410.0500, L3410.4010, L505.7010, L3100.5800, L501.1105, L3100.5700, L4600.0100, L501.3620, L3410.1110, L100.0100, L503.6150, L3100.7950, L101.9900, L503.6550, L501.0900, M100.2200 ####[facility] [address] [place], [place], [address] RDW SD 43.8 fl Normal 35.1-43.9 [facility] Comment on above: Performed By: #### L 3890.6301, L3410.0700, L3100.5500, L3410.9998, L501.6710, L509.1000, L3890.6202, L500.3400, L400.2011, L3890.6102, L3410.0500, L3410.4010, L505.7010, L3100.5800, L501.1105, L3100.5700, L4600.0100, L501.3620, L3410.1110, L100.0100, L503.6150, L3100.7950, L101.9900, L503.6550, L501.0900, M100.2200 ####[facility] [address] [place], [place], [id number] WBC (Bld) [#/Vol] 9.6 10*3/uL Normal 4.4-11.0 [facility] Comment on above: Performed By: #### L 3890.6301, L3410.0700, L3100.5500, L3410.9998, L501.6710, L509.1000, L3890.6202, L500.3400, L400.2011, L3890.6102, L3410.0500, L3410.4010, L505.7010, L3100.5800, L501.1105, L3100.5700, L4600.0100, L501.3620, L3410.1110, L100.0100, L503.6150, L3100.7950, L101.9900, L503.6550, L501.0900, M100.2200 ####[facility] [address] [place], [place], [id number] CPK Total, Creatine Kinaseon 11-16-2024 CPK TOTAL 138 U/L Normal 24-195 [facility] Comment on above: Performed By: #### L 3890.6301, L3410.0700, L3100.5500, L3410.9998, L501.6710, L509.1000, L3890.6202, L500.3400, L400.2011, L3890.6102, L3410.0500, L3410.4010, L505.7010, L3100.5800, L501.1105, L3100.5700, L4600.0100, L501.3620, L3410.1110, L100.0100, L503.6150, L3100.7950, L101.9900, L503.6550, L501.0900, M100.2200 ####[facility] [address] [place], [place], [id number] CRPon 11-16-2024 C-REACTIVE PROT 41.60 mg/L High 0.0-3.0 [facility] Comment on above: Performed By: #### L 3890.6301, L3410.0700, L3100.5500, L3410.9998, L501.6710, L509.1000, L3890.6202, L500.3400, L400.2011, L3890.6102, L3410.0500, L3410.4010, L505.7010, L3100.5800, L501.1105, L3100.5700, L4600.0100, L501.3620, L3410.1110, L100.0100, L503.6150, L3100.7950, L101.9900, L503.6550, L501.0900, M100.2200 ####[facility] [address] [place], [place], [id number] CRP [Mass/Vol]on 11-16-2024 C-Reactive Protein Extended Range 41.60 mg/L High 0.0-3.0 [facility] Centromere B antibody assayo n 11-16-2024 Centromere B Antibody <0.2 AI 0.0-0.9 [facility] Comment on above: Previous reported re sult: TNP AIEdited by: PATRICIA on 11/19/24:1408 AMENDED REPORT 11/19/24 1408 ANTI-CENT B previously reported as: Test not performed Complement C3 assayon 2024 Complement C3 218 mg/dL High 82-167 [facility] Complement C4 [Mass/Vol]on 0 11-16-2024 Complement C4 45 mg/dL High 12-38 [facility] Creatinine Unsp time (U) [Ma ss/Vol]on 11-16-2024 Creatinine (U) [Mass/Vol] 92.60 mg/dL 28.00-217.00 [facility] Cyclic citrullinated peptide IgG Qnon 11-16-2024 Cyclic Citrullinated Peptide IgG Ab 6 units 0-19 [facility] Comment on above: Negative <20 Weak po sitive 20 - 39 Moderate positive 40 - 59 Strong positive >59Performed at: CB - [facility] [address] [id number] Director: Esteban Mckenna PhD, Phone: [phone] DNA double strand Ab Qn (S)o n 11-16-2024 Anti-Double Strand DNA Antibody <1 IU/mL 0-9 [facility] Comment on above: Negative <5 Equivoca l 5 - 9 Positive >9 Eosinophil percentageon 10-28 Eosinophils/100 WBC (Bld) 0.8 % 0-5 [facility] Erythrocyte Sed Rateon 11-16 SED RATE 19 mm/hr Normal 0-30 [facility] Comment on above: Performed By: #### L 3890.6301, L3410.0700, L3100.5500, L3410.9998, L501.6710, L509.1000, L3890.6202, L500.3400, L400.2011, L3890.6102, L3410.0500, L3410.4010, L505.7010, L3100.5800, L501.1105, L3100.5700, L4600.0100, L501.3620, L3410.1110, L100.0100, L503.6150, L3100.7950, L101.9900, L503.6550, L501.0900, M100.2200 ####[facility] [address] [place], [place], [id number] Erythrocyte distribution wid th ratioon 11-16-2024 Erythrocyte distribution width (RBC) [Ratio] 13.8 % 11.6-14.6 [facility] Erythrocyte distribution wid th standard deviationon 11-16-2024 Erythrocyte distribution width (RBC) [Entitic vol] 43.8 fL 35.1-43.9 [facility] Erythrocyte sedimentation ra monster 11-16-2024 ESR (Bld) [Velocity] 19 mm/h 0-30 [facility] Ferritinon 11-16-2024 Ferritin [Mass/Vol] 266 ng/mL Normal 22-378 [facility] Comment on above: Performed By: #### L 3890.6301, L3410.0700, L3100.5500, L3410.9998, L501.6710, L509.1000, L3890.6202, L500.3400, L400.2011, L3890.6102, L3410.0500, L3410.4010, L505.7010, L3100.5800, L501.1105, L3100.5700, L4600.0100, L501.3620, L3410.1110, L100.0100, L503.6150, L3100.7950, L101.9900, L503.6550, L501.0900, M100.2200 ####[facility] [address] [place], [address] GFR/1.73 sq M.predicted brittany g non-blacks MDRD (S/P/Bld) [Vol rate/Area]on 11-16-2024 Estimated GFR (MDRD) Non-Af Amer 120 >60 [facility] Comment on above: mL/min/1.73m2 CKD-EP I Creatinine Equation (2020) Glucose Ql (U)on 11-16-2024 Urine Glucose (UA) Normal mg/dl Normal [facility] HBV surface Ab Ql (S)on 10-28 Hepatitis B Surface Antibody REAC [facility] Comment on above: <8.5 mIU/mL: Non-Madeline ctive8.5<= x <11.5 mIU/mL: Indeterminate>=11.5 mIU/mL: Reactive Non Reactive: Inconsistent with immunity less than <10 mIU/mL Reactive: Consistent with immunity greater than or equal to 10 mIU/mL HBV surface Ag Ql (S)on 10-28 Hepatitis B Surface Antigen Non-Reactive Nonreactive [facility] Comment on above: Reactive: Presumptiv e evidence of HBV. Repeatedly reactive samples must be confirmed using a neutralization test ([employer] HBsAg Confirmatory Test)Non-Reactive: HBsAg not detected; does not exclude the possibility of exposure to HBV HIP, UNI W/ Pelvis 2-3 Views on 11-16-2024 HIP, UNI W/ Pelvis 2-3 Views [facility] Imaging Services [address] [place], [place] [address] HIP, UNI W/ Pelvis 2-3 Views MR#: [id number] Acct: [id number] Name: HILDA MORGAN Rep #: [id number] : 2000 F 24 From: Mauricio Black MD PCP: Dr. Antonio Templeton MD Status: REG CLI Study: HIP, UNI W/ Pelvis 2-3 Views Date of Exam: Exam# [id number] Ordering Dr: TONJA DAS EXAM: XR Left Hip With Pelvis When Performed, 2 or 3 Views CLINICAL INDICATION: HIP PAIN TECHNIQUE: Two or three views of the left hip with pelvis when performed. COMPARISON: No relevant prior studies available. FINDINGS: BONES/JOINTS: Unremarkable. No acute fracture. No dislocation. SOFT TISSUES: Unremarkable. RAD/HIP, UNI W/ Pelvis 2-3 Views IMPRESSION: Normal left hip x-rays. [facility] CC: Dr. Antonio Templeton MD; TONJA DAS Tool Clerk: Signed Normal [facility] Hematocrit Auto (Bld) [Volum e fraction]on 11-16-2024 Hematocrit (Bld) [Volume fraction] 39.7 % 37-47 [facility] Hemoglobin measurementon Hemoglobin (Bld) [Mass/Vol] 12.7 g/dL 12.0-15.0 [facility] Hepatitis C antibodyon 11-16 Hepatitis C Antibody Non-Reactive Nonreactive [facility] Comment on above: Reactive: Presumptiv e evidence of antibodies to HCV. Follow CDC recommendations for supplemental testing.Non-Reactive: Antibodies to HCV were not detected; does not exclude the possibility of exposure to HCVReactive Results are presumptive evidence of antibodies to HCV. Follow CDC recommendations for supplemental testing.Order confirmation testing: HCV Quant by PCR testing - HCVPCR #[id number] Non Reactive: < 0.8 Equivocal: >/= 0.8 to < 1.0 Reactive: >/= 1.0The CDC requires that a reactive/equivocal HCV antibody result be sent out for confirmation. HCV Quant by PCR testing. Immature granulocytes/100 WB C Auto (Bld)on 11-16-2024 Immature granulocytes/100 WBC (Bld) 0.200 % 0.0-0.9 [facility] Comment on above: IG% - Immature Granu locytes (promyelocytes, myelocytes and metamyelocytes) > 1% indicates that a LEFT SHIFT is Present. Ironon 11-16-2024 Iron [Mass/Vol] 40 ug/dL Low 50-170 [facility] Comment on above: Order Comment: CBCD Performed By: #### L 3890.6301, L3410.0700, L3100.5500, L3410.9998, L501.6710, L509.1000, L3890.6202, L500.3400, L400.2011, L3890.6102, L3410.0500, L3410.4010, L505.7010, L3100.5800, L501.1105, L3100.5700, L4600.0100, L501.3620, L3410.1110, L100.0100, L503.6150, L3100.7950, L101.9900, L503.6550, L501.0900, M100.2200 ####[facility] [address] [place], [address] Iron (Unsp spec) [Mass/Mass] on 11-16-2024 Iron [Mass/Vol] 40 ug/dL Low 50-170 [facility] Janice-1 antibody assayon 2024 JANICE-1 Antibody <0.2 AI 0.0-0.9 [facility] Comment on above: Previous reported re sult: TNP AIEdited by: INFCE on 11/19/24:1408 AMENDED REPORT 11/19/24 1408 ANTI-JANICE previously reported as: Test not performed Ketones Test strip Ql (U)on 11-16-2024 Ketones Ql (U) Negative Negative [facility] Knee 4 or More Viewson 11-16 Knee 4 or More Views [facility] Services [address] [place] [address] Knee 4 or More Views MR#: [id number] Acct: [id number] Name: HILDA MORGAN Rep #: [id number] : 2000 From: Mauricio Black MD PCP: Dr. Antonio Templeton MD Status: REG CLI Study: Knee 4 or More Views Date of Exam: 11/16/24 Exam# [id number] Ordering Dr: TONJA DAS EXAM: XR Left Knee Complete, 4 or More Views CLINICAL INDICATION: CHRONIC KNEE PAIN HIP PAIN TECHNIQUE: Four or more views of the left knee. COMPARISON: No relevant prior studies available. FINDINGS: BONES/JOINTS: Unremarkable. No acute fracture. No dislocation. SOFT TISSUES: Unremarkable. RAD/Knee 4 or More Views IMPRESSION: No acute fracture. Reading Location: [facility] CC: Dr. Antonio Templeton MD; TONJA DAS Tool Clerk: Signed Normal [facility] Knee 4 or More Views [facility] Imaging Services [address] [place] [address] Knee 4 or More Views MR#: [id number] Acct: [id number] Name: HILDA MORGAN Rep #: [id number] : 2000 From: Mauricio Black MD PCP: Dr. Antonio Templeton MD Status: REG CLI Study: Knee 4 or More Views Date of Exam: 11/16/24 Exam# [id number] Ordering Dr: TONJA DAS EXAM: XR Right Knee Complete, 4 or More Views CLINICAL INDICATION: CHRONIC PAIN OF LEFT KNEE AND HIP TECHNIQUE: Four or more views of the right knee. COMPARISON: No relevant prior studies available. FINDINGS: BONES/JOINTS: Unremarkable. No acute fracture. No dislocation. SOFT TISSUES: Unremarkable. RAD/Knee 4 or More Views IMPRESSION: No acute fracture. Reading Location: [facility] CC: Dr. Antonio Tepmleton MD; TONJA DAS Tool Clerk: Signed Normal [facility] L3890.6102on 11-16-2024 HEP B Surf Ag Non-Reactive Normal Nonreactive [facility] Comment on above: Result Comment: Reac tive: Presumptive evidence of HBV. Repeatedly reactive samples must be confirmed using a neutralization test ([employer] HBsAg Confirmatory Test) Non-Reactive: HBsAg not detected; does not exclude the possibility of exposure to HBV Performed By: #### L 3890.6301, L3410.0700, L3100.5500, L3410.9998, L501.6710, L509.1000, L3890.6202, L500.3400, L400.2011, L3890.6102, L3410.0500, L3410.4010, L505.7010, L3100.5800, L501.1105, L3100.5700, L4600.0100, L501.3620, L3410.1110, L100.0100, L503.6150, L3100.7950, L101.9900, L503.6550, L501.0900, M100.2200 ####[facility] [address] [place], [address] L3890.6202on 11-16-2024 HEP B Surf Ab REAC Normal [facility] Comment on above: Result Comment: <8.5 mIU/mL: Non-Reactive 8.5<= x <11.5 mIU/mL: Indeterminate >=11.5 mIU/mL: Reactive Non Reactive: Inconsistent with immunity less than <10 mIU/mL Reactive: Consistent with immunity greater than or equal to 10 mIU/mL Performed By: #### L 3890.6301, L3410.0700, L3100.5500, L3410.9998, L501.6710, L509.1000, L3890.6202, L500.3400, L400.2010, L3890.6102, L3410.0500, L3410.4010, L505.7010, L3100.5800, L501.1105, L3100.5700, L4600.0100, L501.3620, L3410.1110, L100.0100, L503.6150, L3100.7950, L101.9900, L503.6550, L501.0900, M100.2200 ####[facility] [address] [place], [place], [id number] L3890.6301on 11-16-2024 Hepatitis C Ab Non-Reactive Normal Nonreactive [facility] Comment on above: Result Comment: Reac tive: Presumptive evidence of antibodies to HCV. Follow CDC recommendations for supplemental testing. Non-Reactive: Antibodies to HCV were not detected; does not exclude the possibility of exposure to HCV Reactive Results are presumptive evidence of antibodies to HCV. Follow CDC recommendations for supplemental testing. Order confirmation testing: HCV Quant by PCR testing - HCVPCR #[id number] Non Reactive: < 0.8 Equivocal: >/= 0.8 to < 1.0 Reactive: >/= 1.0 The [facility] requires that a reactive/equivocal HCV antibody result be sent out for confirmation. HCV Quant by PCR testing. Performed By: #### L 3890.6301, L3410.0700, L3100.5500, L3410.9998, L501.6710, L509.1000, L3890.6202, L500.3400, L400.2011, L3890.6102, L3410.0500, L3410.4010, L505.7010, L3100.5800, L501.1105, L3100.5700, L4600.0100, L501.3620, L3410.1110, L100.0100, L503.6150, L3100.7950, L101.9900, L503.6550, L501.0900, M100.2200 ####[facility] [address] [place], [place], [address] Laboratory - Chemistry and C hemistry - challengeon 11-16-2024 AST [Catalytic activity/Vol] 17 U/L <32 [facility] Liver Profileon 11-16-2024 Albumin [Mass/Vol] 4.0 g/dL Normal 3.5-5.0 [facility] Comment on above: Order Comment: CBCD Performed By: #### L 3890.6301, L3410.0700, L3100.5500, L3410.9998, L501.6710, L509.1000, L3890.6202, L500.3400, L400.2011, L3890.6102, L3410.0500, L3410.4010, L505.7010, L3100.5800, L501.1105, L3100.5700, L4600.0100, L501.3620, L3410.1110, L100.0100, L503.6150, L3100.7950, L101.9900, L503.6550, L501.0900, M100.2200 ####[facility] [address] [facility] [place], [place], [id number] ALK PHOS 100 U/L Normal 35-104 [facility] Comment on above: Order Comment: CBCD Performed By: #### L 3890.6301, L3410.0700, L3100.5500, L3410.9998, L501.6710, L509.1000, L3890.6202, L500.3400, L400.2011, L3890.6102, L3410.0500, L3410.4010, L505.7010, L3100.5800, L501.1105, L3100.5700, L4600.0100, L501.3620, L3410.1110, L100.0100, L503.6150, L3100.7950, L101.9900, L503.6550, L501.0900, M100.2200 ####[facility] [address] [place], [address] ALT [Catalytic activity/Vol] 11 U/L Normal <=34 [facility] Comment on above: Order Comment: CBCD Performed By: #### L 3890.6301, L3410.0700, L3100.5500, L3410.9998, L501.6710, L509.1000, L3890.6202, L500.3400, L400.2011, L3890.6102, L3410.0500, L3410.4010, L505.7010, L3100.5800, L501.1105, L3100.5700, L4600.0100, L501.3620, L3410.1110, L100.0100, L503.6150, L3100.7950, L101.9900, L503.6550, L501.0900, M100.2200 ####[facility] [address] [facility]. [place], [place], [id number] AST [Catalytic activity/Vol] 17 U/L Normal <=31 [facility] Comment on above: Order Comment: CBCD Performed By: #### L 3890.6301, L3410.0700, L3100.5500, L3410.9998, L501.6710, L509.1000, L3890.6202, L500.3400, L400.2010, L3890.6102, L3410.0500, L3410.4010, L505.7010, L3100.5800, L501.1105, L3100.5700, L4600.0100, L501.3620, L3410.1110, L100.0100, L503.6150, L3100.7950, L101.9900, L503.6550, L501.0900, M100.2200 ####[facility] [address] [facility]. [place], [place], [id number] Bilirubin [Mass/Vol] 0.18 mg/dL Normal 0.00-1.30 [facility] Comment on above: Order Comment: CBCD Performed By: #### L 3890.6301, L3410.0700, L3100.5500, L3410.9998, L501.6710, L509.1000, L3890.6202, L500.3400, L400.2011, L3890.6102, L3410.0500, L3410.4010, L505.7010, L3100.5800, L501.1105, L3100.5700, L4600.0100, L501.3620, L3410.1110, L100.0100, L503.6150, L3100.7950, L101.9900, L503.6550, L501.0900, M100.2200 ####[facility] [address] [facility]. [place], [place], [id number] Bilirubin.direct [Mass/Vol] 0.08 mg/dL Normal 0.00-0.30 [facility] Comment on above: Order Comment: CBCD Performed By: #### L 3890.6301, L3410.0700, L3100.5500, L3410.9998, L501.6710, L509.1000, L3890.6202, L500.3400, L400.2010, L3890.6102, L3410.0500, L3410.4010, L505.7010, L3100.5800, L501.1105, L3100.5700, L4600.0100, L501.3620, L3410.1110, L100.0100, L503.6150, L3100.7950, L101.9900, L503.6550, L501.0900, M100.2200 ####[facility] [address] [facility] [place], [place], [id number] Globulin (S) [Mass/Vol] 3.6 g/dL Normal 2.2-4.2 [facility] Comment on above: Order Comment: CBCD Performed By: #### L 3890.6301, L3410.0700, L3100.5500, L3410.9998, L501.6710, L509.1000, L3890.6202, L500.3400, L400.2011, L3890.6102, L3410.0500, L3410.4010, L505.7010, L3100.5800, L501.1105, L3100.5700, L4600.0100, L501.3620, L3410.1110, L100.0100, L503.6150, L3100.7950, L101.9900, L503.6550, L501.0900, M100.2200 ####[facility] [address] [place], [place], [id number] T PROT 7.6 g/dL Normal 5.9-8.4 [facility] Comment on above: Order Comment: CBCD Performed By: #### L 3890.6301, L3410.0700, L3100.5500, L3410.9998, L501.6710, L509.1000, L3890.6202, L500.3400, L400.2011, L3890.6102, L3410.0500, L3410.4010, L505.7010, L3100.5800, L501.1105, L3100.5700, L4600.0100, L501.3620, L3410.1110, L100.0100, L503.6150, L3100.7950, L101.9900, L503.6550, L501.0900, M100.2200 ####[facility] [address] [place], [place], [id number] Lymphocytes Auto (Unsp spec) [#/Vol]on 11-16-2024 Lymphocytes (Bld) [#/Vol] 2.94 10*3/uL 0.83-4.51 [facility] Lymphocytes/100 WBC Auto (Un sp spec)on 11-16-2024 Lymphocytes/100 WBC (Bld) 30.6 % 19-41 [facility] MCV (mean corpuscular volume ) determinationon 11-16-2024 MCV (RBC) [Entitic vol] 87.1 fL 81-99 [facility] Mean corpuscular hemoglobin (MCH) determinationon 11-16-2024 MCH (RBC) [Entitic mass] 27.9 pg 27.0-32.0 [facility] Mean corpuscular hemoglobin concentration (MCHC) determinationon 11-16-2024 MCHC (RBC) [Mass/Vol] 32.0 g/dL 32-36 [facility] Mean platelet volume determi nationon 11-16-2024 Platelet mean volume (Bld) [Entitic vol] 11.4 fL 6.2-12.0 [facility] Monocyte percentageon 2024 Monocytes/100 WBC (Bld) 4.3 % 0-10 [facility] Neutrophil percentageon - Neutrophils/100 WBC (Bld) 63.7 % 47-70 [facility] Nitrite Test strip Ql (U)on 11-16-2024 Nitrite Ql (U) Negative Negative [facility] Nucleated red blood cell per centageon 11-16-2024 Nucleated RBC/100 WBC (Bld) [Ratio] 0 % 0-5 [facility] PTH intacton 11-16-2024 Parathyroid Hormone (Intact) 42 pg/mL [facility] PTHINon 11-16-2024 PTH 42 pg/mL Normal [facility] Comment on above: Performed By: #### L 3890.6301, L3410.0700, L3100.5500, L3410.9998, L501.6710, L509.1000, L3890.6202, L500.3400, L400.2011, L3890.6102, L3410.0500, L3410.4010, L505.7010, L3100.5800, L501.1105, L3100.5700, L4600.0100, L501.3620, L3410.1110, L100.0100, L503.6150, L3100.7950, L101.9900, L503.6550, L501.0900, M100.2200 ####[facility] [address] [place], [address] Platelet counton 11-16-2024 Platelets (Bld) [#/Vol] 345 10*3/uL 150-450 [facility] Protein Test strip Ql (U)on 11-16-2024 Protein Ql (U) 15 mg/dl High Negative [facility] Protein+Creatinine Ratio,Uri neon 11-16-2024 PROT:CRE RATIO 101 mg/g CRE Normal 0-200 [facility] Comment on above: Performed By: #### L 3890.6301, L3410.0700, L3100.5500, L3410.9998, L501.6710, L509.1000, L3890.6202, L500.3400, L400.2011, L3890.6102, L3410.0500, L3410.4010, L505.7010, L3100.5800, L501.1105, L3100.5700, L4600.0100, L501.3620, L3410.1110, L100.0100, L503.6150, L3100.7950, L101.9900, L503.6550, L501.0900, M100.2200 ####[facility] [address] [place], [address] Protein (U) [Mass/Vol] 9.3 mg/dL Normal 0.0-12.0 [facility] Comment on above: Performed By: #### L 3890.6301, L3410.0700, L3100.5500, L3410.9998, L501.6710, L509.1000, L3890.6202, L500.3400, L400.2011, L3890.6102, L3410.0500, L3410.4010, L505.7010, L3100.5800, L501.1105, L3100.5700, L4600.0100, L501.3620, L3410.1110, L100.0100, L503.6150, L3100.7950, L101.9900, L503.6550, L501.0900, M100.2200 ####[facility] [address] [facility]. [place], [place], [id number] UR CREAT 92.60 mg/dL Normal 28.00-217.00 [facility] [facility] Comment on above: Performed By: #### L 3890.6301, L3410.0700, L3100.5500, L3410.9998, L501.6710, L509.1000, L3890.6202, L500.3400, L400.2011, L3890.6102, L3410.0500, L3410.4010, L505.7010, L3100.5800, L501.1105, L3100.5700, L4600.0100, L501.3620, L3410.1110, L100.0100, L503.6150, L3100.7950, L101.9900, L503.6550, L501.0900, M100.2200 ####[facility] [address] [place], [place], [phone] Protein/Creatinine (U) [Mass ratio]on 11-16-2024 Urine Protein/Creatinine Ratio 101 mg/g CRE 0-200 [facility] RBC Auto (Bld) [#/Vol]on RBC (Bld) [#/Vol] 4.56 10*6/uL 4.2-5.4 [facility] HOBBER abon 11-16-2024 HOBBER Antibody 0.2 AI 0.0-0.9 [facility] Comment on above: Previous reported re sult: TNP AIEdited by: PATRICIA on 11/19/24:1408 AMENDED REPORT 11/19/24 1408 HOBBER Ab previously reported as: Test not performed Rheumatoid Factoron 11-17-19 RHEUMATOID FAC < 10.0 Normal <15 [facility] Comment on above: Performed By: #### L 3890.6301, L3410.0700, L3100.5500, L3410.9998, L501.6710, L509.1000, L3890.6202, L500.3400, L400.2010, L3890.6102, L3410.0500, L3410.4010, L505.7010, L3100.5800, L501.1105, L3100.5700, L4600.0100, L501.3620, L3410.1110, L100.0100, L503.6150, L3100.7950, L101.9900, L503.6550, L501.0900, M100.2200 ####[facility] [address] [place], [address] Rheumatoid factor Ql (S)on 0 11-16-2024 Rheumatoid Factor < 10.0 IU/mL <15 [facility] S-I Jts 3 or More Viewson S-I Jts 3 or More Views [facility] Imaging Services [address] [place] [address] S-I Jts 3 or More Views MR#: [id number] Acct: [id number] Name: HILDA MORGAN Rep #: [id number] : 2000 F 24 From: Mauricio Black MD PCP: Dr. Antonio Templeton MD Status: REG CLI Study: S-I Jts 3 or More Views Date of Exam: 11/16/24 Exam# [id number] Ordering Dr: TONJA DAS EXAM: XR S-I Jts 3 CLINICAL INDICATION: CHRONIC PAIN PAIN IN LEFT HIP AND KNEE TECHNIQUE: 3 views of the sacroiliac joints. COMPARISON: No relevant prior studies available. FINDINGS: Mild degenerative change of the sacroiliac joints, bilaterally. RAD/S-I Jts 3 or More Views IMPRESSION: Degenerative changes as above. Reading [facility] CC: Dr. Antonio Templeton MD; TONJA DAS Tool Clerk: Signed Normal [facility] SCL-70 extractable nuclear A b Qn (S)on 11-16-2024 Scl-70 (Scleroderma) Antibody <0.2 AI 0.0-0.9 [facility] Serum Creatinine AND GFRon 0 11-16-2024 Creatinine [Mass/Vol] 0.71 mg/dL Normal 0.70-1.20 [facility] Comment on above: Performed By: #### L 3890.6301, L3410.0700, L3100.5500, L3410.9998, L501.6710, L509.1000, L3890.6202, L500.3400, L400.2011, L3890.6102, L3410.0500, L3410.4010, L505.7010, L3100.5800, L501.1105, L3100.5700, L4600.0100, L501.3620, L3410.1110, L100.0100, L503.6150, L3100.7950, L101.9900, L503.6550, L501.0900, M100.2200 ####[facility] [address] [place], [place], [phone] GFR/1.73 sq M.predicted among non-blacks MDRD (S/P/Bld) [Vol rate/Area] 120 mL/min/{1.73_m2} Normal >60 [facility] Comment on above: Result Comment: mL/m in/1.73m2 CKD-EPI Creatinine Equation (2020) Performed By: #### L 3890.6301, L3410.0700, L3100.5500, L3410.9998, L501.6710, L509.1000, L3890.6202, L500.3400, L400.2011, L3890.6102, L3410.0500, L3410.4010, L505.7010, L3100.5800, L501.1105, L3100.5700, L4600.0100, L501.3620, L3410.1110, L100.0100, L503.6150, L3100.7950, L101.9900, L503.6550, L501.0900, M100.2200 ####[facility] [address] [facility] [place], [place], [phone] Serum creatinine measurement (mass/volume)on 11-16-2024 Creatinine [Mass/Vol] 0.71 mg/dL 0.70-1.20 [facility] Serum globulin measurementon 11-16-2024 Globulin (S) [Mass/Vol] 3.6 g/dL 2.2-4.2 [facility] Serum or plasma alanine martinez otransferase (ALT) measurementon 11-16-2024 ALT [Catalytic activity/Vol] 11 U/L <35 [facility] Serum or plasma albumin fred urement (mass/volume)on 11-16-2024 Albumin [Mass/Vol] 4.0 g/dL 3.5-5.0 [facility] Serum or plasma alkaline hal sphatase measurementon 11-16-2024 ALP [Catalytic activity/Vol] 100 U/L 35-104 [facility] Serum or plasma creatine kin ase activityon 11-16-2024 CK [Catalytic activity/Vol] 138 U/L 24-195 [facility] Serum or plasma ferritin thad surement (mass/volume)on 11-16-2024 Ferritin [Mass/Vol] 266 ng/mL 22-378 [facility] Templeton antibody assayon 11-16 SM Antibody <0.2 AI 0.0-0.9 [facility] Comment on above: Previous reported re sult: TNP AIEdited by: PATRICIA on 11/19/24:1408 AMENDED REPORT 11/19/24 1408 JARETH Ab previously reported as: Test not performed Total proteinon 11-16-2024 Protein [Mass/Vol] 7.6 g/dL 5.9-8.4 [facility] Urinalysis, Routine (Dipstic k)on 11-16-2024 BILIRUBIN URINE Negative Normal Negative [facility] Comment on above: Order Comment: CBCDU rine, Random Performed By: #### L 3890.6301, L3410.0700, L3100.5500, L3410.9998, L501.6710, L509.1000, L3890.6202, L500.3400, L400.2011, L3890.6102, L3410.0500, L3410.4010, L505.7010, L3100.5800, L501.1105, L3100.5700, L4600.0100, L501.3620, L3410.1110, L100.0100, L503.6150, L3100.7950, L101.9900, L503.6550, L501.0900, M100.2200 ####[facility] [address] [place], [place], [phone] Clarity (U) Sl. Cloudy Normal Clear [facility] Comment on above: Order Comment: CBCDU rine, Random Performed By: #### L 3890.6301, L3410.0700, L3100.5500, L3410.9998, L501.6710, L509.1000, L3890.6202, L500.3400, L400.2011, L3890.6102, L3410.0500, L3410.4010, L505.7010, L3100.5800, L501.1105, L3100.5700, L4600.0100, L501.3620, L3410.1110, L100.0100, L503.6150, L3100.7950, L101.9900, L503.6550, L501.0900, M100.2200 ####[facility] [address] [place], [place], [phone] Color (U) Yellow Normal Yellow [facility] Comment on above: Order Comment: CBCDU rine, Random Performed By: #### L 3890.6301, L3410.0700, L3100.5500, L3410.9998, L501.6710, L509.1000, L3890.6202, L500.3400, L400.2011, L3890.6102, L3410.0500, L3410.4010, L505.7010, L3100.5800, L501.1105, L3100.5700, L4600.0100, L501.3620, L3410.1110, L100.0100, L503.6150, L3100.7950, L101.9900, L503.6550, L501.0900, M100.2200 ####[facility] [address] [place], [place], [phone] GLUCOSE, UR Normal Normal Normal [facility] Comment on above: Order Comment: CBCDU rine, Random Performed By: #### L 3890.6301, L3410.0700, L3100.5500, L3410.9998, L501.6710, L509.1000, L3890.6202, L500.3400, L400.2011, L3890.6102, L3410.0500, L3410.4010, L505.7010, L3100.5800, L501.1105, L3100.5700, L4600.0100, L501.3620, L3410.1110, L100.0100, L503.6150, L3100.7950, L101.9900, L503.6550, L501.0900, M100.2200 ####[facility] [address] [place], [place], [phone] KETONE UR Negative Normal Negative [facility] Comment on above: Order Comment: CBCDU rine, Random Performed By: #### L 3890.6301, L3410.0700, L3100.5500, L3410.9998, L501.6710, L509.1000, L3890.6202, L500.3400, L400.2011, L3890.6102, L3410.0500, L3410.4010, L505.7010, L3100.5800, L501.1105, L3100.5700, L4600.0100, L501.3620, L3410.1110, L100.0100, L503.6150, L3100.7950, L101.9900, L503.6550, L501.0900, M100.2200 ####[facility] [address] [place], [address] LEUK ESTERASE Negative Normal Negative [facility] Comment on above: Order Comment: CBCDU rine, Random Performed By: #### L 3890.6301, L3410.0700, L3100.5500, L3410.9998, L501.6710, L509.1000, L3890.6202, L500.3400, L400.2011, L3890.6102, L3410.0500, L3410.4010, L505.7010, L3100.5800, L501.1105, L3100.5700, L4600.0100, L501.3620, L3410.1110, L100.0100, L503.6150, L3100.7950, L101.9900, L503.6550, L501.0900, M100.2200 ####[facility] [address] [place], [place], [phone] Nitrite Ql (U) Negative Normal Negative [facility] Comment on above: Order Comment: CBCDU rine, Random Performed By: #### L 3890.6301, L3410.0700, L3100.5500, L3410.9998, L501.6710, L509.1000, L3890.6202, L500.3400, L400.2011, L3890.6102, L3410.0500, L3410.4010, L505.7010, L3100.5800, L501.1105, L3100.5700, L4600.0100, L501.3620, L3410.1110, L100.0100, L503.6150, L3100.7950, L101.9900, L503.6550, L501.0900, M100.2200 ####[facility] [address] [place], [place], [id number] OCCULT BLOOD-UR Negative Normal Negative [facility] Comment on above: Order Comment: CBCDU rine, Random Performed By: #### L 3890.6301, L3410.0700, L3100.5500, L3410.9998, L501.6710, L509.1000, L3890.6202, L500.3400, L400.2011, L3890.6102, L3410.0500, L3410.4010, L505.7010, L3100.5800, L501.1105, L3100.5700, L4600.0100, L501.3620, L3410.1110, L100.0100, L503.6150, L3100.7950, L101.9900, L503.6550, L501.0900, M100.2200 ####[facility] [address] [place], [place], [id number] pH UR 7.0 Normal 5.0 - 8.0 [facility] Comment on above: Order Comment: CBCDU rine, Random Performed By: #### L 3890.6301, L3410.0700, L3100.5500, L3410.9998, L501.6710, L509.1000, L3890.6202, L500.3400, L400.2010, L3890.6102, L3410.0500, L3410.4010, L505.7010, L3100.5800, L501.1105, L3100.5700, L4600.0100, L501.3620, L3410.1110, L100.0100, L503.6150, L3100.7950, L101.9900, L503.6550, L501.0900, M100.2200 ####[facility] [address] [place], [place], [phone] PROT DIPSTX 15 mg/dl Abnormal Negative [facility] Comment on above: Order Comment: CBCDU rine, Random Performed By: #### L 3890.6301, L3410.0700, L3100.5500, L3410.9998, L501.6710, L509.1000, L3890.6202, L500.3400, L400.2010, L3890.6102, L3410.0500, L3410.4010, L505.7010, L3100.5800, L501.1105, L3100.5700, L4600.0100, L501.3620, L3410.1110, L100.0100, L503.6150, L3100.7950, L101.9900, L503.6550, L501.0900, M100.2200 ####[facility] [address] [place], [place], [id number] SP.GR. DIPSTX 1.010 Normal 1.002-1.030 [facility] Comment on above: Order Comment: CBCDU rine, Random Performed By: #### L 3890.6301, L3410.0700, L3100.5500, L3410.9998, L501.6710, L509.1000, L3890.6202, L500.3400, L400.2011, L3890.6102, L3410.0500, L3410.4010, L505.7010, L3100.5800, L501.1105, L3100.5700, L4600.0100, L501.3620, L3410.1110, L100.0100, L503.6150, L3100.7950, L101.9900, L503.6550, L501.0900, M100.2200 ####[facility] [address] [place], [place], [phone] UROBILI Normal Normal Normal [facility] Comment on above: Order Comment: CBCDU rine, Random Performed By: #### L 3890.6301, L3410.0700, L3100.5500, L3410.9998, L501.6710, L509.1000, L3890.6202, L500.3400, L400.2011, L3890.6102, L3410.0500, L3410.4010, L505.7010, L3100.5800, L501.1105, L3100.5700, L4600.0100, L501.3620, L3410.1110, L100.0100, L503.6150, L3100.7950, L101.9900, L503.6550, L501.0900, M100.2200 ####[facility] [address] [place], [address] Urine blood detectionon 10-28 Urine Occult Blood Negative Negative [facility] Urine clarityon 11-16-2024 Clarity (U) Sl. Cloudy Clear [facility] Urine color determinationon 11-16-2024 Color (U) Yellow Yellow [facility] Urine cultureon 11-16-2024 Bacteria identified Cx Nom (U) Culture exhibits no growth. [facility] Urine leukocyte esterase det ection by dipstickon 11-16-2024 Leukocyte esterase Test strip Ql (U) Negative Negative [facility] Urine pHon 11-16-2024 pH (U) 7.0 [pH] 5.0 - 8.0 [facility] Urine protein measurement (m ass/volume)on 11-16-2024 Protein (U) [Mass/Vol] 9.3 mg/dL 0.0-12.0 [facility] Urine specific gravity measu rementon 11-16-2024 Specific gravity (U) [Rel density] 1.010 1.002-1.030 [facility] Urobilinogen Ql (U)on 2024 Urine Urobilinogen Normal mg/dl Normal [facility] White blood cell (WBC) count on 11-16-2024 WBC (Bld) [#/Vol] 9.6 10*3/uL 4.4-11.0 [facility] Gastroenterology Visit Repor ton 10-12-2024 Gastroenterology Visit Report [facility] Gastroenterology [address] [place] [address] OFFICE VISIT Date of Service: 10/12/24 MR#: [id number] Acct: [id number] Name: HILDA MORGAN Rep #: [id number] : 2000 Provider: RAYSHAWN Funes Age/Sex: 24/F Location[place] [facility] Status: Signed Intake Vital Signs 01/31/24 15:11 Height 5 ft 6 in Intake Visit Reasons: 3 M FU Chief Complaint: IBS Allergies amoxicillin (From Augmentin) Allergy (Verified 10/12/24 12:31) Other clavulanic acid (From Augmentin) Allergy (Verified 10/12/24 12:31) Other Medications ???Medication ???Instructions ???Recorded ???Confirmed ???Type hyoscyamine sulfate 0.125 mg 0.125 mg PO BID-QID PRN dyspepsia 11/19/21 10/12/24 Rx disintegrating tablet #30 tabs ascorbic acid (vitamin C) 500 mg 500 mg PO BID 11/08/22 10/12/24 Hi story capsule multivitamin 1 tab PO DAILY 11/08/22 10/12/24 H istory tamsulosin 0.4 mg capsule 0.4 mg PO Q24H PRN KID STON 10/12/24 History vitamin B complex (Vitamins B 1 cap PO DAILY 09/05/23 10/12/24 H istory Complex capsule) ferrous sulfate 325 mg (65 mg 325 mg PO DAILY PRN LOW IRON 01/0110/12/24 History iron) tablet meclizine 12.5 mg tablet 12.5 mg PO Q8H PRN PRN dizziness 0 01/02/24 10/12/24 History norgestimate 0.25 mg-ethinyl 1 tab PO DAILY #84 tabs 01/31/24 0 10/12/24 Rx estradiol 35 mcg tablet (Sprintec (28)) prednisone 20 mg tablet 10 mg PO DAILY 07/13/24 10/12/24 H istory lisdexamfetamine 30 mg capsule 30 mg PO QAM 3 months #90 caps 10/12/24 Rx (Vyvanse) pantoprazole 40 mg tablet,delayed 40 mg PO QAM #90 tabs 10/12/24 Rx release PFSH Medical History Ureteral stone Wears glasses Anxiety Alcohol use Anemia Back pain Syncope History of IBS Gastric reflux Non-smoker Accidental puncture and laceration of skin and subcutaneous tissue during a dermatologic procedure Contact with and (suspected) exposure to other viral communicable diseases URI (upper respiratory infection) Iron deficiency Vertigo IBS (irritable bowel syndrome) Social History number of children: 0 current occupational status: employed Smoking Status: Never smoker alcohol intake: current alcohol intake frequency: a few times a month Alcohol type: wine substance use type: does not use diet: vegetarian lorenzo/sabianism: Jehovah Witness seatbelt use: always do you feel safe at home: Yes additional social history: Works at [employer] HPI HPI Chief Complaint: IBS Details: HILDA MORGAN, is a 24 F who presents to the office today for f/u. OV 02.01.23 Recent onset of upper abd burning, past month or so. Some better with TUMS. Never had this before. No heartburn or acid reflux. No dysphagia. Some nausea in AM, no vomiting. The burning pain isn't postprandial, but she thinks it may be worse with spicy food and red sauce. Daily celebrex for joint pains. Chronic pains in lower abd especially RLQ related to IBS, wasn't as bothersome when she was on alosetron, couldn't get that med due to lack of insurance. Long hx LUNA, initially due to heavy menses, now that's not an issue on IUD--no menses. Takes MVI w/ iron as well as ferrous sulfate plus vit C. Occas BRBPR that she attributes to internal hemorrhoids. No melena. Has daily BM, can be 3-4x per day with IBS flare. Fasts at work, eats 1-2 meals per day. Takes hyoscyamine prn for IBS, it is helpful. Prior colonoscopy, no prior EGD OV 12.16.23 C/o multiple episodes diarrhea daily, abdominal pain LLQ daily. Watery loose stool with fast foods, meat or vegetables. Worsened gas and bloating over last month. Stopped iron supplement d/t constipation. Burning in LUQ with spicy foods, pantoprazole is helpful. abd/pelvis CT 12.27.23 Stable mild left hydronephrosis due to a 4.6 mm calculus in the distal portion of the left ureter. This is unchanged. Mild hepatomegaly. OV 7 pt reports that she is feeling much better on the prednisone. Pt reports multiple loose bm per day, but states this is likely due to menstruation. OV 07.13.24 pt reports that she continues to have nausea in the morning, but once she eats breakfast she feels better. Has been on 10mg of prednisone for about a week and reports extreme fatigue. Pt reports constant RLQ pain and constant gas/bloating. Pt reports that pantoprazole is helpful for HB, but will occasional have breakthrough symptoms if she eats something spicy. OV 2.14.25 Pt has been doing well from a GI stand point. She still has diarrhea and abd pain on occasion but she deals with this. She is no longer having any heartburn on pantoprazole. She has an appointment with (more content not included)... Normal [facility] CBC W/Diff, Automatedon 06-29 PLT EST ADEQUATE Normal ADEQ [facility] Comment on above: Performed By: #### L 500.4050, L501.6710, L300.3900, L101.9900, L100.0100 #### [facility] [address] [place], [address] RED CELL MORPH NORM C+C Normal NORM C C [facility] Comment on above: Performed By: #### L 500.4050, L501.6710, L300.3900, L101.9900, L100.0100 #### [facility] [address] [place], [address] SMEAR COMMENT SCANNED Normal [facility] Comment on above: Performed By: #### L 500.4050, L501.6710, L300.3900, L101.9900, L100.0100 #### [facility] [address] [place], [address] CRPon 07-13-2024 C-REACTIVE PROT 47.60 mg/L High 0.0-3.0 [facility] Comment on above: Result Comment: C-Re active Protein (CRP) provides useful information for the diagnosis, therapy and monitoring of inflammatory processes and associated diseases. For the evaluation of Relative Risk for Cardiovascular Disease, a High Sensitivity CRP (HSCRP) should be ordered. Performed By: #### L 500.4050, L501.6710, L300.3900, L101.9900, L100.0100 #### [facility] [address] [place], [address] Comprehensive Metabolic Prof ilon 07-13-2024 Albumin [Mass/Vol] 3.1 g/dL Low 3.2-5.0 [facility] Comment on above: Performed By: #### L 500.4050, L501.6710, L300.3900, L101.9900, L100.0100 #### [facility] [address] [place], [address] Albumin/Globulin [Mass ratio] 0.8 {ratio} Low 0.9-2.4 [facility] Comment on above: Performed By: #### L 500.4050, L501.6710, L300.3900, L101.9900, L100.0100 #### [facility] [address] [place], [address] ALK P 59 U/L Normal 45-117 [facility] Comment on above: Performed By: #### L 500.4050, L501.6710, L300.3900, L101.9900, L100.0100 #### [facility] [address] [place], [address] ALT [Catalytic activity/Vol] 19 U/L Normal 13-56 [facility] Comment on above: Performed By: #### L 500.4050, L501.6710, L300.3900, L101.9900, L100.0100 #### [facility] [address] [place], [address] AST [Catalytic activity/Vol] 10 U/L Low 15-37 [facility] Comment on above: Performed By: #### L 500.4050, L501.6710, L300.3900, L101.9900, L100.0100 #### [facility] [address] [place], [address] Bilirubin [Mass/Vol] 0.20 mg/dL Normal 0.20-1.00 [facility] Comment on above: Result Comment: For patients on eltrombopag therapy, use of Dimension [place] TBIL is not recommended. Performed By: #### L 500.4050, L501.6710, L300.3900, L101.9900, L100.0100 #### [facility] [address] [place], [address] BUN/CRE 12.7 RATIO Normal 10-20 [facility] Comment on above: Performed By: #### L 500.4050, L501.6710, L300.3900, L101.9900, L100.0100 #### [facility] [address] [place], [address] CA,Total 9.3 mg/dL Normal 8.5-10.1 [facility] Comment on above: Performed By: #### L 500.4050, L501.6710, L300.3900, L101.9900, L100.0100 #### [facility] [address] [place], [address] Chloride [Moles/Vol] 106 mmol/L Normal 98-107 [facility] Comment on above: Performed By: #### L 500.4050, L501.6710, L300.3900, L101.9900, L100.0100 #### [facility] [address] [place], [address] CO2 [Moles/Vol] 28.0 mmol/L Normal 21.0-32.0 [facility] Comment on above: Performed By: #### L 500.4050, L501.6710, L300.3900, L101.9900, L100.0100 #### [facility] [address] [place], [address] Creatinine [Mass/Vol] 0.86 mg/dL Normal 0.55-1.02 [facility] Comment on above: Result Comment: The validity of the calculated GFR GFRAA in patients over 70 years has not been determined. Clinical correlation is essential. Performed By: #### L 500.4050, L501.6710, L300.3900, L101.9900, L100.0100 #### [facility] [address] [place], [address] EST GFR - AA 103 mL/min Normal >60 [facility] Comment on above: Result Comment: Afri can Ivorian GFR Calc Performed By: #### L 500.4050, L501.6710, L300.3900, L101.9900, L100.0100 #### [facility] [address] [place], [address] GAP 5 Normal 5-15 [facility] Comment on above: Performed By: #### L 500.4050, L501.6710, L300.3900, L101.9900, L100.0100 #### [facility] [address] [place], [address] GFR/1.73 sq M.predicted among non-blacks MDRD (S/P/Bld) [Vol rate/Area] 85 mL/min/{1.73_m2} Normal >60 [facility] Comment on above: Result Comment: Non- GFR Calc Performed By: #### L 500.4050, L501.6710, L300.3900, L101.9900, L100.0100 #### [facility] [address] [place], [address] Globulin (S) [Mass/Vol] 4.1 g/dL Normal 2.2-4.2 [facility] Comment on above: Performed By: #### L 500.4050, L501.6710, L300.3900, L101.9900, L100.0100 #### [facility] [address] [place], [address] Glucose [Mass/Vol] 86 mg/dL Normal 74-106 [facility] Comment on above: Performed By: #### L 500.4050, L501.6710, L300.3900, L101.9900, L100.0100 #### [facility] [address] [place], [address] Potassium [Moles/Vol] 3.8 mmol/L Normal 3.5-5.1 [facility] Comment on above: Performed By: #### L 500.4050, L501.6710, L300.3900, L101.9900, L100.0100 #### [facility] [address] [place], [address] Sodium [Moles/Vol] 139 mmol/L Normal 136-145 [facility] Comment on above: Performed By: #### L 500.4050, L501.6710, L300.3900, L101.9900, L100.0100 #### [facility] [address] [place], [address] T PROT 7.2 g/dL Normal 6.4-8.2 [facility] Comment on above: Performed By: #### L 500.4050, L501.6710, L300.3900, L101.9900, L100.0100 #### [facility] [address] [place], [address] Urea nitrogen [Mass/Vol] 11 mg/dL Normal 7-18 [facility] Comment on above: Performed By: #### L 500.4050, L501.6710, L300.3900, L101.9900, L100.0100 #### [facility] [address] [place], [address] Erythrocyte Sed Rateon 07-13 SED RATE 15 mm/hr Normal 0-30 [facility] Comment on above: Performed By: #### L 500.4050, L501.6710, L300.3900, L101.9900, L100.0100 #### [facility] [address] [place], [address] Gastroenterology Visit Repor ton 07-13-2024 Gastroenterology Visit Report [facility]enter[facility] [address] [address] OFFICE VISIT Date of Service: 07/13/24 MR#: [id number] Acct: [id number] Name: HILDA MORGAN Rep #: [id number] : 2000 Provider: Timothy Thompson DO Age/Sex: 24/F Location: [facility] [place] Status: Signed Intake Vital Signs 01/31/24 15:11 Height 5 ft 6 in Intake Visit Reasons: 3 M FU Allergies amoxicillin (From Augmentin) Allergy (Verified 01/31/24 15:11) Other clavulanic acid (From Augmentin) Allergy (Verified 01/31/24 15:11) Other Medications ???Medication ???Instructions ???Recorded ???Confirmed ???Type hyoscyamine sulfate 0.125 mg 0.125 mg PO BID-QID PRN dyspepsia 11/19/21 07/13/24 Rx disintegrating tablet #30 tabs ascorbic acid (vitamin C) 500 mg 500 mg PO BID 11/08/22 07/13/24 History capsule multivitamin 1 tab PO DAILY 11/08/22 07/13/24 History tamsulosin 0.4 mg capsule 0.4 mg PO Q24H PRN KID STON 09/05/23 07/13/24 History vitamin B complex (Vitamins B 1 cap PO DAILY 09/05/23 07/13/24 History Complex capsule) ferrous sulfate 325 mg (65 mg 325 mg PO DAILY PRN LOW IRON 01/02/24 07/13/24 History iron) tablet meclizine 12.5 mg tablet 12.5 mg PO Q8H PRN PRN dizziness 01/02/24 07/13/24 History norgestimate 0.25 mg-ethinyl 1 tab PO DAILY #84 tabs 01/31/24 07/13/24 Rx estradiol 35 mcg tablet (Sprintec (28)) lisdexamfetamine 30 mg capsule 30 mg PO QAM 1 month #30 caps 07/13/24 07/13/24 Rx (Vyvanse) pantoprazole 40 mg tablet,delayed 40 mg PO QAM #90 tabs 07/13/24 07/13/24 Rx release prednisone 20 mg tablet 10 mg PO DAILY 07/13/24 History PFSH Medical History Ureteral stone Wears glasses Anxiety Alcohol use Anemia Back pain Syncope History of IBS Gastric reflux Non-smoker Accidental puncture and laceration of skin and subcutaneous tissue during a dermatologic procedure Contact with and (suspected) exposure to other viral communicable diseases URI (upper respiratory infection) Iron deficiency Vertigo IBS (irritable bowel syndrome) Social History (Updated 01/31/24 @ 15:23 by Paula Shaw) number of children: 0 current occupational status: employed Smoking Status: Never smoker alcohol intake: current alcohol intake frequency: a few times a month Alcohol type: wine substance use type: does not use diet: vegetarian lorenzo/sabianism: Jehovah Witness seatbelt use: always do you feel safe at home: Yes additional social history: Works at [employer] HPI HPI Details: HILDA MORGAN, is a 24 F who presents to the office today for follow up. OV 02.01.23 Recent onset of upper abd burning, past month or so. Some better with TUMS. Never had this before. No heartburn or acid reflux. No dysphagia. Some nausea in AM, no vomiting. The burning pain isn't postprandial, but she thinks it may be worse with spicy food and red sauce. Daily celebrex for joint pains. Chronic pains in lower abd especially RLQ related to IBS, wasn't as bothersome when she was on alosetron, couldn't get that med due to lack of insurance. Long hx LUNA, initially due to heavy menses, now that's not an issue on IUD--no menses. Takes MVI w/ iron as well as ferrous sulfate plus vit C. Occas BRBPR that she attributes to internal hemorrhoids. No melena. Has daily BM, can be 3-4x per day with IBS flare. Fasts at work, eats 1-2 meals per day. Takes hyoscyamine prn for IBS, it is helpful. Prior colonoscopy, no prior EGD OV 12.16.23 C/o multiple episodes diarrhea daily, abdominal pain LLQ daily. Watery loose stool with fast foods, meat or vegetables. Worsened gas and bloating over last month. Stopped iron supplement d/t constipation. Burning in LUQ with spicy foods, pantoprazole is helpful. abd/pelvis CT 12.27.23 Stable mild left hydronephrosis due to a 4.6 mm calculus in the distal portion of the left ureter. This is unchanged. Mild hepatomegaly. OV 03.16.24 pt reports that she is feeling much better on the prednisone. Pt reports multiple loose bm per day, but states this is likely due to menstruation. OV 07.13.24 pt reports that she continues to have nausea in the morning, but once she eats breakfast she feels better. Has been on 10mg of prednisone for about a week and reports extreme fatigue. Pt reports constant RLQ pain and constant gas/bloating. Pt reports that pantoprazole is helpful for HB, but will occasional have breakthrough symptoms if she eats something spicy. ESR / CRP 12.16.23 57 / 41.20 7.1.24 17 / 37.4 9.10.24 8 / 17.1 10.29.24 30 / 26 11.15.24 15 / 47.6 ROS Const Constitutional: Positive for fatigue, headache(s) and weight change (weight gain); No fever(s) ENT ENT: Positive for headache(s); No difficulty swallowing (more content not included)... Normal [facility] Prothrombin Time w/INRon INR Coag (PPP) [Relative time] 1.0 {INR} Normal [facility] Comment on above: Performed By: #### L 500.4050, L501.6710, L300.3900, L101.9900, L100.0100 #### [facility] [address] [place], [place], [id number] PT Coag (PPP) [Time] 13.6 s Normal 11.7-14.9 [facility] Comment on above: Performed By: #### L 500.4050, L501.6710, L300.3900, L101.9900, L100.0100 #### [facility] [address] [place], [address] BERT + Protein Elect, Serumon 06-27-2024 Albumin [Mass/Vol] 3.6 g/dL Normal 2.9-4.4 [facility] Comment on above: Order Comment: N Performed By: #### L 101.9900, L3100.3425, L100.0100, L503.6550, L501.6710, L500.4050 ####[facility] [address] [place], [address] Albumin/Globulin [Mass ratio] 1.2 {ratio} Normal 0.7-1.7 [facility] Comment on above: Order Comment: N Performed By: #### L 101.9900, L3100.3425, L100.0100, L503.6550, L501.6710, L500.4050 ####[facility] [address] [place], [address] JVQPP-6-RCEA 0.3 g/dL Normal 0.0-0.4 [facility] Comment on above: Order Comment: N Performed By: #### L 101.9900, L3100.3425, L100.0100, L503.6550, L501.6710, L500.4050 ####[facility] [address] [place], [address] VCFHM-0-LOJZ 1.1 g/dL High 0.4-1.0 [facility] Comment on above: Order Comment: N Performed By: #### L 101.9900, L3100.3425, L100.0100, L503.6550, L501.6710, L500.4050 ####[facility] [address] [place], [address] BETA GLOBULIN 1.1 g/dL Normal 0.7-1.3 [facility] Comment on above: Order Comment: N Performed By: #### L 101.9900, L3100.3425, L100.0100, L503.6550, L501.6710, L500.4050 ####[facility] [address] [place], [address] GAMMA GLOBULIN 0.6 g/dL Normal 0.4-1.8 [facility] Comment on above: Order Comment: N Performed By: #### L 101.9900, L3100.3425, L100.0100, L503.6550, L501.6710, L500.4050 ####[facility] [address] [place], [address] Globulin (S) [Mass/Vol] 3.1 g/dL Normal 2.2-3.9 [facility] Comment on above: Order Comment: N Performed By: #### L 101.9900, L3100.3425, L100.0100, L503.6550, L501.6710, L500.4050 ####[facility] [address] [place], [address] BERT RESULT,S Comment Normal . [facility] Comment on above: Order Comment: N Result Comment: No m onoclonality detected. Performed By: #### L 101.9900, L3100.3425, L100.0100, L503.6550, L501.6710, L500.4050 ####[facility] [address] [place], [address] IMMUNOGLOB A QN 127 mg/dL Normal 87-352 [facility] Comment on above: Order Comment: N Performed By: #### L 101.9900, L3100.3425, L100.0100, L503.6550, L501.6710, L500.4050 ####[facility] [address] [place], [address] IMMUNOGLOB G QN 691 mg/dL Normal 586-1602 [facility] Comment on above: Order Comment: N Performed By: #### L 101.9900, L3100.3425, L100.0100, L503.6550, L501.6710, L500.4050 ####[facility] [address] [place], [address] IMMUNOGLOB M QN 157 mg/dL Normal 26-217 [facility] Comment on above: Order Comment: N Performed By: #### L 101.9900, L3100.3425, L100.0100, L503.6550, L501.6710, L500.4050 ####[facility] [address] [place], [address] M-Thanh Not Observed Normal Not Observed [facility] Comment on above: Order Comment: N Performed By: #### L 101.9900, L3100.3425, L100.0100, L503.6550, L501.6710, L500.4050 ####[facility] [address] [place], [address] NOTE: Comment Normal . [facility] Comment on above: Order Comment: N Result Comment: Prot ein electrophoresis scan will follow via computer, mail, or membership advisor delivery. Performed at: [address] [id number] Senior Paralegal: Esteban Mckenna PhD, Phone: [phone] Performed By: #### L 101.9900, L3100.3425, L100.0100, L503.6550, L501.6710, L500.4050 ####[facility] [address] [place], [address] Protein [Mass/Vol] 6.7 g/dL Normal 6.0-8.5 [facility] Comment on above: Order Comment: N Performed By: #### L 101.9900, L3100.3425, L100.0100, L503.6550, L501.6710, L500.4050 ####[facility] [address] [place], [address] CBC W/Diff, Automatedon 10-2 Absolute Lymph 3.54 X10 3/uL Normal 0.83-4.51 [facility] Comment on above: Performed By: #### L 101.9900, L3100.3425, L100.0100, L503.6550, L501.6710, L500.4050 ####[facility] [address] [place], [address] Absolute Neut 16.6 X10 3/uL High 2.0-7.7 [facility] Comment on above: Performed By: #### L 101.9900, L3100.3425, L100.0100, L503.6550, L501.6710, L500.4050 ####[facility] [address] [place], [address] Basophils/100 WBC (Bld) 0.3 % Normal 0-1 [facility] Comment on above: Performed By: #### L 101.9900, L3100.3425, L100.0100, L503.6550, L501.6710, L500.4050 ####[facility] [address] [place], [address] Eosinophils/100 WBC (Bld) 0.5 % Normal 0-5 [facility] Comment on above: Performed By: #### L 101.9900, L3100.3425, L100.0100, L503.6550, L501.6710, L500.4050 ####[facility] [address] [place], [address] Erythrocyte distribution width (RBC) [Ratio] 12.5 % Normal 11.6-14.6 [facility] Comment on above: Performed By: #### L 101.9900, L3100.3425, L100.0100, L503.6550, L501.6710, L500.4050 ####[facility] [address] [place], [address] Hematocrit (Bld) [Volume fraction] 38.9 % Normal 37-47 [facility] Comment on above: Performed By: #### L 101.9900, L3100.3425, L100.0100, L503.6550, L501.6710, L500.4050 ####[facility] [address] [place], [address] Hemoglobin (Bld) [Mass/Vol] 12.2 g/dL Normal 12.0-15.0 [facility] Comment on above: Performed By: #### L 101.9900, L3100.3425, L100.0100, L503.6550, L501.6710, L500.4050 ####[facility] [address] [place], [address] IG% 0.600 Normal 0.0-0.9 [facility] Comment on above: Result Comment: IG% - Immature Granulocytes (promyelocytes, myelocytes and metamyelocytes) > 1% indicates that a LEFT SHIFT is Present. Performed By: #### L 101.9900, L3100.3425, L100.0100, L503.6550, L501.6710, L500.4050 ####[facility] [address] [place], [address] Lymphocytes/100 WBC (Bld) 16.7 % Low 19-41 [facility] Comment on above: Performed By: #### L 101.9900, L3100.3425, L100.0100, L503.6550, L501.6710, L500.4050 ####[facility] [address] [place], [address] MCH (RBC) [Entitic mass] 29.0 pg Normal 27.0-32.0 [facility] Comment on above: Performed By: #### L 101.9900, L3100.3425, L100.0100, L503.6550, L501.6710, L500.4050 ####[facility] [address] [place], [address] MCHC (RBC) [Mass/Vol] 31.4 g/dL Low 32-36 [facility] Comment on above: Performed By: #### L 101.9900, L3100.3425, L100.0100, L503.6550, L501.6710, L500.4050 ####[facility] [address] [place], [address] MCV (RBC) [Entitic vol] 92.4 fL Normal 81-99 [facility] Comment on above: Performed By: #### L 101.9900, L3100.3425, L100.0100, L503.6550, L501.6710, L500.4050 ####[facility] [address] [place], [address] Monocytes/100 WBC (Bld) 3.2 % Normal 0-10 [facility] Comment on above: Performed By: #### L 101.9900, L3100.3425, L100.0100, L503.6550, L501.6710, L500.4050 ####[facility] [address] [place], [address] Neutrophils/100 WBC (Bld) 78.7 % High 47-70 [facility] Comment on above: Performed By: #### L 101.9900, L3100.3425, L100.0100, L503.6550, L501.6710, L500.4050 ####[facility] [address] [place], [address] Nucleated RBC (Bld) [#/Vol] 0 10*3/uL Normal 0-5 [facility] Comment on above: Performed By: #### L 101.9900, L3100.3425, L100.0100, L503.6550, L501.6710, L500.4050 ####[facility] [address] [place], [address] Platelet mean volume (Bld) [Entitic vol] 10.7 fL Normal 6.2-12.0 [facility] Comment on above: Performed By: #### L 101.9900, L3100.3425, L100.0100, L503.6550, L501.6710, L500.4050 ####[facility] [address] [place], [address] Platelets (Bld) [#/Vol] 378 10*3/uL Normal 150-450 [facility] Comment on above: Performed By: #### L 101.9900, L3100.3425, L100.0100, L503.6550, L501.6710, L500.4050 ####[facility] [address] [place], [address] RBC (Bld) [#/Vol] 4.21 10*6/uL Normal 4.2-5.4 [facility] Comment on above: Performed By: #### L 101.9900, L3100.3425, L100.0100, L503.6550, L501.6710, L500.4050 ####[facility] [address] [place], [address] RDW SD 42.4 fl Normal 35.1-43.9 [facility] Comment on above: Performed By: #### L 101.9900, L3100.3425, L100.0100, L503.6550, L501.6710, L500.4050 ####[facility] [address] [place], [address] WBC (Bld) [#/Vol] 21.1 10*3/uL High 4.4-11.0 [facility] Comment on above: Performed By: #### L 101.9900, L3100.3425, L100.0100, L503.6550, L501.6710, L500.4050 ####[facility] [address] [place], [address] CRPon 06-26-2024 C-REACTIVE PROT 26.00 mg/L High 0.0-3.0 [facility] Comment on above: Result Comment: C-Re active Protein (CRP) provides useful information for the diagnosis, therapy and monitoring of inflammatory processes and associated diseases. For the evaluation of Relative Risk for Cardiovascular Disease, a High Sensitivity CRP (HSCRP) should be ordered. Performed By: #### L 101.9900, L3100.3425, L100.0100, L503.6550, L501.6710, L500.4050 ####[facility] [address] [place], [address] Comprehensive Metabolic Prof ilon 06-26-2024 Albumin [Mass/Vol] 3.4 g/dL Normal 3.2-5.0 [facility] Comment on above: Performed By: #### L 101.9900, L3100.3425, L100.0100, L503.6550, L501.6710, L500.4050 ####[facility] [address] [place], [address] Albumin/Globulin [Mass ratio] 0.9 {ratio} Normal 0.9-2.4 [facility] Comment on above: Performed By: #### L 101.9900, L3100.3425, L100.0100, L503.6550, L501.6710, L500.4050 ####[facility] [address] [place], [address] ALK P 64 U/L Normal 45-117 [facility] Comment on above: Performed By: #### L 101.9900, L3100.3425, L100.0100, L503.6550, L501.6710, L500.4050 ####[facility] [address] [place], [address] ALT [Catalytic activity/Vol] 21 U/L Normal 13-56 [facility] Comment on above: Performed By: #### L 101.9900, L3100.3425, L100.0100, L503.6550, L501.6710, L500.4050 ####[facility] [address] [place], [address] AST [Catalytic activity/Vol] 8 U/L Low 15-37 [facility] Comment on above: Performed By: #### L 101.9900, L3100.3425, L100.0100, L503.6550, L501.6710, L500.4050 ####[facility] [address] [place], [address] Bilirubin [Mass/Vol] 0.20 mg/dL Normal 0.20-1.00 [facility] Comment on above: Result Comment: For patients on eltrombopag therapy, use of Dimension [place] TBIL is not recommended. Performed By: #### L 101.9900, L3100.3425, L100.0100, L503.6550, L501.6710, L500.4050 ####[facility] [address] [place], [address] BUN/CRE 12.0 RATIO Normal 10-20 [facility] Comment on above: Performed By: #### L 101.9900, L3100.3425, L100.0100, L503.6550, L501.6710, L500.4050 ####[facility] [address] [place], [address] CA,Total 9.1 mg/dL Normal 8.5-10.1 [facility] Comment on above: Performed By: #### L 101.9900, L3100.3425, L100.0100, L503.6550, L501.6710, L500.4050 ####[facility] [address] [place], [address] Chloride [Moles/Vol] 106 mmol/L Normal 98-107 [facility] Comment on above: Performed By: #### L 101.9900, L3100.3425, L100.0100, L503.6550, L501.6710, L500.4050 ####[facility] [address] [place], [address] CO2 [Moles/Vol] 27.0 mmol/L Normal 21.0-32.0 [facility] Comment on above: Performed By: #### L 101.9900, L3100.3425, L100.0100, L503.6550, L501.6710, L500.4050 ####[facility] [address] [place], [address] Creatinine [Mass/Vol] 0.92 mg/dL Normal 0.55-1.02 [facility] Comment on above: Result Comment: The validity of the calculated GFR GFRAA in patients over 70 years has not been determined. Clinical correlation is essential. Performed By: #### L 101.9900, L3100.3425, L100.0100, L503.6550, L501.6710, L500.4050 ####[facility] [address] [place], [address] EST GFR - AA 96 mL/min Normal >60 [facility] Comment on above: Result Comment: Afri can Ivorian GFR Calc Performed By: #### L 101.9900, L3100.3425, L100.0100, L503.6550, L501.6710, L500.4050 ####[facility] [address] [place], [address] GAP 7 Normal 5-15 [facility] Comment on above: Performed By: #### L 101.9900, L3100.3425, L100.0100, L503.6550, L501.6710, L500.4050 ####[facility] [address] [place], [address] GFR/1.73 sq M.predicted among non-blacks MDRD (S/P/Bld) [Vol rate/Area] 79 mL/min/{1.73_m2} Normal >60 [facility] Comment on above: Result Comment: Non- GFR Calc Performed By: #### L 101.9900, L3100.3425, L100.0100, L503.6550, L501.6710, L500.4050 ####[facility] [address] [place], [address] Globulin (S) [Mass/Vol] 3.8 g/dL Normal 2.2-4.2 [facility] Comment on above: Performed By: #### L 101.9900, L3100.3425, L100.0100, L503.6550, L501.6710, L500.4050 ####[facility] [address] [place], [address] Glucose [Mass/Vol] 85 mg/dL Normal 74-106 [facility] Comment on above: Performed By: #### L 101.9900, L3100.3425, L100.0100, L503.6550, L501.6710, L500.4050 ####[facility] [address] [place], [address] Potassium [Moles/Vol] 3.8 mmol/L Normal 3.5-5.1 [facility] Comment on above: Performed By: #### L 101.9900, L3100.3425, L100.0100, L503.6550, L501.6710, L500.4050 ####[facility] [address] [place], [address] Sodium [Moles/Vol] 140 mmol/L Normal 136-145 [facility] Comment on above: Performed By: #### L 101.9900, L3100.3425, L100.0100, L503.6550, L501.6710, L500.4050 ####[facility] [address] [place], [address] T PROT 7.2 g/dL Normal 6.4-8.2 [facility] Comment on above: Performed By: #### L 101.9900, L3100.3425, L100.0100, L503.6550, L501.6710, L500.4050 ####[facility] [address] [place], [address] Urea nitrogen [Mass/Vol] 11 mg/dL Normal 7-18 [facility] Comment on above: Performed By: #### L 101.9900, L3100.3425, L100.0100, L503.6550, L501.6710, L500.4050 ####[facility] [address] [place], [address] Erythrocyte Sed Rateon 06-26 SED RATE 30 mm/hr Normal 0-30 [facility] Comment on above: Performed By: #### L 101.9900, L3100.3425, L100.0100, L503.6550, L501.6710, L500.4050 ####[facility] [address] [place], [address] Ferritinon 06-26-2024 Ferritin [Mass/Vol] 228 ng/mL Normal 8-252 [facility] Comment on above: Performed By: #### L 101.9900, L3100.3425, L100.0100, L503.6550, L501.6710, L500.4050 ####[facility] [address] [place], [place], [address] CRPon 05-08-2024 C-REACTIVE PROT 17.10 mg/L High 0.0-3.0 [facility] Comment on above: Result Comment: C-Re active Protein (CRP) provides useful information for the diagnosis, therapy and monitoring of inflammatory processes and associated diseases. For the evaluation of Relative Risk for Cardiovascular Disease, a High Sensitivity CRP (HSCRP) should be ordered. Performed By: #### L 101.9900, L501.6710 ####[facility] [address] [place], [place], [address] Erythrocyte Sed Rateon 05-08 SED RATE 8 mm/hr Normal 0-30 [facility] Comment on above: Performed By: #### L 101.9900, L501.6710 ####[facility] [address] [place], [place], [address] Laboratory - Chemistry and C hemistry - challengeOrdered By: Stormy Carreon on 01-05-2024 HCG ( test) Ql (U) Negative [facility] Comment on above: Very dilute urine sp ecimens, as indicated by a low specificgravity, may not contain civil rights representative levels of hCG. If is still suspected, a first morning urinespecimen should be collected 48 hours later and tested. Albumin Elph [Mass/Vol]Order ed By: Timothy Thompson on 12-16-2023 Albumin [Mass/Vol] 3.6 g/dL 2.9-4.4 [facility] Atypical P-ANCA titerOrdered By: Timothy Thompson on 12-16-2023 Neutrophil cytoplasmic Ab.perinuclear.atypical IF (S) [Titer] Negative Negative [facility] Chitobioside IgA antibody as sayOrdered By: Timothy Thompson on 12-16-2023 Chitobioside IgA IA Qn 17 units 0-90 [facility] Comment on above: Negative: <80 Equivo cheryl: 80-90 Positive: >90 Erythrocyte sedimentation ra teOrdered By: Timothy Thompson on 12-16-2023 ESR (Bld) [Velocity] 57 mm/h 0-30 [facility] Interpretation of serum or p lasma protein pattern by immunofixation (narrative resultOrdered By: Timothy Thompson on 12-16-2023 Protein Fractions Immunofixation Leroy [Interp] Not Observed g/dL Not Observed [facility] Laboratory - Miscellaneous t estsOrdered By: Timothy Thompson on 12-16-2023 Laboratory comment Leroy (Report) Comment . [facility] Comment on above: Pattern is not sugge stive of Inflammatory Bowel Disease Laminaribioside carbohydrate IgG antibody assayOrdered By: Timothy Thompson on 12-16-2023 Laminaribioside IgG IA Qn 26 units 0-60 [facility] Comment on above: Negative:<55 Equivoc al: 55-60 Positive: >60 No Panel InformationOrdered By: Timothy Thompson on 12-16-2023 Addendum Document Comment . [facility] Comment on above: Protein electrophore sis scan will follow via computer,mail, or membership advisor delivery. Adrenocorticotropic Hormone 2.7 pg/mL 7.2-63.3 [facility] Comment on above: ACTH reference inter suze for samples collected between 7 and10 AM. C-Reactive Protein Extended Range 41.20 mg/L 0.0-3.0 [facility] Comment on above: C-Reactive Protein ( CRP) provides useful information for thediagnosis, therapy and monitoring of inflammatory processesand associated diseases. For the evaluation of Relative Riskfor Cardiovascular Disease, a High Sensitivity CRP (HSCRP)should be ordered. Immunoglobulin G4 25 mg/dL 2-96 [facility] Immunoglobulin M 186 mg/dL 26-217 [facility] Parathyroid Hormone (Intact) 68.6 pg/mL 18.4-80.1 [facility] Prolactin 6.4 ng/mL [facility] Comment on above: NORMAL REFERENCE RAN GES FEMALE NON- 2.2 - 30.3 ng/mL 8.1 - 347.6 ng/mL POST-MENOPAUSAL 0.7 - 31.5 ng/mL MALE 2.5 - 17.4 ng/mL Saccharomyces cerevisiae (Pauline)IgG 0 units 0-50 [facility] Comment on above: Negative: <45 Equivo cheryl: 45-50 Positive: >50 Plasma epinephrine measureme nt (mass/volume)Ordered By: Timothy Thompson on 12-16-2023 EPINEPHrine (P) [Mass/Vol] <15 pg/mL 0-62 [facility] Plasma norepinephrine measur ement (mass/volume)Ordered By: Timothy Thompson on 12-16-2023 Norepinephrine (P) [Mass/Vol] 204 pg/mL 0-874 [facility] Plasma renin measurement (en zymatic activity/volume)Ordered By: Timothy Thompson on 12-16-2023 Renin (P) [Catalytic activity/Vol] 2.520 ng/mL/hr 0.167-5.380 [facility] Serum IgG subclass 1 measure ment (mass/volume)Ordered By: Timothy Thompson on 12-16-2023 IgG subclass 1 (S) [Mass/Vol] 526 mg/dL 248-810 [facility] Serum IgG subclass 2 measure ment (mass/volume)Ordered By: Timothy Thompson on 12-16-2023 IgG subclass 2 (S) [Mass/Vol] 377 mg/dL 130-555 [facility] Serum IgG subclass 3 measure ment (mass/volume)Ordered By: Timothy Thompson on 12-16-2023 IgG subclass 3 (S) [Mass/Vol] 41 mg/dL 15-102 [facility] Serum [id number] measu rement by electrophoresisOrdered By: Timothy Thompson on 12-16-2023 Alpha 1 globulin Elph [Mass/Vol] 0.3 g/dL 0.0-0.4 [facility] Alpha 1 globulin Elph [Mass/Vol] 1.2 g/dL 0.4-1.0 [facility] Serum globulin measurement ( mass/volume)Ordered By: Timothy Thompson on 12-16-2023 Globulin (S) [Mass/Vol] 3.5 g/dL 2.2-3.9 [facility] Serum or plasma IgA measurem ent (mass/volume)Ordered By: Timothy Thompson on 12-16-2023 IgA [Mass/Vol] 154 mg/dL 87-352 [facility] Serum or plasma IgG measurem ent (mass/volume)Ordered By: Timothy Thompson on 12-16-2023 IgG [Mass/Vol] 955 mg/dL [phone] [facility] IgG [Mass/Vol] Not Reportable [facility] Serum or plasma angiotensin converting enzyme measurement (enzymatic activity/volume)Ordered By: Timothy Thompson on 12-16-2023 Angiotensin converting enzyme [Catalytic activity/Vol] 37 U/L 14-82 [facility] Comment on above: Performed at: - [facility] [id number] [place], [place] [id number] Director: Esteban Mckenna PhD, Phone: [phone] at: [address] [id number] Director: Philipp Mosley MD, Phone: [phone] Serum or plasma beta globuli n measurement by electrophoresis (mass/volume)Ordered By: Timothy Thompson on 12-16-2023 Beta globulin Elph [Mass/Vol] 1.1 g/dL 0.7-1.3 [facility] Serum or plasma cortisol thad surement (mass/volume)Ordered By: Timothy Thompson on 12-16-2023 Cortisol [Mass/Vol] 16.00 ug/dL 3.44-22.45 [facility] [place] Comment on above: Adult (AM) 5.27 - 22 .45 ug/dL Adult (PM) 3.44 - 16.76 ug/dLPlease note revised CORTISOL reference range effective 2019. Serum or plasma dopamine thad surement (mass/volume)Ordered By: Timothy Thompson on 12-16-2023 DOPamine [Mass/Vol] <30 pg/mL 0-48 [facility] Serum or plasma gamma globul in measurement by electrophoresis (mass/volume)Ordered By: Timothy Thompson on 12-16-2023 Gamma globulin Elph [Mass/Vol] 0.9 g/dL 0.4-1.8 [facility] Serum or plasma gastrin fred urement (mass/volume)Ordered By: Timothy Thompson on 12-16-2023 Gastrin [Mass/Vol] 33 pg/mL 0-115 [facility] Comment on above: Siemens Immulite 200 0 Immunochemiluminometric assay (ICMA)Values obtained with different assay methods or kits cannotbe used interchangeably. Results cannot be interpreted asabsolute evidence of the presence or absence of malignantdisease. Serum or plasma immunoelectr ophoresis interpretation (nominal result)Ordered By: Timothy Thompson on 12-16-2023 Interpretation IEP [Interp] Comment . [facility] Comment on above: No monoclonality det ected. Serum or plasma mannobioside IgG antibody assay by immunoassay (units/volume)Ordered By: Timothy Thompson on 12-16-2023 Mannobioside IgG IA Qn 13 units 0-100 [facility] Comment on above: Negative: <90 Equivo cheryl: 90-100 Positive: >100 This test was developed and its performance characteristics determined by [employer]. It has not been cleared or approved by the Food and Drug Administration. The FDA has determined that such clearance or approval is not necessary. Thin prep Papanicolaou smear with manual screeningOrdered By: Timothy Thompson on 12-16-2023 Thin prep Papanicolaou smear with manual screening 1.1 0.7-1.7 [facility] Total protein bloodOrdered B y: Timothy Thompson on 12-16-2023 Protein [Mass/Vol] 7.1 g/dL 6.0-8.5 [facility] Absolute lymphocyte countOrd ered By: Antonio Ramirez on 11-01-2023 Lymphocytes Auto (Unsp spec) [#/Vol] 4.99 10*3/uL 0.83-4.51 [facility] Automated lymphocyte count a s percentage of total leukocytesOrdered By: Antonio Ramirez on 11-01-2023 Lymphocytes/100 WBC Auto (Unsp spec) 36.8 % 19-41 [facility] Basophil percentageOrdered B y: Antonio Ramirez on 11-01-2023 Basophil percentage 5-10 SEEN /hpf 0-5 [facility] Basophils/100 WBC (Bld) 0.3 % 0-1 [facility] Chloride [Moles/Vol] 109 mmol/L 98-107 [facility] Eosinophils/100 WBC (Bld) 1.3 % 0-5 [facility] Glucose [Mass/Vol] 93 mg/dL 74-106 [facility] Hemoglobin (Bld) [Mass/Vol] 11.6 g/dL 12.0-15.0 [facility] Monocytes/100 WBC (Bld) 4.6 % 0-10 [facility] Neutrophils (Bld) [#/Vol] 7.7 10*3/uL 2.0-7.7 [facility] Neutrophils/100 WBC (Bld) 56.8 % 47-70 [facility] Potassium [Moles/Vol] 3.8 mmol/L 3.5-5.1 [facility] Sodium [Moles/Vol] 141 mmol/L 136-145 [facility] WBC (Bld) [#/Vol] 13.6 10*3/uL 4.4-11.0 [facility] Bilirubin Test strip Ql (U)O rdered By: Antonio Ramirez on 11-01-2023 Bilirubin Ql (U) Negative Negative [facility] Determination of erythrocyte mean corpuscular volume (MCV)Ordered By: Antonio Ramirez on 11-01-2023 MCV (RBC) [Entitic vol] 85.9 fL 81-99 [facility] Erythrocyte distribution wid th ratioOrdered By: Antonio Ramirez on 11-01-2023 Erythrocyte distribution width (RBC) [Ratio] 13.3 % 11.6-14.6 [facility] Erythrocyte distribution wid th standard deviationOrdered By: Antonio Ramirez on 11-01-2023 Erythrocyte distribution width (RBC) [Entitic vol] 41.6 fL 35.1-43.9 [facility] Hematocrit Auto (Bld) [Volum e fraction]Ordered By: Antonio Ramirez on 11-01-2023 Hematocrit (Bld) [Volume fraction] 37.1 % 37-47 [facility] Immature granulocytes/100 WB C Auto (Bld)Ordered By: Antonio Ramirez on 11-01-2023 Immature granulocytes/100 WBC (Bld) 0.200 % 0.0-0.9 [facility] Comment on above: IG% - Immature Granu locytes (promyelocytes, myelocytes and metamyelocytes) > 1% indicates that a LEFT SHIFT is Present. Ketones Test strip Ql (U)Ord ered By: Antonio Ramirez on 11-01-2023 Ketones Ql (U) Negative Negative [facility] Laboratory - Chemistry and C hemistry - challengeOrdered By: Antonio Ramirez on 11-01-2023 CO2 [Moles/Vol] 25.0 mmol/L 21.0-32.0 [facility] Urea nitrogen/Creatinine [Mass ratio] 10.0 mg/mg 10-20 [facility] Laboratory - Hematology and Cell countsOrdered By: Antonio Ramirez on 11-01-2023 MCH (RBC) [Entitic mass] 26.9 pg 27.0-32.0 [facility] MCHC (RBC) [Mass/Vol] 31.3 g/dL 32-36 [facility] Nucleated RBC/100 WBC (Bld) [Ratio] 0 % 0-5 [facility] Platelet mean volume (Bld) [Entitic vol] 11.9 fL 6.2-12.0 [facility] Platelets (Bld) [#/Vol] 311 10*3/uL 150-450 [facility] Mucus LM Ql (Urine sed)Order ed By: Antonio Ramirez on 11-01-2023 Mucus Ql (Urine sed) 0 SEEN /hpf [facility] Nitrite Test strip Ql (U)Ord ered By: Antonio Ramirez on 11-01-2023 Nitrite Ql (U) Negative Negative [facility] No Panel InformationOrdered By: Antonio Ramirez on 11-01-2023 Estimated Creatinine Clearance Calc 101.26 ml/min [facility] Estimated GFR (MDRD) Amer 78 mL/min >60 [facility] Comment on above: GFR Calc Estimated GFR (MDRD) Non-Af Amer 65 mL/min >60 [facility] Comment on above: Non- GFR Calc Urine RBC 0 SEEN /hpf 0-5 [facility] Protein Test strip Ql (U)Ord ered By: Antonio Ramirez on 11-01-2023 Protein Ql (U) 15 mg/dl Negative [facility] RBC Auto (Bld) [#/Vol]Ordere d By: Antonio Ramirez on 11-01-2023 RBC (Bld) [#/Vol] 4.32 10*6/uL 4.2-5.4 [facility] Serum or plasma calcium fred urement (mass/volume)Ordered By: Antonio Ramirez on 11-01-2023 Calcium [Mass/Vol] 8.9 mg/dL 8.5-10.1 [facility] Serum or plasma choriogonado tropin detectionOrdered By: Antonio Ramirez on 11-01-2023 HCG ( test) Ql Negative [facility] Serum or plasma creatinine m easurement (mass/volume)Ordered By: Antonio Ramirez on 11-01-2023 Creatinine [Mass/Vol] 1.10 mg/dL 0.55-1.02 [facility] Comment on above: The validity of the calculated GFR & GFRAA in patients over 70 years has not been determined. Clinical correlation is essential. Serum or plasma urea nitroge n measurement (mass/volume)Ordered By: Antonio Ramirez on 11-01-2023 Urea nitrogen [Mass/Vol] 11 mg/dL 7-18 [facility] Squamous epithelial cells de tection in urine sediment by light microscopyOrdered By: Antonio Ramirez on 11-01-2023 Epithelial cells.squamous LM Ql (Urine sed) 0 SEEN /hpf 5-10 [facility] Thin prep Papanicolaou smear with manual screeningOrdered By: Antonio Ramirez on 11-01-2023 Thin prep Papanicolaou smear with manual screening 7 5-15 [facility] Transitional cells detection in urine sediment by light microscopyOrdered By: Antonio Ramirez on 11-01-2023 Transitional cells LM Ql (Urine sed) 10-25 SEEN /hpf 0-5 [facility] Urine blood detectionOrdered By: Antonio Ramirez on 11-01-2023 RBC Ql (U) Negative Negative [facility] Urine clarityOrdered By: Carolina Ramirez on 11-01-2023 Clarity (U) Clear Clear [facility] Urine color determinationOrd ered By: Antonio Ramirez on 11-01-2023 Color (U) Yellow Yellow [facility] Urine glucose detectionOrder ed By: Antonio Ramirez on 11-01-2023 Glucose Ql (U) Normal mg/dl Normal [facility] Urine leukocyte esterase det ection by dipstickOrdered By: Antonio Ramirez on 11-01-2023 Leukocyte esterase Test strip Ql (U) 25 /ul Negative [facility] Urine pHOrdered By: Antonio hernandez on 11-01-2023 pH (U) 6.0 [pH] 5.0 - 8.0 [facility] Urine sediment bacteria coun t by microscopy (number/high power field)Ordered By: Antonio Ramirez on 11-01-2023 Bacteria LM.HPF (Urine sed) [#/Area] 3 /[HPF] None Seen [facility] Urine specific gravity measu rementOrdered By: Antonio Ramirez on 11-01-2023 Specific gravity (U) [Rel density] 1.015 1.002-1.030 [facility] Urine urobilinogen measureme ntOrdered By: Antonio Ramirez on 11-01-2023 Urobilinogen Ql (U) Normal mg/dl Normal [facility] Absolute lymphocyte countOrd ered By: Antonio Templeton on 09-12-2023 Lymphocytes Auto (Unsp spec) [#/Vol] 4.15 10*3/uL 0.83-4.51 [facility] Amorphous sediment detection in urine sediment by light microscopyOrdered By: Antonio Templeton on 09-12-2023 Amorphous sediment LM Ql (Urine sed) 1+ URATE [facility] Automated lymphocyte count a s percentage of total leukocytesOrdered By: Antonio Templeton on 09-12-2023 Lymphocytes/100 WBC Auto (Unsp spec) 25.1 % 19-41 [facility] Basophil percentageOrdered B y: Antonio Templeton on 09-12-2023 Basophil percentage 0 SEEN /hpf 0-5 [facility] [place] Basophils/100 WBC (Bld) 0.3 % 0-1 [facility] Bilirubin [Mass/Vol] 0.30 mg/dL 0.20-1.00 [facility] [place] Comment on above: For patients on eltr ombopag therapy, use of Dimension [place] TBIL is not recommended. Chloride [Moles/Vol] 106 mmol/L 98-107 [facility] [place] Eosinophils/100 WBC (Bld) 0.6 % 0-5 [facility] Glucose [Mass/Vol] 89 mg/dL 74-106 [facility] Hemoglobin (Bld) [Mass/Vol] 12.7 g/dL 12.0-15.0 [facility] Monocytes/100 WBC (Bld) 4.1 % 0-10 [facility] Neutrophils (Bld) [#/Vol] 11.5 10*3/uL 2.0-7.7 [facility] Neutrophils/100 WBC (Bld) 69.6 % 47-70 [facility] Potassium [Moles/Vol] 4.0 mmol/L 3.5-5.1 [facility] Protein [Mass/Vol] 8.3 g/dL 6.4-8.2 [facility] Sodium [Moles/Vol] 138 mmol/L 136-145 [facility] WBC (Bld) [#/Vol] 16.6 10*3/uL 4.4-11.0 [facility] Bilirubin Test strip Ql (U)O rdered By: Antonio Templeton on 09-12-2023 Bilirubin Ql (U) Negative Negative [facility] Culture, urineOrdered By: Phi Templeton on 09-12-2023 Bacteria identified Cx Nom (U) Mixed Gram Pos & Gram Neg Org [facility] Bacteria identified Cx Nom (U) Mixed Gram Pos & Gram Neg Org [facility] Determination of erythrocyte mean corpuscular volume (MCV)Ordered By: Antonio Templeton on 09-12-2023 MCV (RBC) [Entitic vol] 86.6 fL 81-99 [facility] Erythrocyte distribution wid th ratioOrdered By: Antonio Templeton on 09-12-2023 Erythrocyte distribution width (RBC) [Ratio] 13.6 % 11.6-14.6 [facility] Erythrocyte distribution wid th standard deviationOrdered By: Antonio Templeton on 09-12-2023 Erythrocyte distribution width (RBC) [Entitic vol] 43.4 fL 35.1-43.9 [facility] Hematocrit Auto (Bld) [Volum e fraction]Ordered By: Antonio Templeton on 09-12-2023 Hematocrit (Bld) [Volume fraction] 41.2 % 37-47 [facility] Immature granulocytes/100 WB C Auto (Bld)Ordered By: Antonio Templeton on 09-12-2023 Immature granulocytes/100 WBC (Bld) 0.300 % 0.0-0.9 [facility] Comment on above: IG% - Immature Granu locytes (promyelocytes, myelocytes and metamyelocytes) > 1% indicates that a LEFT SHIFT is Present. Ketones Test strip Ql (U)Ord ered By: Antonio Templeton on 09-12-2023 Ketones Ql (U) 5 mg/dl Negative [facility] Laboratory - Chemistry and C hemistry - challengeOrdered By: Antonio Templeton on 09-12-2023 Albumin/Globulin [Mass ratio] 0.8 {ratio} 0.9-2.4 [facility] ALP [Catalytic activity/Vol] 87 U/L 45-117 [facility] ALT [Catalytic activity/Vol] 21 U/L 13-56 [facility] CO2 [Moles/Vol] 24.0 mmol/L 21.0-32.0 [facility] Globulin (S) [Mass/Vol] 4.7 g/dL 2.2-4.2 [facility] Urea nitrogen/Creatinine [Mass ratio] 13.3 mg/mg 10-20 [facility] Laboratory - Hematology and Cell countsOrdered By: Antonio Templeton on 09-12-2023 MCH (RBC) [Entitic mass] 26.7 pg 27.0-32.0 [facility] MCHC (RBC) [Mass/Vol] 30.8 g/dL 32-36 [facility] Nucleated RBC/100 WBC (Bld) [Ratio] 0 % 0-5 [facility] Platelets (Bld) [#/Vol] 343 10*3/uL 150-450 [facility] Mucus LM Ql (Urine sed)Order ed By: Antonio Templeton on 09-12-2023 Mucus Ql (Urine sed) 0 SEEN /hpf [facility] Nitrite Test strip Ql (U)Ord ered By: Antonio Templeton on 09-12-2023 Nitrite Ql (U) Negative Negative [facility] No Panel InformationOrdered By: Antonio Templeton on 09-12-2023 Estimated GFR (MDRD) Amer 90 mL/min >60 [facility] Comment on above: GFR Calc Estimated GFR (MDRD) Non-Af Amer 74 mL/min >60 [facility] Comment on above: Non- GFR Calc Urine RBC 0-5 SEEN /hpf 0-5 [facility] Platelet mean volume Kranthi-Ec ker (Bld) [Entitic vol]Ordered By: Antonio Templeton on 09-12-2023 Platelet mean volume (Bld) [Entitic vol] 11.7 fL 6.2-12.0 [facility] Protein Test strip Ql (U)Ord ered By: Antonio Templeton on 09-12-2023 Protein Ql (U) 15 mg/dl Negative [facility] RBC Auto (Bld) [#/Vol]Ordere d By: Antonio Templeton on 09-12-2023 RBC (Bld) [#/Vol] 4.76 10*6/uL 4.2-5.4 [facility] Serum or plasma calcium fred urement (mass/volume)Ordered By: Antonio Templeton on 09-12-2023 Calcium [Mass/Vol] 9.5 mg/dL 8.5-10.1 [facility] Serum or plasma creatinine m easurement (mass/volume)Ordered By: Antonio Templeton on 09-12-2023 Creatinine [Mass/Vol] 0.98 mg/dL 0.55-1.02 [facility] Comment on above: The validity of the calculated GFR & GFRAA in patients over 70 years has not been determined. Clinical correlation is essential. Serum or plasma urea nitroge n measurement (mass/volume)Ordered By: Antonio Templeton on 09-12-2023 Urea nitrogen [Mass/Vol] 13 mg/dL 7-18 [facility] Squamous epithelial cells de tection in urine sediment by light microscopyOrdered By: Antonio Templeton on 09-12-2023 Epithelial cells.squamous LM Ql (Urine sed) 0-5 SEEN /hpf 5-10 [facility] Thin prep Papanicolaou smear with manual screeningOrdered By: Antonio Templeton on 09-12-2023 Thin prep Papanicolaou smear with manual screening 3.6 g/dL 3.2-5.0 [facility] Thin prep Papanicolaou smear with manual screening 18 U/L 15-37 [facility] Thin prep Papanicolaou smear with manual screening 8 5-15 [facility] Urine blood detectionOrdered By: Antonio Templeton on 09-12-2023 RBC Ql (U) 25 /ul Negative [facility] Urine clarityOrdered By: Carolina Templeton on 09-12-2023 Clarity (U) Sl. Cloudy Clear [facility] Comment on above: Previous reported re sult: Clear Edited by: TRACY on 09/12/23:1739 AMENDED REPORT 09/12/23 1739 CLARITY previously reported as: Clear Urine color determinationOrd ered By: Antonio Templeton on 01-15-2024 Color (U) Yellow Yellow [facility] Urine glucose detectionOrder ed By: Antonio Templeton on 09-12-2023 Glucose Ql (U) Normal mg/dl Normal [facility] Urine leukocyte esterase det ection by dipstickOrdered By: Antonio Templeton on 09-12-2023 Leukocyte esterase Test strip Ql (U) Negative Negative [facility] Urine pHOrdered By: Antonio dozier on 09-12-2023 pH (U) 6.0 [pH] 5.0 - 8.0 [facility] Urine sediment bacteria coun t by microscopy (number/high power field)Ordered By: Antonio Templeton on 09-12-2023 Bacteria LM.HPF (Urine sed) [#/Area] 0 /[HPF] None Seen [facility] Urine specific gravity measu rementOrdered By: Antonio Templeton on 09-12-2023 Specific gravity (U) [Rel density] 1.020 1.002-1.030 [facility] Urine urobilinogen measureme ntOrdered By: Antonio Templeton on 09-12-2023 Urobilinogen Ql (U) Normal mg/dl Normal [facility] Laboratory - Microbiology an d Antimicrobial susceptibilityon 09-08-2023 SARS-CoV-2 (COVID-19) RNA FINA+probe Ql (Unsp spec) Not detected [facility] No Panel Informationon 09-08 POC Nasal Swab Influenza A,B Not detected [facility] POC Nasal Swab RSV Not detected [facility] Basophil percentageOrdered B y: Antonio Templeton on 08-02-2023 Bilirubin [Mass/Vol] 0.20 mg/dL 0.20-1.00 [facility] [place] Comment on above: For patients on eltr ombopag therapy, use of Dim[place] TBIL is not recommended. Chloride [Moles/Vol] 108 mmol/L 98-107 [facility] [place] Glucose [Mass/Vol] 86 mg/dL 74-106 [facility] Potassium [Moles/Vol] 4.0 mmol/L 3.5-5.1 [facility] Protein [Mass/Vol] 7.6 g/dL 6.4-8.2 [facility] Sodium [Moles/Vol] 136 mmol/L 136-145 [facility] WBC (Bld) [#/Vol] 10.7 10*3/uL 4.4-11.0 [facility] Blood erythrocytes count (nu mber/volume)Ordered By: Antonio Templeton on 08-02-2023 RBC (Bld) [#/Vol] 4.58 10*6/uL 4.2-5.4 [facility] Blood hemoglobin measurement (mass/volume)Ordered By: Antonio Templeton on 08-02-2023 Hemoglobin (Bld) [Mass/Vol] 12.1 g/dL 12.0-15.0 [facility] Blood platelet mean volumeOr dered By: Antonio Templeton on 08-02-2023 Platelet mean volume (Bld) [Entitic vol] 11.7 fL 6.2-12.0 [facility] Determination of erythrocyte mean corpuscular volume (MCV)Ordered By: Antonio Templeton on 08-02-2023 MCV (RBC) [Entitic vol] 86.7 fL 81-99 [facility] Hematocrit Auto (Bld) [Volum e fraction]Ordered By: Antonio Templeton on 08-02-2023 Hematocrit (Bld) [Volume fraction] 39.7 % 37-47 [facility] Laboratory - Chemistry and C hemistry - challengeOrdered By: Antonio Templeton on 08-02-2023 ALP [Catalytic activity/Vol] 80 U/L 45-117 [facility] ALT [Catalytic activity/Vol] 19 U/L 13-56 [facility] CO2 [Moles/Vol] 22.0 mmol/L 21.0-32.0 [facility] Cobalamin (Vitamin B12) [Mass/Vol] 251 pg/mL 211-911 [facility] Globulin (S) [Mass/Vol] 4.5 g/dL 2.2-4.2 [facility] Urea nitrogen/Creatinine [Mass ratio] 14.1 mg/mg 10-20 [facility] Laboratory - Hematology and Cell countsOrdered By: Antonio Templeton on 08-02-2023 Erythrocyte distribution width (RBC) [Entitic vol] 44.0 fL 35.1-43.9 [facility] Erythrocyte distribution width (RBC) [Ratio] 14.1 % 11.6-14.6 [facility] MCH (RBC) [Entitic mass] 26.4 pg 27.0-32.0 [facility] MCHC Auto (RBC) [Mass/Vol]Or dered By: Antonio Templeton on 08-02-2023 MCHC (RBC) [Mass/Vol] 30.5 g/dL 32-36 [facility] No Panel InformationOrdered By: Antonio Templeton on 08-02-2023 Estimated GFR (MDRD) Amer 130 mL/min >60 [facility] Comment on above: GFR Calc Estimated GFR (MDRD) Non-Af Amer 108 mL/min >60 [facility] Comment on above: Non- GFR Calc Fructosamine 210 umol/L 0-285 [facility] Comment on above: Published reference interval for apparently healthysubjects between age 20 and 60 is 205 - 285 umol/L and in apoorly controlled diabetic population is 228 - 563 umol/Lwith a mean of 396 umol/L.Performed at: [facility] [id number] Director: Esteban Mckenna PhD, Phone: [phone] Thyroid Stimulating Hormone (TSH) 2.05 uIU/mL 0.358-3.74 [facility] Platelets bldOrdered By: Carolina Templeton on 08-02-2023 Platelets (Bld) [#/Vol] 330 10*3/uL 150-450 [facility] Serum or plasma albumin fred urement (mass/volume)Ordered By: Antonio Templeton on 08-02-2023 Albumin [Mass/Vol] 3.1 g/dL 3.2-5.0 [facility] Serum or plasma albumin/glob ulin mass ratioOrdered By: Antonio Templeton on 08-02-2023 Albumin/Globulin [Mass ratio] 0.7 {ratio} 0.9-2.4 [facility] Serum or plasma calcium fred urement (mass/volume)Ordered By: Antonio Templeton on 08-02-2023 Calcium [Mass/Vol] 8.9 mg/dL 8.5-10.1 [facility] Serum or plasma creatinine m easurement (mass/volume)Ordered By: Antonio Templeton on 08-02-2023 Creatinine [Mass/Vol] 0.71 mg/dL 0.55-1.02 [facility] Comment on above: The validity of the calculated GFR & GFRAA in patients over 70 years has not been determined. Clinical correlation is essential. Serum or plasma ferritin thad surement (mass/volume)Ordered By: Antonio Templeton on 08-02-2023 Ferritin [Mass/Vol] 256 ng/mL 8-252 [facility] Serum or plasma folate measu rement (mass/volume)Ordered By: Antonio Templeton on 08-02-2023 Folate [Mass/Vol] 13.70 ng/mL 3.1-55.4 [facility] Serum or plasma urea nitroge n measurement (mass/volume)Ordered By: Antonio Templeton on 08-02-2023 Urea nitrogen [Mass/Vol] 10 mg/dL 7-18 [facility] Thin prep Papanicolaou smear with manual screeningOrdered By: Antonio Templeton on 08-02-2023 Thin prep Papanicolaou smear with manual screening 11 U/L 15-37 [facility] Thin prep Papanicolaou smear with manual screening 6 5-15 [facility] Whole blood hemoglobin A1c/t otal hemoglobin ratio (mass fraction)Ordered By: Antonio Templeton on 08-02-2023 HbA1c (Bld) [Mass fraction] 5.2 % 3.8-5.6 [facility] Comment on above: Normal < 5.7 % Predi abetic 5.7 - 6.4 % Diabetic >or= 6.5 % Please note range changes. Laboratory - Microbiology an d Antimicrobial susceptibilityon 06-13-2023 SARS-CoV-2 (COVID-19) RNA FINA+probe Ql (Unsp spec) Not detected [facility] No Panel InformationOrdered By: [facility] on 05-31-2023 Hepatitis B Surface Antibody Reactive [facility] Comment on above: Non Reactive: Incons istent with immunity less than <10 mIU/mL Reactive: Consistent with immunity greater than or equal to 10 mIU/mL Laboratory - Microbiology an d Antimicrobial susceptibilityon 11-08-2022 SARS-CoV-2 (COVID-19) RNA FINA+probe Ql (Unsp spec) Not detected [facility] No Panel Informationon 11-08 Influenza Types A,B Rapid (Clinic) Not detected [facility] Absolute lymphocyte countOrd ered By: Alexi Alexander on 10-24-2022 Lymphocytes Auto (Unsp spec) [#/Vol] 4.31 10*3/uL 0.83-4.51 [facility] Basophil percentageOrdered B y: Alexi Alexander on 10-24-2022 Basophil percentage 0-5 SEEN /hpf 0-5 [facility] Basophils/100 WBC (Bld) 0.2 % 0-1 [facility] Bilirubin [Mass/Vol] 0.20 mg/dL 0.20-1.00 [facility] Comment on above: For patients on eltr ombopag therapy, use of Dimension [place] TBIL is not recommended. Chloride [Moles/Vol] 105 mmol/L 98-107 [facility] Eosinophils/100 WBC (Bld) 0.8 % 0-5 [facility] Glucose [Mass/Vol] 98 mg/dL 74-106 [facility] Neutrophils (Bld) [#/Vol] 7.9 10*3/uL 2.0-7.7 [facility] Neutrophils/100 WBC (Bld) 60.3 % 47-70 [facility] Potassium [Moles/Vol] 3.8 mmol/L 3.5-5.1 [facility] Protein [Mass/Vol] 7.6 g/dL 6.4-8.2 [facility] Sodium [Moles/Vol] 140 mmol/L 136-145 [facility] WBC (Bld) [#/Vol] 13.2 10*3/uL 4.4-11.0 [facility] Bilirubin Test strip Ql (U)O rdered By: Alexi Alexander on 10-24-2022 Bilirubin Ql (U) Negative Negative [facility] Blood erythrocytes count (nu mber/volume)Ordered By: Alexi Alexander on 10-24-2022 RBC (Bld) [#/Vol] 4.33 10*6/uL 4.2-5.4 [facility] Blood hemoglobin measurement (mass/volume)Ordered By: Alexi Alexander on 10-24-2022 Hemoglobin (Bld) [Mass/Vol] 13.3 g/dL 12.0-15.0 [facility] Blood lymphocytes/100 leukoc ytesOrdered By: Alexi Alexander on 10-24-2022 Lymphocytes/100 WBC (Bld) 32.7 % 19-41 [facility] Blood monocytes/100 leukocyt esOrdered By: Alexi Alexander on 10-24-2022 Monocytes/100 WBC (Bld) 5.7 % 0-10 [facility] Blood platelet mean volumeOr dered By: Alexi Alexander on 10-24-2022 Platelet mean volume (Bld) [Entitic vol] 10.5 fL 6.2-12.0 [facility] Determination of erythrocyte mean corpuscular volume (MCV)Ordered By: Alexi Alexander on 10-24-2022 MCV (RBC) [Entitic vol] 91.0 fL 81-99 [facility] Hematocrit Auto (Bld) [Volum e fraction]Ordered By: Alexi Alexander on 10-24-2022 Hematocrit (Bld) [Volume fraction] 39.4 % 37-47 [facility] Ketones Test strip Ql (U)Ord ered By: Alexi Alexander on 10-24-2022 Ketones Ql (U) 5 mg/dl Negative [facility] Laboratory - Chemistry and C hemistry - challengeOrdered By: Alexi Alexander on 10-24-2022 HCG ( test) Ql (U) Negative [facility] Comment on above: Very dilute urine sp ecimens, as indicated by a low specificgravity, may not contain civil rights representative levels of hCG. If is still suspected, a first morning urinespecimen should be collected 48 hours later and tested. ALP [Catalytic activity/Vol] 121 U/L 45-117 [facility] ALT [Catalytic activity/Vol] 26 U/L 13-56 [facility] CO2 [Moles/Vol] 27.0 mmol/L 21.0-32.0 [facility] Globulin (S) [Mass/Vol] 4.1 g/dL 2.2-4.2 [facility] Lipase [Catalytic activity/Vol] 129 U/L 73-393 [facility] Urea nitrogen/Creatinine [Mass ratio] 13.4 mg/mg 10-20 [facility] Laboratory - Hematology and Cell countsOrdered By: Alexi Alexander on 10-24-2022 Erythrocyte distribution width (RBC) [Entitic vol] 40.3 fL 35.1-43.9 [facility] Erythrocyte distribution width (RBC) [Ratio] 12.2 % 11.6-14.6 [facility] Immature granulocytes/100 WBC (Bld) 0.300 % 0.0-0.9 [facility] Comment on above: IG% - Immature Granu locytes (promyelocytes, myelocytes and metamyelocytes) > 1% indicates that a LEFT SHIFT is Present. MCH (RBC) [Entitic mass] 30.7 pg 27.0-32.0 [facility] Nucleated RBC/100 WBC (Bld) [Ratio] 0 % 0-5 [facility] MCHC Auto (RBC) [Mass/Vol]Or dered By: Alexi Alexander on 10-24-2022 MCHC (RBC) [Mass/Vol] 33.8 g/dL 32-36 [facility] Mucus LM Ql (Urine sed)Order ed By: Alexi Alexander on 10-24-2022 Mucus Ql (Urine sed) 0 SEEN /hpf [facility] Nitrite Test strip Ql (U)Ord ered By: Alexi Alexander on 10-24-2022 Nitrite Ql (U) Negative Negative [facility] No Panel InformationOrdered By: Alexi Alexander on 10-24-2022 Estimated Creatinine Clearance Calc 109.21 ml/min [facility] Estimated GFR (MDRD) Amer 123 mL/min >60 [facility] Comment on above: GFR Calc Estimated GFR (MDRD) Non-Af Amer 102 mL/min >60 [facility] Comment on above: Non- GFR Calc Platelets bldOrdered By: Danielle Alexander on 10-24-2022 Platelets (Bld) [#/Vol] 290 10*3/uL 150-450 [facility] Protein Test strip Ql (U)Ord ered By: Alexi Alexander on 10-24-2022 Protein Ql (U) 30 mg/dl Negative [facility] Serum or plasma albumin fred urement (mass/volume)Ordered By: Alexi Alexander on 10-24-2022 Albumin [Mass/Vol] 3.5 g/dL 3.2-5.0 [facility] Serum or plasma albumin/glob ulin mass ratioOrdered By: Alexi Alexander on 10-24-2022 Albumin/Globulin [Mass ratio] 0.9 {ratio} 0.9-2.4 [facility] Serum or plasma calcium fred urement (mass/volume)Ordered By: Alexi Alexander on 10-24-2022 Calcium [Mass/Vol] 9.5 mg/dL 8.5-10.1 [facility] Serum or plasma creatinine m easurement (mass/volume)Ordered By: Alexi Alexander on 10-24-2022 Creatinine [Mass/Vol] 0.75 mg/dL 0.55-1.02 [facility] Comment on above: The validity of the calculated GFR & GFRAA in patients over 70 years has not been determined. Clinical correlation is essential. Serum or plasma urea nitroge n measurement (mass/volume)Ordered By: Alexi Alexander on 10-24-2022 Urea nitrogen [Mass/Vol] 10 mg/dL 7-18 [facility] Squamous epithelial cells de tection in urine sediment by light microscopyOrdered By: Alexi Alexander on 10-24-2022 Epithelial cells.squamous LM Ql (Urine sed) 0-5 SEEN /hpf 5-10 [facility] Thin prep Papanicolaou smear with manual screeningOrdered By: Alexi Alexander on 10-24-2022 Thin prep Papanicolaou smear with manual screening 14 U/L 15-37 [facility] Thin prep Papanicolaou smear with manual screening 8 5-15 [facility] Urine blood detectionOrdered By: Alexi Alexander on 10-24-2022 RBC Ql (U) 250 /ul Negative [facility] RBC Ql (U) 25-50 SEEN /hpf 0-5 [facility] Urine clarityOrdered By: Danielle Alexander on 10-24-2022 Clarity (U) Sl. Cloudy Clear [facility] Urine color determinationOrd ered By: Alexi Alexander on 10-24-2022 Color (U) Yellow Yellow [facility] Urine glucose detectionOrder ed By: Alexi Alexander on 10-24-2022 Glucose Ql (U) Normal mg/dl Normal [facility] Urine leukocyte esterase det ection by dipstickOrdered By: Alexi Alexander on 10-24-2022 Leukocyte esterase Test strip Ql (U) 25 /ul Negative [facility] Urine pHOrdered By: Alexi de los santos on 10-24-2022 pH (U) 6.5 [pH] 5.0 - 8.0 [facility] Urine sediment bacteria coun t by microscopy (number/high power field)Ordered By: Alexi Alexander on 10-24-2022 Bacteria LM.HPF (Urine sed) [#/Area] 0 /[HPF] None Seen [facility] Urine specific gravity measu rementOrdered By: Alexi Alexander on 10-24-2022 Specific gravity (U) [Rel density] 1.020 1.002-1.030 [facility] Urobilinogen Auto test strip Ql (U)Ordered By: Alexi Alexander on 10-24-2022 Urobilinogen Ql (U) Normal mg/dl Normal [facility] Albumin Elph [Mass/Vol]on Albumin [Mass/Vol] 4.2 g/dL [facility] Work Phone: Atypical perinuclear antineu trophil cytoplasmic antibodies measurementon 10-07-2021 Neutrophil cytoplasmic Ab.perinuclear.atypical IF (S) [Titer] <1:20 titer Neg:<1:20 [facility] Work Phone: Comment on above: The atypical pANCA p attern has been observed in asignificant percentage of patients with ulcerative colitis,primary sclerosing cholangitis and autoimmune hepatitis. Basophil percentageon 2021 Basophil percentage < 0.2 [facility] Work Phone: Erythrocyte sedimentation ra monster 10-07-2021 ESR (Bld) [Velocity] 18 mm/h 0-30 [facility] Work Phone: Interpretation of serum or p lasma protein pattern by immunofixation (narrative resulton 10-07-2021 Protein Fractions Immunofixation Leroy [Interp] See comment [facility] Work Phone: Comment on above: NOT OBSERVED Laboratory - Chemistry and C hemistry - challengeon 10-07-2021 Amylase [Catalytic activity/Vol] 21 U/L 5-55 [facility] Work Phone: No Panel Informationon 10-07 Addendum Document Comment [facility] Work Phone: Comment on above: Protein electrophore sis scan will follow via computer,mail, or membership advisor delivery. Immunoglobulin E 8 IU/mL [facility] Work Phone: Comment on above: Performed at: - [facility] [address] [id number] Director: Esteban Mckenna PhD, Phone: [phone] at: [facility] Lab[address] [id number] Director: Philipp Mosley MD, Phone: [phone] Centromere B Antibody <0.2 [facility] Work Phone: HOBBER Antibody 0.7 [facility] Work Phone: Serum DNA double strand anti body assay (units/volume)on 10-07-2021 DNA double strand Ab Qn (S) [IU]/mL [facility] Work Phone: Comment on above: Negative <5 Equivoca l 5 - 9 Positive >9 Serum Janice-1 antibody assay (u nits/volume)on 10-07-2021 Janice-1 extractable nuclear Ab Qn (S) <0.2 [facility] Work Phone: Serum Scl-70 extractable nuc lear antibody assay (units/volume)on 10-07-2021 SCL-70 extractable nuclear Ab Qn (S) <0.2 [facility] Work Phone: Serum Templeton extractable nucl ear antibody detectionon 10-07-2021 Templeton extractable nuclear Ab Ql (S) <0.2 [facility] Work Phone: Serum [id number] measu rement by electrophoresison 10-07-2021 Alpha 1 globulin Elph [Mass/Vol] 0.3 g/dL [facility] Work Phone: Alpha 1 globulin Elph [Mass/Vol] 1.2 g/dL [facility] Work Phone: Serum classic neutrophil cyt oplasmic antibody assay (units/volume)on 10-07-2021 Neutrophil cytoplasmic Ab.classic Qn (S) <1:20 titer Neg:<1:20 [facility] Work Phone: Serum globulin measurement ( mass/volume)on 10-07-2021 Globulin (S) [Mass/Vol] 4.3 g/dL [facility] Work Phone: Serum mitochondria antibody detectionon 10-07-2021 Mitochondria Ab Ql (S) <20.0 Units [facility] Work Phone: Comment on above: Negative 0.0 - 20.0 Equivocal 20.1 - 24.9 Positive >24.9Mitochondrial (M2) Antibodies are found in 90-96% ofpatients with primary biliary cirrhosis.Performed at: [employer] [id number] Director: Esteban Mckenna PhD, Phone: [phone] Serum or plasma C reactive p rotein measurement (mass/volume)on 10-07-2021 CRP [Mass/Vol] 19.70 mg/L 0.0-3.0 [facility] Work Phone: Comment on above: C-Reactive Protein ( CRP) provides useful information for thediagnosis, therapy and monitoring of inflammatory processesand associated diseases. For the evaluation of Relative Riskfor Cardiovascular Disease, a High Sensitivity CRP (HSCRP)should be ordered. Serum or plasma IgA measurem ent (mass/volume)on 10-07-2021 IgA [Mass/Vol] 232 mg/dL [facility] Work Phone: Serum or plasma IgG measurem ent (mass/volume)on 10-07-2021 IgG [Mass/Vol] 1197 mg/dL [facility] Work Phone: Serum or plasma IgM measurem ent (mass/volume)on 10-07-2021 IgM [Mass/Vol] 197 mg/dL [facility] Work Phone: Serum or plasma beta globuli n measurement by electrophoresis (mass/volume)on 10-07-2021 Beta globulin Elph [Mass/Vol] 1.4 g/dL [facility] Work Phone: Serum or plasma gamma globul in measurement by electrophoresis (mass/volume)on 10-07-2021 Gamma globulin Elph [Mass/Vol] 1.4 g/dL [facility] Work Phone: Serum or plasma immunoelectr ophoresis interpretation (nominal result)on 10-07-2021 Interpretation IEP [Interp] Comment [facility] Work Phone: Comment on above: No monoclonality det ected. Serum perinuclear neutrophil cytoplasmic antibody titer by immunofluorescenceon 10-07-2021 Neutrophil cytoplasmic Ab.perinuclear IF (S) [Titer] <1:20 titer Neg:<1:20 [facility] Work Phone: Comment on above: The presence of posi tive fluorescence exhibiting P-ANCA orC-ANCA patterns alone is not specific for the diagnosis ofWegener's Granulomatosis (WG) or microscopic polyangiitis.Decisions about treatment should not be based solely onANCA IFA results. The [employer] ANCA Group Consensusrecommends follow up testing of positive sera with both IN-3 and MPO-ANCA enzyme immunoassays. As many as 5% serumsamples are positive only by EIA. Ref. AM J Clin Dmtccd2698;111:507-513. Thin prep Papanicolaou smear with manual screeningon 10-07-2021 Thin prep Papanicolaou smear with manual screening 265 U/L 84-246 [facility] Work Phone: Thin prep Papanicolaou smear with manual screening 1.0 [facility] Work Phone: Total protein bloodon 2021 Protein [Mass/Vol] 8.5 g/dL [facility] Work Phone: Laboratory - Microbiology an d Antimicrobial susceptibilityon 09-07-2021 SARS-CoV-2 (COVID-19) RNA FINA+probe Ql (Unsp spec) Not detected Not Detect [facility] Work Phone: Comment on above: Normal Reference Ran ge: Not DetectedMethod:(RT-PCR) real-time reverse transcriptase PCRLuminex GHULAM Instrument*The Food and Drug Administration (FDA) has issued an Emergency Use Authorization (EAU) for the GHULAM SARS-CoV-2 Assay for the rapid detection of the virus that causes COVID-19. This test has been validated, but the [facility] independent review of this validation is pending.*Negative results do not preclude infection and should not be used as the sole basis for treatment or patient management. Optimum specimen types and timing for peak viral levels during infections caused by SARS-CoV-2 have not been determined. Collection of multiple specimens from the same patient may be necessary to detect the virus. The possibility of a false negative result should be considered if the patient has clinical presentation or has had recent exposure. Laboratory - Microbiology an d Antimicrobial susceptibilityon 09-01-2021 SARS-CoV-2 (COVID-19) RNA FINA+probe Ql (Unsp spec) Not detected [facility] Work Phone: Vital Signs Date Time Vital Sign Value Performing Clinician Faci lity 03-21-2025 15:27-0400 Body height 167.[address] Antonio Templeton MD Work Phone: [facility] 03-21-2025 15:27-0400 Body mass index (BMI) [Ratio] 39.5 kg/m2 Dr. Antonio Templeton MD Work Phone: [facility] 03-21-2025 15:27-0400 Body weight 111.[address] Antonio Templeton MD Work Phone: [facility] 03-21-2025 15:27-0400 Diastolic blood pressure 77 mm[Hg] Dr. Antonio Templeton MD Work Phone: [facility] 03-21-2025 15:27-0400 Systolic blood pressure 113 mm[Hg] Dr. Antonio Templeton MD Work Phone: [facility] 01-05-2024 14:15-0400 Body temperature 98.9 [degF] Dr. Antonio Templeton Work Phone: [facility] 01-05-2024 14:15-0400 Diastolic blood pressure 80 mm[Hg] Dr. Antonio Templeton Work Phone: [facility] 01-05-2024 14:15-0400 Heart rate 93 /min Dr. Antonio Templeton Work Phone: [facility] 01-05-2024 14:15-0400 Respiratory rate 16 /min Dr. Antonio Templeton Work Phone: [facility] 01-05-2024 14:15-0400 SaO2% (BldA) [Mass fraction] 98 % Dr. Antonio Templeton Work Phone: [facility] 01-05-2024 14:15-0400 Systolic blood pressure 128 mm[Hg] Dr. Antonio Templeton Work Phone: [facility] 01-05-2024 12:12-0400 Body height 167.[address] Antonio Templeton Work Phone: [facility] 01-05-2024 12:12-0400 Body mass index (BMI) [Ratio] 39.2 kg/m2 Dr. Antonio Templeton Work Phone: 1(028)[phone] [place] [address] 01-05-2024 12:12-0400 Body weight 110.[address] Antonio Templeton Work Phone: 1(605)842-648141 [address] 12-16-2023 09:34-0400 Body height 167.[address] Antonio Templeton Work Phone: 6(375)497-153141 [address] 12-16-2023 09:34-0400 Body mass index (BMI) [Ratio] 39.5 kg/m2 Dr. Antonio Templeton Work Phone: 8(348)313-516827 [place] [address] 12-16-2023 09:34-0400 Body weight 111.[address] Antonio Templeton Work Phone: [facility] 11-01-2023 05:29-0500 Body temperature 98 [degF] Dr. Antonio Templeton Work Phone: [facility] 11-01-2023 05:29-0500 Diastolic blood pressure 90 mm[Hg] Dr. Antonio Templeton Work Phone: [facility] 11-01-2023 05:29-0500 Heart rate 78 /min Dr. Antonio Templeton Work Phone: 9(522)160-615827 [place] [address] 11-01-2023 05:29-0500 Respiratory rate 18 /min Dr. Antonio Templeton Work Phone: [facility] 11-01-2023 05:29-0500 SaO2% (BldA) [Mass fraction] 97 % Dr. Antonio Templeton Work Phone: [facility] 11-01-2023 05:29-0500 Systolic blood pressure 138 mm[Hg] Dr. Antonio Templeton Work Phone: 5(823)517-753527 [place] [address] 11-01-2023 01:38-0500 Body height 167.[address] Antonio Templeton Work Phone: 9(000)[phone] [address] 11-01-2023 01:38-0500 Body mass index (BMI) [Ratio] 40.6 kg/m2 Dr. Antonio Templeton Work Phone: 4(690)[phone] [place] [address] 11-01-2023 01:38-0500 Body weight 114.[address] Antonio Templeton Work Phone: 6(653)[phone] [place] [address] 09-08-2023 08:06-0500 Body height 167.[address] Antonio Templeton Work Phone: 5(639)[phone] [address] 09-08-2023 08:06-0500 Body mass index (BMI) [Ratio] 40.6 kg/m2 Dr. Antonio Templeton Work Phone: 8(308)158-533727 [place] [address] 09-08-2023 08:06-0500 Body temperature 98.6 [degF] Dr. Antonio Templeton Work Phone: [facility] 09-08-2023 08:06-0500 Body weight 114.[address] Antonio Templeton Work Phone: 3(746)257-600827 [place] [address] 09-08-2023 08:06-0500 Diastolic blood pressure 78 mm[Hg] Dr. Antonio Templeton Work Phone: [facility] 09-08-2023 08:06-0500 Heart rate 78 /min Dr. Antonoi Templeton Work Phone: [facility] 09-08-2023 08:06-0500 Respiratory rate 15 /min Dr. Antonio Templeton Work Phone: [facility] 09-08-2023 08:06-0500 SaO2% (BldA) [Mass fraction] 98 % Dr. Antonio Templeton Work Phone: [facility] 09-08-2023 08:06-0500 Systolic blood pressure 122 mm[Hg] Dr. Antonio Templeton Work Phone: [facility] 09-05-2023 16:14-0500 Body mass index (BMI) [Ratio] 40.6 kg/m2 Dr. Antonio Templeton Work Phone: [facility] 09-05-2023 16:14-0500 Body weight 114.[address] Antonio Templeton Work Phone: [facility] 11-17-2022 08:34-0400 Body height 167.[address] Antonio Templeton Work Phone: [facility] 11-17-2022 08:34-0400 Body mass index (BMI) [Ratio] 40.1 kg/m2 Dr. Antonio Templeton Work Phone: 3([phone])[phone] [place] [address] 11-17-2022 08:34-0400 Body weight 112.[address] Antonio Templeton Work Phone: [facility] 11-17-2022 08:34-0400 Diastolic blood pressure 76 mm[Hg] Dr. Antonio Templeton Work Phone: [facility] 11-17-2022 08:34-0400 Systolic blood pressure 111 mm[Hg] Dr. Antonio Templeton Work Phone: [facility] 11-08-2022 11:57-0400 Body temperature 98 [degF] Dr. Antonio Templeton Work Phone: [facility] 11-08-2022 11:57-0400 Diastolic blood pressure 74 mm[Hg] Dr. Antonio Templeton Work Phone: [facility] 11-08-2022 11:57-0400 Heart rate 88 /min Dr. Antonio Templeton Work Phone: [facility] 11-08-2022 11:57-0400 Respiratory rate 16 /min Dr. Antonio Templeton Work Phone: [facility] 11-08-2022 11:57-0400 SaO2% (BldA) [Mass fraction] 98 % Dr. Antonio Templeton Work Phone: [facility] 11-08-2022 11:57-0400 Systolic blood pressure 124 mm[Hg] Dr. Antonio Templeton Work Phone: [facility] 10-24-2022 17:30-0500 Body temperature 98.2 [degF] Dr. Antonio Templeton Work Phone: [facility] 10-24-2022 17:30-0500 Diastolic blood pressure 70 mm[Hg] Dr. Antonio Templeton Work Phone: [facility] 10-24-2022 17:30-0500 Heart rate 88 /min Dr. Antonio Templeton Work Phone: [facility] 10-24-2022 17:30-0500 Respiratory rate 15 /min Dr. Antonio Templeton Work Phone: [facility] 10-24-2022 17:30-0500 SaO2% (BldA) [Mass fraction] 97 % Dr. Antonio Templeton Work Phone: [facility] 10-24-2022 17:30-0500 Systolic blood pressure 132 mm[Hg] Dr. Antonio Templeton Work Phone: [facility] 10-24-2022 14:28-0500 Body height 167.[address] Antonio Templeton Work Phone: [facility] 10-24-2022 14:28-0500 Body mass index (BMI) [Ratio] 40.3 kg/m2 Dr. Antonio Templeton Work Phone: [facility] 10-24-2022 14:28-0500 Body weight 113.[address] Antonio Templeton Work Phone: [facility] 09-01-2021 06:47-0500 Body height 165.[address] Antonio Templeton Work Phone: [facility] Work Phone: Encounters Encounter Date Encounter Type Care Provider Facility Start: 04-12-[facility] Start: 04-02-2025 End: 04-02-[address] Antonio Templeton MD Work Phone: [facility] Start: 04-02-2025 End: 04-02-2025 Patient encounter procedure Darin Atkins [place] [facility] Work Phone: Start: 03-21-2025 End: 03-21-2025 Patient encounter procedure Lorraine Sahu CNM -[facility] Work Phone: Start: 03-21-2025 End: 03-21-[address] Antonio Templeton MD Work Phone: -[facility] Start: 02-26-2025 Non-patient / Non-visit Dr. Stormy Carreon MD -[facility] Work Phone: Start: 01-28-2025 End: 01-28-2025 [facility] Start: 01-28-2025 End: 01-28-2025 Subsequent hospital visit by physician Tonja Das DO Work Phone: [facility] Comment on above: Abnormal plain x-ray of sacrum; Elevated C-reactive protein (CRP); Pain of left hip; Elevated sed rate Start: 01-11-2025 ambulatory Stormy Carreon Facility: [facility] Start: 01-04-2025 End: 01-04-2025 [facility] Start: 11-30-2024 ambulatory TONJA L [facility] Start: 11-16-2024 End: 11-16-[address] Antonio Templeton MD Work Phone: [facility] Work Phone: Start: 11-16-2024 End: 11-16-[address] Antonio Templeton MD Work Phone: -[facility] Work Phone: Start: 11-16-2024 End: 11-16-2024 ambulatory REBECCA VALLE Facility:[facility] Start: 11-02-2024 End: 11-02-2024 ambulatory [facility] Start: 11-02-2024 ambulatory [facility] Start: 10-19-2024 ambulatory [facility] Start: 10-12-2024 End: 10-12-2024 Patient encounter procedure Nu Kelly [facility] Work Phone: Start: 10-12-2024 End: 10-12-2024 ambulatory Nu Kelly Facility:[facility] Start: 07-13-2024 End: 07-13-2024 ambulatory Timothy Thompson Facility:[facility] Start: 07-13-2024 End: 07-13-2024 ambulatory [facility] Friend Facility:[facility] Start: 06-26-2024 End: 06-26-2024 ambulatory [facility] Friend Facility:[facility] Start: 05-08-2024 End: 05-08-2024 ambulatory [facility] Friend Facility:[facility] Start: 01-05-2024 End: 01-05-2024 Admission to same day surgery center Dr. Antonio Templeton Work Phone: [facility] Start: 01-05-2024 End: 01-05-[address] Antonio Templeton Work Phone: [facility] Work Phone: Start: 12-27-2023 End: 12-27-[address] Antonio Templeton Work Phone: [facility] Work Phone: Start: 12-27-2023 End: 12-27-[address] Antonio Templeton Work Phone: [facility]-Cat Scan, [facility] Work Phone: Start: 12-16-2023 End: 12-16-[address] Antonio Templeton Work Phone: [facility] Work Phone: Start: 12-16-2023 End: 12-16-[address] Antonio Templeton Work Phone: [facility] Work Phone: Start: 11-01-2023 End: 11-01-2023 Emergency department patient visit Dr. Antonio Templeton Work Phone: [facility]Emergency [facility] Work Phone: Start: 10-20-2023 End: 10-20-[address] Antonio Templeton Work Phone: [facility] Work Phone: Start: 09-19-2023 End: 09-19-[address] Antonio Templeton Work Phone: [facility] Work Phone: Start: 09-12-2023 End: 09-12-[address] Antonio Templeton Work Phone: [facility] Work Phone: Start: 09-12-2023 End: 09-12-[address] Antonio Templeton Work Phone: [facility] Start: 09-08-2023 End: 09-08-[address] Antonio Templeton Work Phone: [facility] Work Phone: Start: 09-05-2023 End: 09-05-[address] Antonio Templeton Work Phone: [facility] Work Phone: Start: 08-02-2023 End: 08-02-[address] Antonio Templeton Work Phone: [facility] Work Phone: Start: 08-02-2023 End: 08-02-[address] [facility] Start: 06-13-2023 End: 06-13-[address] Antonio Templeton Work Phone: [facility] Work Phone: Start: 05-31-[address] Antonio Patterson [facility] Work Phone: [facility] Start: 11-17-2022 End: 11-17-[address] Antonio Templeton Work Phone: [facility] Work Phone: Start: 11-17-2022 End: 11-17-[address] Antonio Templeton Work Phone[facility] Start: 11-17-2022 End: 11-17-[address] Antonio Templeton Work Phone: [facility] Start: 11-08-2022 End: 11-08-[address] Antonio Templeton Work Phone: [facility] Start: 10-24-2022 End: 10-24-2022 Emergency department patient visit Dr. Antonio Templeton Work Phone: [facility] Start: 08-24-2022 End: 08-24-[address] Antonio Templeton Work Phone: [facility] Start: 12-11-2021 End: 12-11-[address] Antonio Templeton Work Phone: [facility], [facility] Start: 11-19-2021 End: 11-19-[address] Antonio Templeton Work Phone: [facility] Start: 10-07-2021 End: 10-07-[address] Antonio Templeton Work Phone: [facility] Start: 10-07-2021 End: 10-07-[address] Antonio Templeton Work Phone: [facility] Start: 09-07-2021 End: 09-07-[address] Antonio Templeton Work Phone: [facility], [place] Start: 09-01-2021 End: 09-01-[address] Antonio Templeton Work Phone: [facility] Procedures Date Procedure Procedure Detail Performing Clinician Start: 11-16-[address] Antonio Templeton MD Work Phone: Start: 11-16-2024 Plain X-ray of bilat eral sacroiliac joints Dr. Antonio Templeton MD Work Phone: Start: 11-16-2024 Plain x-ray of pelvi s and lower extremity Dr. Antonio Templeton MD Work Phone: Start: 11-16-2024 X-ray of knee, four or more views Dr. Antonio Templeton MD Work Phone: Start: 01-05-2024 Cystoscopy and retro grade pyelography Dr. Antonio Templeton Work Phone: Start: 01-05-2024 Fluoroscopic guidance Zafar Templeton Work Phone: Start: 12-27-2023 CT of abdomen and pe lvis without contrast Dr. Antonio Templeton Work Phone: Start: 11-01-2023 CT of abdomen and pe lvis without contrast Dr. Antonio Templeton Work Phone: Start: 09-12-[address] Antonio Templeton Work Phone: Start: 10-24-2022 CT of abdomen and pe lvis without contrast Dr. Antonio Templeton Work Phone: Start: 12-11-[address] Antonio Templeton Work Phone: Start: 12-11-[address] Antonio Templeton Work Phone: Start: 09-07-2021 Plain chest X-ray Dr. Nita Templeton Work Phone: Plan of Treatment Date Care Activity Detail Author Start: 05-31-2033 Administration of diphtheria + tetanus + acellular pertussis vaccine DTAP/TDAP/TD VACCINE (3 - Td or Tdap) [facility] Start: 04-12-2025 End: 04-12-2025 Patient encounter procedure 04/12/2025 9:00 AM EDT Office Visit [facility] [address] [place] [address] [address] [place] [address] Tonja Das DO [address] [place] [address] [address] [place] [address] [facility] Start: 04-29-2024 COVID-19 VACCINE ( season) COVID-19 VACCINE ( season) [facility] Start: 01-05-2024 Patient discharge [facility] Start: 12-16-2023 Aldosterone [Mass/vo lume] in Serum or Plasma [facility] Start: 12-16-2023 Angiotensin converti ng enzyme [Enzymatic activity/volume] in Serum or Plasma [facility] Start: 12-16-2023 Catecholamines [Moles/volume] in Plasma [facility] Start: 12-16-2023 Corticotropin [Mass/volume] in Plasma [facility] Start: 12-16-2023 Gastrin [Mass/volume ] in Serum or Plasma [facility] Start: 12-16-2023 IgG subclass panel [Mass/volume] - Serum [facility] Start: 12-16-2023 Serum immunofixation [facility] Start: 12-16-[address] [facility] Start: 11-01-[address] [facility] Start: 11-17-2022 Liquid based cervica l cytology screening [facility] Start: 10-24-[address] [facility] Start: 2017 ANNUAL WELLNESS VISIT ANNUAL WELLNES S VISIT [facility] Start: 2011 Depression screening using PHQ-9 (Patient Health Questionnaire 9) score DEPRESSION SCREENING [facility] Start: 1999 Screening for malign ant neoplasm of cervix PAP SMEAR [facility] Albumin [Moles/volum e] in Serum or Plasma [facility] Albumin/Globulin ratio [facility] Calculus analysis [facility] DOPamine [Mass/volum e] in Serum or Plasma [facility] Electrophoresis: [id number] [facility] Electrophoresis: calos ma globulin [facility] EPINEPHrine [Mass/vo lume] in Plasma [facility] Globulin measurement [facility] IgA [Mass/volume] in Serum or Plasma [facility] IgG [Mass/volume] in Serum or Plasma [facility] IgG subclass 1 [Mass/volume] in Serum [facility] IgG subclass 2 [Mass/volume] in Serum [facility] IgG subclass 3 [Mass/volume] in Serum [facility] IgG subclass 4 [Mass/volume] in Serum [facility] IgM [Mass/volume] in Serum or Plasma [facility] Measurement of weigh t of calculus [facility] End: 01-28-2025 MR Pelvis WO contrast [facility] Work Phone: Comment on above: 1 Occurrences starti ng 01/28/2025 until 01/28/2025 Origin of Stone [facility] Path report.final Dx Spec [facility] Patient Education [facility] Work Phone: Patient referral [facility] Work Phone: Plasma norepinephrin e measurement [facility] Protein electrophore sis panel - Serum or Plasma [facility] Specimen color determination [facility] Immunizations Immunization Date Immunization Notes Care Provider Fa terry 05-31-2023 influenza, injectabl e, quadrivalent, preservative free Dr. Antonio Templeton Work Phone: [facility] 05-31-2023 tetanus toxoid, redu david diphtheria toxoid, and acellular pertussis vaccine, adsorbed Dr. Antonio Templeton Work Phone: [facility] 08-24-2022 influenza, injectabl e, quadrivalent, preservative free Dr. Antonio Templeton Work Phone: [facility] 08-24-2022 influenza, seasonal, injectable Dr. Antonio Templeton Work Phone: [facility] 05-26-2021 influenza, injectabl e, quadrivalent, preservative free Dr. Antonio Templeton Work Phone: [facility] 05-26-2021 influenza, seasonal, injectable Dr. Antonio Templeton Work Phone: [facility] 10-14-2020 Covid (Moderna) Dr. Antonio Soriano Work Phone: [facility] 09-16-2020 Covid (Moderna) Dr. Antonio Soriano Work Phone: [facility] 07-03-2020 influenza, injectabl e, quadrivalent, preservative free Dr. Antonio Templeton Work Phone: [facility] 07-03-2020 influenza, seasonal, injectable Dr. Antonio Templeton Work Phone: [facility] Payers Date Payer Category Payer Self-pay [id number] 2024 Unknown [id number] 2023 Commercial Managed C are - PPO [employer] [id number] 1999 Unknown [id number]. 2.297 1999 Unknown [id number] [id number]. 2.297 1999 Unknown [id number] 2.840.1.549777.3.579. 2.297 1999 Unknown [id number] 2.16840.1.098537.3.579. 2.297 1999 Unknown [id number] 2.840.1.206847.3.579. 2.297 1999 Unknown [id number] 2.0.1.344120.3.579. 2.297 1999 Unknown [id number] 2.0.1.999996.3.579. 2.297 Private Health Insurance A01 [id number] Self-pay [id number] Unknown [id number] Unknown [id number] Unknown [facility] [id number] Unknown [id number] 2.840.1.469221.3.579. 2.462 Unknown [id number] 2.840.1.705844.3.579. 2.462 Unknown [id number] 2.840.1.047550.3.579. 2.462 Unknown [id number] 2.840.1.802646.3.579. 2.462 Unknown [id number] 2.840.1.126870.3.579. 2.462 Unknown [id number] 2.16.840.1.050103.3.579. 2.462 Unknown [id number] 2.16.840.1.642165.3.579. 2.462 Unknown [id number] 2.16.840.1.097415.3.579. 2.462 Social History Date Type Detail Facility Start: 11-19-2021 End: 01-02-2024 Tobacco smoking status NHIS Unknown if ever smoked [facility] Start: 2000 Sex Assigned At Female W [facility] Start: 01-31-2024 End: 11-02-2024 Tobacco smoking status NHIS Never smoked tobacco (finding) [facility] Start: 11-22-2024 Sex Female (finding) [facility] Start: 11-02-2024 Tobacco use and exposure Smokeless tobacco non-user [facility] Start: 01-04-2025 Alcoholic beverage intake Current drinker of alcohol (finding) [facility] Start: 01-04-2025 History of Social function [facility] Start: 01-04-2025 Tobacco use panel [facility] Start: 11-02-2024 Alcohol Comment socially [facility] Start: 2000 Sex assigned at Not on file [facility] NEGATED: Highlighted row [facility] Medical Equipment Procedure Code Equipment Code Equipment Origin al Text Equipment Identifier Dates Cystoscopy, with retrograde pyelogram, ureteroscopy, laser procedure, and stent inser Polymeric ureteral stent [id number] FDA Start: 01-05-2024 Goals Date Patient Goal Desired Activity /State Mental Status Date Assessment Result Facility 01-05-2024 Cognitive function Voice/Name [facility] Work Phone: 10-24-2022 Cognitive function Level Of Cons ciousness Awake;Alert;Appropriate;Follow s Commands [facility] Work Phone: Clinical Notes 01-05-2024 to 03-21-2025 Note Date & Type Note Facility 03-21-2025 Evaluation note Diagnosis Onset Date Resolution Contraceptive management acute March 21, 2025 3:24pm [facility] Work Phone: 1(684) 853-566803-21-2025 Radiology Diagnostic study note [facility] Imaging Services [address] [place] [address] HIP, UNI W/ Pelvis 2-3 Views MR#: [id number] Acct: [id number] Name: HILDA MORGAN Rep #: [id number] : 2000 From: Amberly Black MD PCP: Dr. Antonio Templeton MD Status: REG CLI Study:HIP, UNI W/ Pelvis 2-3 Views Date of Ex am: 11/16/24 Exam# [id number] Ordering Dr: TONJA DAS EXAM: XR Left Hip With Pelvis When Performed, 2 or 3 Views CLINICAL INDICATION: HIP PAIN TECHNIQUE: Two or three views of the left hip with pelvis when performed. COMPARISON: No relevant prior studies available. FINDINGS: BONES/JOINTS: Unremarkable. No acute fracture. No dislocation. SOFT TISSUES: Unremarkable. RAD/HIP, UNI W/ Pelvis 2-3 Views IMPRESSION: Normal left hip x-rays. [facility] CC: Dr. Antonio Templeton MD; TONJA DAS ~ Tool Clerk: Signed [facility]03-21-2025 Radiology Diagnostic study note [facility] Imaging Services [address] [place], [place] [id number] Knee 4 or More Views MR#: [id number] Acct: [id number] Name: HILDA MORGAN Rep #: [id number] : 2000 From: Amberly Black MD PCP: Dr. Antonio Templeton MD Status: REG CLI Study:Knee 4 or More Views Date of Exam: 11/16/24 Exam# [id number] Ordering Dr: TONJA DAS EXAM: XR Right Knee Complete, 4 or More Views CLINICAL INDICATION: CHRONIC PAIN OF LEFT KNEE AND HIP TECHNIQUE: Four or more views of the right knee. COMPARISON: No relevant prior studies available. FINDINGS: BONES/JOINTS: Unremarkable. No acute fracture. No dislocation. SOFT TISSUES: Unremarkable. RAD/Knee 4 or More Views IMPRESSION: No acute fracture. Reading Location: [facility] CC: Dr. Antonio Templeton MD; TONJA DAS ~ Tool Clerk: Signed [facility]03-21-2025 Radiology Diagnostic study note [facility] Imaging Services [address] [place] [address] S-I Jts 3 or More Views MR#: [id number] Acct: [id number] Name: HILDA MORGAN Rep #: [id number] : 2000 From: Amberly Black MD PCP: Dr. Antonio Templeton MD Status: REG CLI Study:S-I Jts 3 or More Views Date of Exam: 11/16/24 Exam# [id number] Ordering Dr: TONJA DAS EXAM: XR S-I Jts 3 CLINICAL INDICATION: CHRONIC PAIN PAIN IN LEFT HIP AND KNEE TECHNIQUE: 3 views of the sacroiliac joints. COMPARISON: No relevant prior studies available. FINDINGS: Mild degenerative change of the sacroiliac joints, bilaterally. RAD/S-I Jts 3 or More Views IMPRESSION: Degenerative changes as above. Reading Location: [facility] CC: Dr. Antonio Templeton MD; TONJA DAS ~ Tool Clerk: Signed [facility]03-21-2025 Radiology Diagnostic study note [facility] Imaging Services [address] [place], [place] [id number] Knee 4 or More Views MR#: [id number] Acct: [id number] Name: HILDA MORGAN Rep #: [id number] : 2000 From: Amberly Black MD PCP: Dr. Antonio Templeton MD Status: REG CLI Study:Knee 4 or More Views Date of Exam: 11/16/24 Exam# [id number] Ordering Dr: TONJA DAS EXAM: XR Left Knee Complete, 4 or More Views CLINICAL INDICATION: CHRONIC KNEE PAIN HIP PAIN TECHNIQUE: Four or more views of the left knee. COMPARISON: No relevant prior studies available. FINDINGS: BONES/JOINTS: Unremarkable. No acute fracture. No dislocation. SOFT TISSUES: Unremarkable. RAD/Knee 4 or More Views IMPRESSION: No acute fracture. Reading [facility] CC: Dr. Antonio Templeton MD; TONJA DAS ~ Tool Clerk: Signed [facility]02-14-2025 Evaluation note* Diagnosis Onset Date Resolution Status Admit Date Elevated C-reactive protein (CRP) acute October 12, 025 12:26pm Irritable bowel syndrome with diarrhea chronic October 12 025 12:26pm [facility] Work Phone: 1(595) 466-621405-09-2024 [facility] Chief complaint+Reason for visit Narrative* Chief Complaint COVID-19 COV TEST Irritable bowel syndrome E ORDER 6 WK FU FATTY LIVER Reason for Visit Rheumatoid arthritis IBS (irritable bowel syndrome) Fatty liver Irritable bowel syndrome with diarrhea IBS (irritable bowel syndrome) [facility] Work Phone: Chief complaint+Reason for visit Narrative* Chief Complaint COVID-19 EST CARE SORE THROAT, CHILLS Reason for Visit Back pain Segmental and somatic dysfunction of cervical region Segmental and somatic dysfunction of lumbar region Segmental and somatic dysfunction of sacral region Segmental and somatic dysfunction of thoracic region Acute upper respiratory infection Contact with and (suspected) exposure to other viral communicable diseases URI (upper respiratory infection) [facility] Work Phone: Discharge summary Author Stormy Carreon [facility] January 05, 2024 1:50pm Note Date/Time January 05, 2024 1:48pm [facility] Medical Records Department [address] [place] [address] Instructions for Home/Discharge Instructions 01/05/24 1348 MR#: [id number] Acct: [id number] Name: HILDA MORGAN Rep #:[id number] : 2000 23 From: Stormy Stephen PCP: Dr. Antonio Templeton MD Status:REG [facility] Discharge Instructions Diet Discharge Diet: No restrictions Activity Discharge Activity: Return to Normal Activity Dressing / Incision Call your doctor if you observe: Fever of 101 or Higher, Inability to urinate and Inability to have a bowel movement Follow Up Care Please Follow Up With: Stormy Carreon MD When: Next week for stent removal Test Results: Test results from this visit will be discussed in further detail at your follow- up appointment, if applicable. Discharge Plan Admission Attending Provider: Stormy Carreon Primary Care Provider: Antonio Templeton Discharge Orders/Prescriptions Prescriptions: New phenazopyridine [Pyridium] 200 mg tablet 200 mg PO TID PRN PRN (Reason: Bladder Spasms) 7 Days Qty: 30 0RF sulfamethoxazole-trimethoprim [sulfamethoxazole-trimethoprim] 800-160 mg tablet 1 tab PO BID 3 Days Qty: 6 0RF oxycodone-acetaminophen [Percocet] 5-325 mg tablet 1 tab PO Q8H PRN (Reason: pain) 3 Days Qty: 10 0RF Continued hyoscyamine sulfate 0.125 mg tablet,disintegrating 0.125 mg PO BID-QID PRN (Reason: dyspepsia) Qty: 30 0RF celecoxib 200 mg capsule 200 mg PO DAILY ascorbic acid (vitamin C) 500 mg capsule 500 mg PO BID multivitamin Tablet 1 tab PO DAILY pantoprazole 40 mg tablet,delayed release (DR/EC) 40 mg PO QAM Qty: 90 1RF tamsulosin 0.4 mg capsule 0.4 mg PO Q24H PRN (Reason: KID STON) Patient Comments: TAKE 1 CAPSULE BY MOUTH DAILY TO TWICE DAILY TO PASS KIDNEY STONE vitamin B complex [Vitamins B Complex] Capsule 1 cap PO DAILY hydrocodone-acetaminophen 5-325 mg tablet 1 tab PO Q6H PRN PRN (Reason: Pain) 3 Days Qty: 10 0RF ferrous sulfate 325 mg (65 mg iron) tablet 325 mg PO DAILY PRN (Reason: LOW IRON) meclizine 12.5 mg tablet 12.5 mg PO Q8H PRN PRN (Reason: dizziness) norgestimate-ethinyl estradiol [Sprintec (28)] 0.25-35 mg-mcg tablet 1 tab PO DAILY Qty: 84 4RF Rx Instructions: take active pills only Referrals / Follow Up: Antonio Templeton MD [Primary Care Provider] - Disposition Disposition (needs filled in before D/C Order can be placed): Home, Self Care 01/05/24 1350<Electronically signed by Stormy Carreon MD>Stormy Carreon MD CC: Dr. Antonio Templeton MD ~ Signed [facility] Work Phone: evaluation note* Diagnosis Onset Date Resolution Status Rheumatoid arthritis acute IBS (irritable bowel syndrome) chronic Fatty liver acute Irritable bowel syndrome with diarrhea acute IBS (irritable bowel syndrome) chronic [facility] Work Phone: evaluation noteNo assessment information available [facility] Work Phone: evaluation note* Diagnosis Onset Date Resolution Status Contact with and (suspected) exposure to other viral communicable diseases acute URI (upper respiratory infection) acute Encounter for routine gynecological examination noneactive [facility] Work Phone: evaluation note* Diagnosis Onset Date Resolution Status Back pain acute Segmental and somatic dysfunction of cervical region acute Segmental and somatic dysfunction of lumbar region acute Segmental and somatic dysfunction of sacral region acute Segmental and somatic dysfunction of thoracic region acute Acute upper respiratory infection acute Contact with and (suspected) exposure to other viral communicable diseases acute URI (upper respiratory infection) acute [facility] Work Phone: evaluation note* Diagnosis Onset Date Resolution Status Back pain acute Segmental and somatic dysfunction of cervical region acute Segmental and somatic dysfunction of lumbar region acute Segmental and somatic dysfunction of sacral region acute Segmental and somatic dysfunction of thoracic region acute Acute upper respiratory infection acute Contact with and (suspected) exposure to other viral communicable diseases acute URI (upper respiratory infection) acute Back pain acute Segmental and somatic dysfunction of cervical region acute Segmental and somatic dysfunction of lumbar region acute Segmental and somatic dysfunction of sacral region acute Segmental and somatic dysfunction of thoracic region acute Back pain acute Segmental and somatic dysfunction of cervical region acute Segmental and somatic dysfunction of lumbar region acute Segmental and somatic dysfunction of sacral region acute Segmental and somatic dysfunction of thoracic region acute [facility] Work Phone: evaluation note* Diagnosis Onset Date Resolution Status Back pain acute Segmental and somatic dysfunction of cervical region acute Segmental and somatic dysfunction of lumbar region acute Segmental and somatic dysfunction of sacral region acute Segmental and somatic dysfunction of thoracic region acute Acute upper respiratory infection acute Contact with and (suspected) exposure to other viral communicable diseases acute URI (upper respiratory infection) acute Back pain acute Segmental and somatic dysfunction of cervical region acute Segmental and somatic dysfunction of lumbar region acute Segmental and somatic dysfunction of sacral region acute Segmental and somatic dysfunction of thoracic region acute Back pain acute Segmental and somatic dysfunction of cervical region acute Segmental and somatic dysfunction of lumbar region acute Segmental and somatic dysfunction of sacral region acute Segmental and somatic dysfunction of thoracic region acute Epigastric pain acute Iron deficiency chronic Irritable bowel syndrome with diarrhea chronic [facility] Work Phone: Evaluation note* Diagnosis Onset Date Resolution Status Acute upper respiratory infection acute Contact with and (suspected) exposure to other viral communicable diseases acute URI (upper respiratory infection) acute Back pain acute Segmental and somatic dysfunction of cervical region acute Segmental and somatic dysfunction of lumbar region acute Segmental and somatic dysfunction of sacral region acute Segmental and somatic dysfunction of thoracic region acute Back pain acute Segmental and somatic dysfunction of cervical region acute Segmental and somatic dysfunction of lumbar region acute Segmental and somatic dysfunction of sacral region acute Segmental and somatic dysfunction of thoracic region acute Epigastric pain acute Iron deficiency chronic Irritable bowel syndrome with diarrhea chronic Ureteral stone acute [facility] Work Phone: Evaluation note* Diagnosis Abnormal plain x-ray of sacrum Elevated C-reactive protein (CRP) Pain of left hip Elevated sed rate Elevated sedimentation rate [facility] Additional Instructions Return for any worsening back pain, fever chills nausea or vomiting.[facility] Work Phone: Hospital Discharge instructions Additional Instructions Im[facility]: Rezilu for referral (narrative)No reason for referral information [facility]WMer[facility] Work Phone: Reason for visit Narrative* Procedure Authorization (Routine) - Closed Specialty Diagnoses / Procedures Referred By Contac t Referred To Contact Radiology Diagnoses Abnormal plain x-ray of sacrum Elevated C-reactive protein (CRP) Pain of left hip Elevated sed rate Procedures MRI Pelvis Without IV Contrast MRI Sacrum/Coccyx Without IV Contrast Tonja Das DO [address] [place] [id number] Phone: tel: fax: [place] [id number] [place] [phone] Phone: tel: Referral ID Status Reason Start Date Expiration Date Visits Re quested Visits Authorized [id number] Closed 01/16/2025 04/16/[address] [facility] Advance Directives Advance Directive Response Recorded Date/ Time Living Will No September 01 8:47am Power of Branch Associate Teller No September 01, 022 8:47am Advance Directive Response Recorded Date/ Time Living Will No October 24, 2 023 2:53pm Power of Branch Associate Teller No October 24, 2022 2:53pm Advance Directive Response Recorded Date/ Time Living Will No October 24, 023 3:53pm Power of Branch Associate Teller No October 24, 2022 3:53pm Advance Directive Response Recorded Date/ Time Living Will No December 14, 2022 10:15pm Power of Branch Associate Teller No December 14 10:15pm Advance Directive Response Recorded Date/ Time Living Will No November 01, 2023 2:00am Power of Branch Associate Teller No October 31 2:00am Advance Directive Response Recorded Date/ Time Living Will No November 01, 2023 3:00am Power of Branch Associate Teller No October 31 3:00am Advance Directive Response Recorded Date/ Time Living Will Yes January 02, 2024 12 :00pm Power of Branch Associate Teller Yes January 02, 2024 12:00pm Advance Directive Response Recorded Date/ Time Name of Medical Power of Branch Associate Teller YANIV MORGAN January 02, 2024 12:00pm Living Will Yes January 02, 2024 12 :00pm Power of Branch Associate Teller Yes January 02, 2024 12:00pm Chief Complaint and Reason for Visit Chief Complaint FLU SHOT right flank pain Chief Complaint FLU SHOT right flank pain COVID TEST/FEVER/SHORT OF BREATH/CHILLS Annual ([employer]) Reason for Visit Contact with and (rocha spected) exposure to other viral communicable diseases URI (upper respiratory infection) Encounter for routine gynecological examination Chief Complaint COVID-19 Chief Complaint EST CARE SORE THROAT, CHILLS Back pain Back pain FLANK Reason for Visit Back pain Segmental and somatic dysfunction of cervical region Segmental and somatic dysfunction of lumbar region Segmental and somatic dysfunction of sacral region Segmental and somatic dysfunction of thoracic region Acute upper respiratory infection Contact with and (suspected) exposure to other viral communicable diseases URI (upper respiratory infection) Back pain Segmental and somatic dysfunction of cervical region Segmental and somatic dysfunction of lumbar region Segmental and somatic dysfunction of sacral region Segmental and somatic dysfunction of thoracic region Back pain Segmental and somatic dysfunction of cervical region Segmental and somatic dysfunction of lumbar region Segmental and somatic dysfunction of sacral region Segmental and somatic dysfunction of thoracic region Chief Complaint EST CARE SORE THROAT, CHILLS Back pain Back pain FLANK FU E ORDERS Reason for Visit Back pain Segmental and somatic dysfunction of cervical region Segmental and somatic dysfunction of lumbar region Segmental and somatic dysfunction of sacral region Segmental and somatic dysfunction of thoracic region Acute upper respiratory infection Contact with and (suspected) exposure to other viral communicable diseases URI (upper respiratory infection) Back pain Segmental and somatic dysfunction of cervical region Segmental and somatic dysfunction of lumbar region Segmental and somatic dysfunction of sacral region Segmental and somatic dysfunction of thoracic region Back pain Segmental and somatic dysfunction of cervical region Segmental and somatic dysfunction of lumbar region Segmental and somatic dysfunction of sacral region Segmental and somatic dysfunction of thoracic region Epigastric pain Iron deficiency Irritable bowel syndrome with diarrhea Chief Complaint EST CARE SORE THROAT, CHILLS Back pain Back pain FLANK FU E ORDERS LEFT URETERAL STONE Reason for Visit Back pain Segmental and somatic dysfunction of cervical region Segmental and somatic dysfunction of lumbar region Segmental and somatic dysfunction of sacral region Segmental and somatic dysfunction of thoracic region Acute upper respiratory infection Contact with and (suspected) exposure to other viral communicable diseases URI (upper respiratory infection) Back pain Segmental and somatic dysfunction of cervical region Segmental and somatic dysfunction of lumbar region Segmental and somatic dysfunction of sacral region Segmental and somatic dysfunction of thoracic region Back pain Segmental and somatic dysfunction of cervical region Segmental and somatic dysfunction of lumbar region Segmental and somatic dysfunction of sacral region Segmental and somatic dysfunction of thoracic region Epigastric pain Iron deficiency Irritable bowel syndrome with diarrhea Chief Complaint SORE THROAT, CHILLS Back pain Back pain FLANK FU E ORDERS LEFT URETERAL STONE Cysto, left ureteroscopy laser lith Reason for Visit Acute upper respirat ory infection Contact with and (suspected) exposure to other viral communicable diseases URI (upper respiratory infection) Back pain Segmental and somatic dysfunction of cervical region Segmental and somatic dysfunction of lumbar region Segmental and somatic dysfunction of sacral region Segmental and somatic dysfunction of thoracic region Back pain Segmental and somatic dysfunction of cervical region Segmental and somatic dysfunction of lumbar region Segmental and somatic dysfunction of sacral region Segmental and somatic dysfunction of thoracic region Epigastric pain Iron deficiency Irritable bowel syndrome with diarrhea Ureteral stone Chief Complaint Admit Date 3 M FU October 12, 2024 12:26pm Reason for Visit Admit Date Elevated C-reactive protein (CRP) Februa ry 2024 12:26pm Irritable bowel syndrome with diarrhea F ebruary 2024 12:26pm Chief Complaint Admit Date Nexplanon Insertion March 21, 2025 3:24 pm Chief Complaint Admit Date Nexplanon Insertion March 21, 2025 3:24 pm TB TEST / SELF PAY April 02, 2025 12: 08pm Reason for Visit Admit Date Contraceptive management March 21, 2025 3:24pm Summary Purpose Family History No Family History Records FoundNo Family History Records Found Additional Source Comments Goals (unrecognized section and content) Goals may be documented in a n alternate sectionGoals may be documented in an alternate sectionGoals may be documented in an alternate sectionGoals may be documented in an alternate section Care Teams (unrecognized sec tion and content) Team Status: Active Member Role Status Dates Dr. Antonio Templeton MD Family Provider Active Dr. Antonio Templeton MD Primary Care Provider Active Team Status: Inactive Member Role Status Dates Dr. Antonio Templeton MD Primary Care Provider, Referring P rovider Active Jay TABARES, PA Attending Provider Active Team Status: Inactive Member Role Status Dates Dr. Antonio Templeton MD Primary Care Provider Active Dr. George Black DO Emergency Provider Active Team Status: Inactive Member Role Status Dates Dr. Antonio Templeton MD Primary Care Provider, Referring P rovider Active Dr. Roxana Huffman DO Attending Provider Activ e Team Status: Inactive Member Role Status Dates Dr. Antonio Templeton MD Primary Care Provider, Referring P rovider Active Darin Atkins PA, PA Attending Provider Active Team Status: Inactive Member Role Status Dates Dr. Antonio Templeton MD Primary Care Provider Active Dr. George Black DO Attending Provider, Emergency Provide r Active Team Status: Inactive Member Role Status Dates Dr. Antonio Templeton MD Primary Care Provider Active Dr. Roxana Huffman DO Attending Provider Activ e Team Status: Active Member Role Status Dates Dr. Antonio Templeton MD Primary Care Provider Active Health Risk Assessment Attending Provider, Referring P rovider Active Team Status: Inactive Member Role Status Dates Dr. Antonio Templeton MD Primary Care Provider, Attending P rovider Active Team Status: Inactive Member Role Status Dates Dr. Antonio Templeton MD Primary Care Provider, Referring P rovider Active Dr. Monica Martinez DC Attending Provider Active Team Status: Inactive Member Role Status Dates Dr. Antonio Templeton MD Primary Care Provider Active Dr. Antonio Ramirez DO Emergency Provider Active Team Status: Inactive Member Role Status Dates Dr. Antonio Templeton MD Primary Care Provider, Referring P rovider Active Dr. Timothy Thompson DO Attending Provider Active Team Status: Inactive Member Role Status Dates Dr. Antonio Templeton MD Primary Care Provider Active Dr. Antonio Ramirez DO Attending Provider, Emergency P rovider Active Team Status: Inactive Member Role Status Dates Dr. Antonio Templeton MD Primary Care Provider Active Dr. Timothy Thompson DO Attending Provider, Referring Provider Active Team Status: Inactive Member Role Status Dates Dr. Antonio Templeton MD Primary Care Provider Active Dr. Stormy Carreon MD Attending Provider, Referring P rovider Active Team Status: Inactive Member Role Status Dates Dr. Antonio Templeton MD Primary Care Provider Active Start: October 12, 2024 End: October 12, 2024 Dr. Antonio Templeton MD Referring Provider Active St art: October 12, 2024 End: October 12, 2024 RAYSHAWN Funes Attending Provider Active Start: October 12, 2024 End: October 12, 2024 Team Status: Inactive Member Role Status Dates TARYN MCGRATH Attending Provider Active Start: 2024 End: November 16, 2024 TARYN MCGRATH Referring Provider Active Start: [facility] 2024 End: November 16, 2024 Dr. Antonio Templeton MD Primary Care Provider Active Start: November 16, 2024 End: November 16, 2024 Team Status: Active Member Role/Relationship Status Dates Dr. Antonio Templeton MD Family Provider Active Dr. Antonio Templeton MD Primary Care Provider Active Team Status: Inactive Member Role/Relationship Status Dates Dr. Antonio Templeton MD Primary Care Provider Active Start: February 26, 2025 Dr. Stormy Carreon MD Attending Provider Active Start: February 26, 2025 Team Status: Inactive Member Role/Relationship Status Dates Dr. Antonio Templeton MD Primary Care Provider Active Start: March 21, 2025 End: March 21, 2025 Dr. Antonio Templeton MD Referring Provider Active St art: March 21, 2025 End: March 21, 2025 Lorraine Sahu CNM Attending Provider Active S tart: March 21, 2025 End: March 21, 2025 Team Status: Inactive Member Role/Relationship Status Dates Dr. Antonio Templeton MD Primary Care Provider Active Start: April 02, 2025 End: April 02, 2025 Dr. Antonio Templeton MD Referring Provider Active St art: April 02, 2025 End: April 02, 2025 Darin TABARES, PA Attending Provider Active Start: April 02, 2025 End: April 02, 2025 INFORMATION SOURCE (unrecogn ized section and content) DATE CREATED AUTHOR 03/17/2025 [employer] [facility] DATE CREATED AUTHOR AUTHOR'S ORGANIZ ATION 03/23/2025 [facility] FOR RECORDS PERTAINING TO PATIENTS WHO ARE OR HAVE BEEN ENROLLED IN A CHEMICAL DEPENDENCY/SUBSTANCEABUSE PROGRAM, SOME INFORMATION MAY BE OMITTED. This clinical summary was aggregated from multiple sources. Caution should be exercised in using it in the provision of clinical care. This summary normalizes information from multiple sources, and as a consequence, information in this document may materially change the coding, format and clinical context of patient data. In addition, data may be omitted in some cases. CLINICAL DECISIONS SHOULD BE BASED ON THE PRIMARY CLINICAL RECORDS. [employer] provides no warranty or guarantee of the accuracy or completeness of information in this document.
== END | disposition home or self-care (01) ==
LOC: LAB 12:34
PROVIDERS: PCP Family Medicine; Referring Provider Family Medicine; Visit Provider Family Medicine
DX: L83 Acanthosis nigricans (principal); M06.9 Rheumatoid arthritis, unspecified
CPT/HCPCS: 36415; 80053; 83036; 84443; 85652; 86140

== ENCOUNTER → 2025-04-26 | Outpatient (CLI) | payer OTHER, SELFPAY | END | disposition home or self-care (01) | LOC: LABSPEC 11:27 | PROVIDERS: PCP Family Medicine; Visit Provider Advanced Practice Midwife | DX: N89.8 Other specified noninflammatory disorders of vagina (principal) | CPT/HCPCS: 87070; 87205 ==